=== PATIENT | male | born 1940 | race Caucasian/White ===

== ENCOUNTER → 2018-06-14 | Outpatient (CLI) | payer MEDICARE, BC | END | disposition home or self-care (01) | LOC: LABPAT 15:35 | PROVIDERS: ATTEND Surgery | DX: Z01.818 Encounter for other preprocedural examination (principal); K43.2 Incisional hernia without obstruction or gangrene | CPT/HCPCS: 36415; 86850; 86900; 86901; 93005 ==

== ENCOUNTER 2018-06-22 09:18 | Day surgery (SDC) | payer MEDICARE, BC ==
[2018-06-17 13:33] VITALS: BMI 34.0
[~2018-06-22 09:18] MED LIST: DEXAMETHASONE SOD PHOSPHATE 10 MG/ML 1 ML VIAL IV ONE; HEPARIN SODIUM,PORCINE 5,000 UNIT/ML 1 ML VIAL SQ ONE; HYDROmorphone 0.5 MG/0.5 ML SYRINGE IVP PRN; LACTATED RINGERS 1,000 ML IV SCH; LIDOCAINE 1% 20 ML VIAL (10MG/ML) FOR IV START INTRADERMA PRN; ONDANSETRON 4 MG/2 ML VIAL IVP ONE; ceFAZolin 3 GM in SODIUM CHLORIDE 0.9% 100 ML IVPB ONE
[2018-06-22] MEDS ORDERED: LACTATED RINGERS 1,000 ML IV ONE ×2 (10:30→12:20)
[2018-06-22] MEDS ORDERED: ONDANSETRON 4 MG/2 ML VIAL IVP ONE (10:35)
[2018-06-22] MEDS ORDERED: MIDAZOLAM (PF) 2 MG/2 ML VIAL IVP ONE (10:56)
--- NOTE | 2018-06-22 11:01 | P.GSHP ---
History of Present Illness H&P Date: 06/22/18 Chief Complaint: Ventral hernia This is a 77-year-old male who has developed a ventral hernia. Patient is a mass in the supraumbilical position. Past Medical History Past Medical History: Atrial Fibrillation, Heart Failure, GERD/Reflux, Renal Disease, Sleep Apnea/CPAP/BIPAP, Thyroid Disorder Additional Past Medical History / Comment(s): has cpap History of Any Multi-Drug Resistant Organisms: None Reported Past Surgical History: Hernia Repair, Pacemaker Additional Past Surgical History / Comment(s): aortic valve replacement 2011 Past Anesthesia/Blood Transfusion Reactions: No Reported Reaction Type of Cardiac Device: Permanent Pacemaker Device Placement Date:: 2013 Smoking Status: Never smoker - Past Family History Mother Family Medical History: Cancer Father Family Medical History: Cancer Brother(s) Family Medical History: Cancer Medications and Allergies Home Medications Medication Instructions Recorded Confirmed Type Bumetanide [BUMEX] 2 mg PO BID 06/17/18 06/22/18 History Cetirizine HCl [Zyrtec] 10 mg PO HS 06/17/18 06/22/18 History Cholecalciferol [Vitamin D3] 1,000 unit PO DAILY 06/17/18 06/22/18 History Cod Liver Oil 1 each PO DAILY 06/17/18 06/22/18 History Fluticasone Nasal [place] [Flonase 1 spray EA NOSTRIL DAILY PRN 06/17/18 06/22/18 History Nasal [place]] Levothyroxine Sodium [Synthroid] 50 mcg PO DAILY 06/17/18 06/22/18 History Metolazone [Zaroxolyn] 2.5 mg PO MOTH PRN 06/17/18 06/22/18 History Montelukast [Singulair] 10 mg PO DAILY 06/17/18 06/22/18 History Multivitamins, Thera [Multivitamin 1 tab PO DAILY 06/17/18 06/22/18 History (formulary)] Ocuvite Lutein 1 tab PO DAILY 06/17/18 06/22/18 History Omeprazole [PriLOSEC] 20 mg PO AC-BID 06/17/18 06/22/18 History Potassium Chloride 40 meq PO BID 06/17/18 06/22/18 History Prevagen 10 mg PO DAILY 06/17/18 06/22/18 History Sennosides [Ex-Lax Maximum 50 mg PO BID 06/17/18 06/22/18 History Strength] Sotalol HCl [Sotalol AF] 120 mg PO BID 06/17/18 06/22/18 History Stool Softner 1 tab PO BID 06/17/18 06/22/18 History Tamsulosin HCl [Flomax] 0.4 mg PO HS 06/17/18 06/22/18 History Warfarin [Coumadin] 7.5 mg PO DAILY 06/17/18 06/22/18 History buPROPion [Wellbutrin] 100 mg PO DAILY 06/17/18 06/22/18 History Allergies Allergy/AdvReac Type Severity Reaction Status Date / Time diphenhydramine Allergy Itching Verified 06/22/18 10:38 [From Xiomara] Surgical - Exam Vital Signs Temp Pulse Resp BP Pulse Ox 97.1 F L 80 16 104/58 97 06/22/18 10:25 06/22/18 10:25 06/22/18 10:25 06/22/18 10:25 06/22/18 10:25 - General well developed, well nourished, no distress - Eyes PERRL - ENT normal pinna - Neck no masses - Respiratory normal expansion - Cardiovascular Rhythm: regular - Abdomen 5 cm ventral hernia located in the supraumbilical position Abdomen: soft, non tender Assessment and Plan Assessment: Ventral hernia. We'll perform laparoscopic robotic-assisted repair.
[2018-06-22] MEDS ORDERED: BUPIVACAIN-EPI 0.5%-1:200,000 30 ML VIAL SQ ONE (11:16)
[2018-06-22] MEDS ORDERED: GLYCOPYRROLATE 0.2 MG/ML 2 ML VIAL ONE (11:21)
[2018-06-22] MEDS ORDERED: ROPIVACAINE 5 MG/ML 30 ML VIAL ONE (11:21)
[2018-06-22] MEDS ORDERED: SUCCINYLCHOLINE CHLORIDE 100 MG/5 ML SYR IV ONE (11:21)
[2018-06-22] MEDS ORDERED: LIDOCAINE 1% INJ 10MG/ML (20 ML MDV) ONE (11:21)
[2018-06-22] MEDS ORDERED: fentaNYL (PF) 50 MCG/ML 2 ML AMP ONE (11:21)
[2018-06-22] MEDS ORDERED: LIDOCAINE 2%-EPI 1:100,000 20 ML VIAL ONE (11:21)
[2018-06-22] MEDS ORDERED: PROPOFOL 10 MG/ML 20 ML VIAL IV ONE (11:21)
[2018-06-22] MEDS ORDERED: ROCURONIUM BROMIDE 10 MG/ML 10 ML VIAL IV ONE (11:21)
[2018-06-22] MEDS ORDERED: NEOSTIGMINE 1 MG/ML 10 ML VIAL ONE (11:21)
[2018-06-22 12:36] VITALS: TEMP 97
--- NOTE | 2018-06-22 12:41 | P.OP ---
Date of Procedure: 06/22/18 Preoperative Diagnosis: Umbilical hernia Postoperative Diagnosis: Laparoscopic repair of umbilical hernia infarcted omentum Procedure(s) Performed: Laparoscopic robotic system repair of umbilical hernia Excision of infarcted omentum Anesthesia: MARGARET Surgeon: Omari Franco Estimated Blood Loss (ml): 5 Pathology: other (Omentum) Condition: stable Disposition: PACU Description of Procedure: TThe patient was placed on the operating table in the supine position. He received general anesthesia. His abdomen was prepped and draped usual fashion. Using a 5 mm optical trocar under direct visualization the peritoneal cavity was entered in the left upper quadrant. The abdomen was then insufflated. The laparoscope was placed back into the perineal cavity. Next a 8 mm robotic trocar was placed in the left lower quadrant and a 12 mm robotic trocar was priyanka james in the left lateral position. The original 5 mm trocar was exchanged for a 8 mm robotic trocar. The patient's placed in the left side up position. And the patient was undocked the robot. There was a portion of the omentum which was infarcted and adhered to the abdominal wall. This was dissected using the cautery. The specimen was sent to pathology. The umbilical hernia was visualized. Using hook cautery the peritoneum over the umbilical hernia was excised. The fascial opening was repaired using 0V LOC suture. Next a piece of 11 cm round ventral light ST mesh was placed into the. Cavity and secured with 2 OV lock suture. The patient was undocked the robot. The needles were retrieved. The fascia of the 12 mm trocar site was closed with 0 Ethibond suture. Skin was closed in terrupted 3-0 Monocryl suture. Dermabond dressings was applied. Patient top procedure well and was sent to recovery room stable condition.
--- NOTE | 2018-06-22 13:38 | P.ONQ ---
Anesthesiology Proc Note - PNB - Peripheral Nerve Block Performed Bilateral Rectus Abdominis Single Time Out Performed: Yes Procedure Start Time: 10:57 Procedure Stop Time: 11:04 Indication: Acute Post-Operative Pain, Requested by physician Sedation Type: Sedate with meaningful contact maintained Preparation: Sterile Prep Position: Supine Needle Size: 50mm (2") Needle Gauge: 21 Technique: Ultrasound (ropi .5% 15cc plus xylo 2% with epi 10cc) Blood Aspirated: No Pain Paresthesia on Injection Noted: No Resistance on Injection: Normal Events: Uneventful and Well Tolerated
[2018-06-22] MEDS ORDERED: HYDROcodone/APAP 7.5-325MG 1 EACH TAB PO ONE (13:54)
[2018-06-22 13:55] VITALS: RESP 18
[2018-06-22 14:31] VITALS: BP 131/77; PULSE 81
== END 2018-06-22 16:25 | disposition home or self-care (01) ==
LOC: OR 09:18
PROVIDERS: ATTEND Surgery
DX: K42.0 Umbilical hernia with obstruction, without gangrene (principal); I48.91 Unspecified atrial fibrillation; I50.9 Heart failure, unspecified; N28.9 Disorder of kidney and ureter, unspecified; E07.9 Disorder of thyroid, unspecified; G47.33 Obstructive sleep apnea (adult) (pediatric); K21.9 Gastro-esophageal reflux disease without esophagitis; Z99.89 Dependence on other enabling machines and devices; Z95.0 Presence of cardiac pacemaker; Z95.2 Presence of prosthetic heart valve; Z79.01 Long term (current) use of anticoagulants; Z79.890 Hormone replacement therapy; Z79.899 Other long term (current) drug therapy; Z88.8 Allergy status to other drugs, medicaments and biological substances
CPT/HCPCS: 64488; 49653; C1781; J1644; J1100; J2710; J0690; J2405; J2001; J3010; J2795; J0330; J2704; J2250; 36415; 86850; 86900; 86901; 88305

== ENCOUNTER 2020-02-22 13:19 | Inpatient (IN) | payer MEDICARE, BC ==
[2020-02-22 14:48] LABS: Basophils # (A) 0.1 k/uL (0-0.2); Basophils % (A) 1 %; Eosinophils # (A) 0.1 k/uL (0-0.7); Eosinophils % (A) 1 %; HCT 36.2 % (39.0-53.0); HGB 11.9 gm/dL (13.0-17.5); Lymphocytes % (A) 16 %; MCH 30.7 pg (25.0-35.0); MCHC 32.8 g/dL (31.0-37.0); MCV 93.5 fL (80.0-100.0); Mean Platelet Volume 7.5; Monocytes % (A) 8 %; Neutrophils # (A) 9.2 k/uL (1.3-7.7); Neutrophils % (A) 72 %; Platelet Count 213 k/uL (150-450); RBC 3.87 m/uL (4.30-5.90); RDW 15.7 % (11.5-15.5); WBC 12.7 k/uL (3.8-10.6)
[2020-02-22 15:00] LABS: D-Dimer 0.55 mg/L FEU (<0.60); INR 1.3 (<1.2); Partial Thromboplastin Time 29.5 sec (22.0-30.0); Prothrombin Time 12.7 sec (9.0-12.0)
[2020-02-22 15:09] LABS: Albumin 3.8 g/dL (3.5-5.0); Calcium 9.6 mg/dL (8.4-10.2); Magnesium 2.1 mg/dL (1.6-2.3); Potassium 3.9 mmol/L (3.5-5.1); Total Bilirubin 0.8 mg/dL (0.2-1.3); Total Protein 7.1 g/dL (6.3-8.2)
[2020-02-22] MEDS ORDERED: FUROSEMIDE 10 MG/ML 4 ML VIAL IV STA (15:51)
--- NOTE | 2020-02-22 16:01 | ED ---
SOB HPI - General Chief Complaint: Weakness Stated Complaint: ABD pain,SOB Time Seen by Provider: 02/22/20 13:20 Source: patient Mode of arrival: ambulatory Limitations: no limitations - History of Present Illness Initial Comments: Patient is a 79-year-old male possible history of A. fib, heart failure who presents to the emergency department with reported exertional dyspnea. States the symptoms have been present since January 11 when he had an ablation at [facility] in [place]. States he followed up with his urologist who is insistent that it wasn't related to his heart and therefore referred him to his show card letterer. Patient states his symptoms are so severe that it led him to the emergency department [facility] yesterday. Chest x-ray was performed. Computed tomography scan of the abdomen and pelvis was performed as the patient was complaining of bilateral flank pain. Chest x-ray demonstrated vascular congestion. They were going to transfer the patient to [place] last night however because the patient had an appointment with Dr. Jones today, that he follow-up with him first. Patient was seen in Dr. Jones's office and he sent the patient immediately here for hospital admission. Patient denies any chest pain. No nausea or vomiting. NO other alleviating, centrifugal separator modifying factors - Related Data Home Medications Medication Instructions Recorded Confirmed Bumetanide [BUMEX] 2 mg PO BID 06/17/18 02/22/20 Cholecalciferol [Vitamin D3] 2,000 unit PO DAILY 06/17/18 02/22/20 Cod Liver Oil 1 cap PO DAILY 06/17/18 02/22/20 Fluticasone Nasal [place] [Flonase 1 spray EA NOSTRIL DAILY PRN 06/17/18 02/22/20 Nasal [place]] Montelukast [Singulair] 10 mg PO HS 06/17/18 02/22/20 Multivitamins, Thera [Multivitamin 1 tab PO AC-BRKFST 06/17/18 02/22/20 (formulary)] Omeprazole [PriLOSEC] 20 mg PO AC-BID 06/17/18 02/22/20 Potassium Chloride 40 meq PO BID 06/17/18 02/22/20 Tamsulosin HCl [Flomax] 0.4 mg PO HS 06/17/18 02/22/20 metOLazone [Zaroxolyn] 5 mg PO DAILY PRN 06/17/18 02/22/20 Acetaminophen Tab [Tylenol Tab] 500 mg PO Q4H PRN 02/22/20 02/22/20 Acetaminophen [Tylenol Arthritis] 1,300 mg PO Q8H PRN 02/22/20 02/22/20 Allopurinol [Zyloprim] 100 mg PO AC-BRKFST 02/22/20 02/22/20 Amiodarone [Cordarone] 200 mg PO AC-BRKFST 02/22/20 02/22/20 Apixaban [Eliquis] 5 mg PO BID 02/22/20 02/22/20 Docusate [Colace] 100 mg PO DAILY PRN 02/22/20 02/22/20 Levothyroxine Sodium [Synthroid] 75 mcg PO DAILY 02/22/20 02/22/20 Loratadine 10 mg PO AC-BRKFST 02/22/20 02/22/20 Magnesium Oxide [Baptiste] 500 mg PO AC-BRKFST 02/22/20 02/22/20 Spironolactone 12.5 mg PO DAILY 02/22/20 02/22/20 Vits A,C,E/Lutein/Minerals 1 tab PO DAILY 02/22/20 02/22/20 [Ocuvite with Lutein Tablet] buPROPion HCL [Wellbutrin SR] 100 mg PO BID 02/22/20 02/22/20 carvediloL [Coreg] 3.125 mg PO PC-BID 02/22/20 02/22/20 Allergies Allergy/AdvReac Type Severity Reaction Status Date / Time diphenhydramine Allergy Itching Verified 02/22/20 16:16 [From Benadryl] Review of Systems ROS Statement: Those systems with pertinent positive or pertinent negative responses have been documented in the HPI. ROS Other: All systems not noted in ROS Statement are negative. Past Medical History Past Medical History: Atrial Fibrillation, Heart Failure, GERD/Reflux, Renal Disease, Sleep Apnea/CPAP/BIPAP, Thyroid Disorder Additional Past Medical History / Comment(s): has cpap History of Any Multi-Drug Resistant Organisms: None Reported Past Surgical History: Hernia Repair, Pacemaker Additional Past Surgical History / Comment(s): aortic valve replacement 2011 Past Anesthesia/Blood Transfusion Reactions: No Reported Reaction Type of Cardiac Device: Permanent Pacemaker Device Placement Date:: 2013 Past Psychological History: No Psychological Hx Reported Smoking Status: Never smoker Past Alcohol Use History: Rare Past Drug Use History: None Reported - Past Family History Mother Family Medical History: Cancer Father Family Medical History: Cancer Brother(s) Family Medical History: Cancer General Exam Limitations: no limitations General appearance: alert, in no apparent distress Head exam: Present: atraumatic, normocephalic, normal inspection Eye exam: Present: normal appearance, PERRL, EOMI. Absent: scleral icterus, conjunctival injection, periorbital swelling ENT exam: Present: normal exam, mucous membranes moist Neck exam: Present: normal inspection. Absent: tenderness, meningismus, lymphadenopathy Respiratory exam: Present: normal lung sounds bilaterally, other (dyspneic when moving around in bed or attempting to ambulate). Absent: respiratory distress, wheezes, rales, rhonchi, stridor Cardiovascular Exam: Present: regular rate, normal rhythm, normal heart sounds. Absent: systolic murmur, diastolic murmur, rubs, gallop, clicks GI/Abdominal exam: Present: soft, normal bowel sounds. Absent: distended, tenderness, guarding, rebound, rigid Extremities exam: Present: normal inspection, full ROM, normal capillary refill. Absent: tenderness, pedal edema, joint swelling, calf tenderness Back exam: Present: normal inspection Neurological exam: Present: alert, oriented X3, CN II-XII intact Psychiatric exam: Present: normal affect, normal mood Skin exam: Present: warm, dry, intact, normal color. Absent: rash Course Vital Signs 02/22/20 02/22/20 02/22/20 13:22 13:54 13:56 Temperature 97.8 F Pulse Rate 98 Pulse Rate [ 98 Shelter Supervisor ] Respiratory 18 23 Rate Blood Pressure 103/50 Blood Pressure [Left Arm] O2 Sat by Pulse 100 Oximetry 02/22/20 02/22/20 02/22/20 15:41 16:12 16:32 Temperature 97.6 F Pulse Rate 70 78 Pulse Rate [ 86 Shelter Supervisor ] Respiratory 18 18 24 Rate Blood Pressure 123/62 112/63 Blood Pressure 124/67 [Left Arm] O2 Sat by Pulse 95 96 97 Oximetry 02/22/20 02/22/20 17:57 18:17 Temperature Pulse Rate 80 87 Pulse Rate [ Shelter Supervisor ] Respiratory 18 18 Rate Blood Pressure 113/52 129/56 Blood Pressure [Left Arm] O2 Sat by Pulse 96 97 Oximetry Medical Decision Making - Medical Decision Making Upon arrival patient was placed into room 2. A thorough history and physical exam was performed. Laboratories as were conducted. Did review the patient's history. Lab studies remarkable for a troponin of 0.025. BNP is 3500. Lactic acid 2.7. The patient was given a dose of Lasix area and recommended hospital admission for evaluation by cardiology and pulmonology. Discussed case with Dr. Gonzales who accepted admission. Patient currently awaiting a bed - Lab Data Result diagrams: 02/25/20 05:39 02/25/20 05:39 Lab Results 02/22/20 02/22/20 02/22/20 Range/Units 14:22 14:22 14:22 WBC 12.7 H (3.8-10.6) k/uL RBC 3.87 L (4.30-5.90) m/uL Hgb 11.9 L (13.0-17.5) gm/dL Hct 36.2 L (39.0-53.0) % MCV 93.5 (80.0-100.0) fL MCH 30.7 (25.0-35.0) pg MCHC 32.8 (31.0-37.0) g/dL RDW 15.7 H (11.5-15.5) % Plt Count 213 (150-450) k/uL MPV 7.5 Neutrophils % 72 % Lymphocytes % 16 % Monocytes % 8 % Eosinophils % 1 % Basophils % 1 % Neutrophils # 9.2 H (1.3-7.7) k/uL Lymphocytes # 2.0 (1.0-4.8) k/uL Monocytes # 1.0 (0-1.0) k/uL Eosinophils # 0.1 (0-0.7) k/uL Basophils # 0.1 (0-0.2) k/uL PT 12.7 H (9.0-12.0) sec INR 1.3 H (<1.2) APTT 29.5 (22.0-30.0) sec D-Dimer 0.55 (<0.60) mg/L FEU Sodium 137 (137-145) mmol/L Potassium 3.9 (3.5-5.1) mmol/L Chloride 97 L (98-107) mmol/L Carbon Dioxide 29 (22-30) mmol/L Anion Gap 11 mmol/L BUN 41 H (9-20) mg/dL Creatinine 2.11 H (0.66-1.25) mg/dL Est GFR (CKD-EPI)AfAm 33 (>60 ml/min/1.73 sqM) Est GFR (CKD-EPI)NonAf 29 (>60 ml/min/1.73 sqM) Glucose 107 H (74-99) mg/dL Lactic Ac Sepsis Rflx Plasma Lactic Acid Eugene (0.7-2.0) mmol/L Calcium 9.6 (8.4-10.2) mg/dL Magnesium 2.1 (1.6-2.3) mg/dL Total Bilirubin 0.8 (0.2-1.3) mg/dL AST 32 (17-59) U/L ALT 22 (4-49) U/L Alkaline Phosphatase 124 (38-126) U/L Troponin I (0.000-0.034) ng/mL NT-Pro-B Natriuret Pep pg/mL Total Protein 7.1 (6.3-8.2) g/dL Albumin 3.8 (3.5-5.0) g/dL Lipase 88 (23-300) U/L 02/22/20 02/22/20 02/22/20 Range/Units 14:22 14:22 14:22 WBC (3.8-10.6) k/uL RBC (4.30-5.90) m/uL Hgb (13.0-17.5) gm/dL Hct (39.0-53.0) % MCV (80.0-100.0) fL MCH (25.0-35.0) pg MCHC (31.0-37.0) g/dL RDW (11.5-15.5) % Plt Count (150-450) k/uL MPV Neutrophils % % Lymphocytes % % Monocytes % % Eosinophils % % Basophils % % Neutrophils # (1.3-7.7) k/uL Lymphocytes # (1.0-4.8) k/uL Monocytes # (0-1.0) k/uL Eosinophils # (0-0.7) k/uL Basophils # (0-0.2) k/uL PT (9.0-12.0) sec INR (<1.2) APTT (22.0-30.0) sec D-Dimer (<0.60) mg/L FEU Sodium (137-145) mmol/L Potassium (3.5-5.1) mmol/L Chloride (98-107) mmol/L Carbon Dioxide (22-30) mmol/L Anion Gap mmol/L BUN (9-20) mg/dL Creatinine (0.66-1.25) mg/dL Est GFR (CKD-EPI)AfAm (>60 ml/min/1.73 sqM) Est GFR (CKD-EPI)NonAf (>60 ml/min/1.73 sqM) Glucose (74-99) mg/dL Lactic Ac Sepsis Rflx Plasma Lactic Acid Eugene 2.7 H* (0.7-2.0) mmol/L Calcium (8.4-10.2) mg/dL Magnesium (1.6-2.3) mg/dL Total Bilirubin (0.2-1.3) mg/dL AST (17-59) U/L ALT (4-49) U/L Alkaline Phosphatase (38-126) U/L Troponin I 0.025 (0.000-0.034) ng/mL NT-Pro-B Natriuret Pep 3510 pg/mL Total Protein (6.3-8.2) g/dL Albumin (3.5-5.0) g/dL Lipase (23-300) U/L 02/22/20 Range/Units 15:19 WBC (3.8-10.6) k/uL RBC (4.30-5.90) m/uL Hgb (13.0-17.5) gm/dL Hct (39.0-53.0) % MCV (80.0-100.0) fL MCH (25.0-35.0) pg MCHC (31.0-37.0) g/dL RDW (11.5-15.5) % Plt Count (150-450) k/uL MPV Neutrophils % % Lymphocytes % % Monocytes % % Eosinophils % % Basophils % % Neutrophils # (1.3-7.7) k/uL Lymphocytes # (1.0-4.8) k/uL Monocytes # (0-1.0) k/uL Eosinophils # (0-0.7) k/uL Basophils # (0-0.2) k/uL PT (9.0-12.0) sec INR (<1.2) APTT (22.0-30.0) sec D-Dimer (<0.60) mg/L FEU Sodium (137-145) mmol/L Potassium (3.5-5.1) mmol/L Chloride (98-107) mmol/L Carbon Dioxide (22-30) mmol/L Anion Gap mmol/L BUN (9-20) mg/dL Creatinine (0.66-1.25) mg/dL Est GFR (CKD-EPI)AfAm (>60 ml/min/1.73 sqM) Est GFR (CKD-EPI)NonAf (>60 ml/min/1.73 sqM) Glucose (74-99) mg/dL Lactic Ac Sepsis Rflx Y Plasma Lactic Acid Eugene (0.7-2.0) mmol/L Calcium (8.4-10.2) mg/dL Magnesium (1.6-2.3) mg/dL Total Bilirubin (0.2-1.3) mg/dL AST (17-59) U/L ALT (4-49) U/L Alkaline Phosphatase (38-126) U/L Troponin I (0.000-0.034) ng/mL NT-Pro-B Natriuret Pep pg/mL Total Protein (6.3-8.2) g/dL Albumin (3.5-5.0) g/dL Lipase (23-300) U/L - EKG Data EKG Comments: EKG demonstrates a ventricularly paced rhythm. Rate is 79. QRS 158. QTC of 548. Pacemaker captures appropriately. Disposition Clinical Impression: Flank pain, Exertional dyspnea, CHF (congestive heart failure), ADELINE (acute kidney injury) Disposition: ADMITTED IP TO THIS [facility] Condition: Stable Is patient prescribed a controlled substance at d/c from ED?: No Decision to Admit Reason: Admit from EC Decision Date: 02/22/20 Decision Time: 16:02
[2020-02-22] MEDS ORDERED: NALOXONE 0.4 MG/ML 1 ML VIAL IV PRN (16:02)
[2020-02-22] MEDS ORDERED: MORPHINE SULFATE 2 MG/ML SYRINGE IVP PRN (16:16)
[2020-02-22] MEDS ORDERED: MORPHINE SULFATE 2 MG/ML SYRINGE IVP STA (16:17)
[2020-02-23] MEDS: APIXABAN 5 MG TAB PO SCH ×3 (00:36→19:30)
[2020-02-23] MEDS: buPROPion SR 100 MG TABLET.ER PO SCH ×3 (00:36→19:35)
[2020-02-23] MEDS: BUMETANIDE 1 MG TAB PO SCH ×3 (00:37→19:35)
[2020-02-23] MEDS: carvediloL 3.125 MG TAB PO SCH ×3 (00:37→17:23)
[2020-02-23] MEDS: POTASSIUM CHLORIDE ER 20 MEQ TAB.ER PO SCH ×3 (00:37→19:30)
[2020-02-23] MEDS: ACETAMINOPHEN TAB 500 MG TAB PO PRN ×3 (05:09→19:30)
[2020-02-23] MEDS: LEVOTHYROXINE 75 MCG TAB PO SCH (05:10)
[2020-02-23 07:34] LABS: Basophils # (A) 0.1 k/uL (0-0.2); Basophils % (A) 1 %; Eosinophils # (A) 0.1 k/uL (0-0.7); Eosinophils % (A) 1 %; HCT 32.6 % (39.0-53.0); HGB 10.7 gm/dL (13.0-17.5); Lymphocytes # (A) 1.4 k/uL (1.0-4.8); Lymphocytes % (A) 13 %; MCH 30.5 pg (25.0-35.0); MCHC 32.8 g/dL (31.0-37.0); MCV 93.2 fL (80.0-100.0); Mean Platelet Volume 7.3; Monocytes # (A) 0.8 k/uL (0-1.0); Monocytes % (A) 7 %; Neutrophils # (A) 8.4 k/uL (1.3-7.7); Neutrophils % (A) 77 %; Platelet Count 170 k/uL (150-450); RDW 15.8 % (11.5-15.5); WBC 10.9 k/uL (3.8-10.6)
[2020-02-23] MEDS: MAGNESIUM OXIDE 400 MG TAB PO SCH (08:55)
[2020-02-23] MEDS: SPIRONOLACTONE 25 MG TAB PO SCH (08:55)
[2020-02-23] MEDS: LORATADINE 10 MG TAB PO SCH (08:55)
[2020-02-23] MEDS: AMIODARONE 200 MG TAB PO SCH (08:55)
[2020-02-23] MEDS: allopurinoL 100 MG TAB PO SCH (08:56)
[2020-02-23] MEDS ORDERED: metOLazone 5 MG TAB PO PRN (09:00)
[2020-02-23 11:05] LABS: African American GFR (CKD) 35.7 (60.0-200.0); Anion Gap 6.7 mmol/L (4.00-12.00); Carbon Dioxide 32.3 mmol/L (21.6-31.8); Non-African American GFR(CKD) 30.8 (60.0-200.0); Potassium 3.5 mmol/L (3.5-5.5)
--- NOTE | 2020-02-23 13:21 | XR ---
EXAMINATION TYPE: XR chest 1V portable DATE OF EXAM: 02/23/2020 COMPARISON: 06/26/2013 INDICATION: Dyspnea TECHNIQUE: Single frontal view of the chest is obtained. FINDINGS: The heart size is a prominent. Pacemaker overlies left chest. Sternotomy wires are in the midline.. The pulmonary vasculature is normal. The lungs are clear. No pneumothorax is evident. IMPRESSION: 1. No suspicious acute pulmonary process.
[2020-02-23] MEDS ORDERED: bisacodyL 10 MG SUPP RECTAL PRN (14:21)
[2020-02-23] MEDS ORDERED: bisacodyL 10 MG SUPP RECTAL STA (14:21)
--- NOTE | 2020-02-23 14:50 | P.HPIM ---
History of Present Illness H&P Date: 02/23/20 Chief Complaint: dyspnea on exertion 79 year old man with history of HFrEF s/p BiV, CKD III, s/p TAVR, AFlutter s/p ablation, CHICA on CPAP, hypothyroidism, HTN/HLD presented with dyspnea on exertion. Patient was seen in the ER in [place] for CAMACHO, gradually progressing, and was sent home with pulmonology follow up. However, upon being seen by pulmonology in clinic, he was sent to the ER in [facility] for admission given poor exercise tolerance. Pt reports having history of aortic valve replacement and recent ablation for rhythm issue. He says that since his ablat ion on 01/11, his symptoms have progressed. In [place], patient had a workup done with CXR and CT A/P, which demonstrated vascular congestion. Unfortunately the report from the CT A/P is not available to me at this time. Patient denies fevers, chills, nausea, vomiting, chest pain, palpitations, syncope, abdominal pain, dysuria, dyschezia, numbness/weakness of extremities. CXR shows vascular congestion. EKG demonstrates atrial flutter with rate of 300, and ventricle-paced rhythm at 70. BNP was 3500 on admission. Cr was 2.0, unclear baseline. Review of Systems All Systems reviewed and pertinent positives and negatives noted in HPI, all other symptoms are negative Past Medical History Past Medical History: Atrial Fibrillation, Heart Failure, GERD/Reflux, Renal Disease, Sleep Apnea/CPAP/BIPAP, Thyroid Disorder Additional Past Medical History / Comment(s): has cpap History of Any Multi-Drug Resistant Organisms: None Reported Past Surgical History: Hernia Repair, Pacemaker Additional Past Surgical History / Comment(s): aortic valve replacement 2011 Past Anesthesia/Blood Transfusion Reactions: No Reported Reaction Type of Cardiac Device: Permanent Pacemaker Device Placement Date:: 2013 Past Psychological History: No Psychological Hx Reported Smoking Status: Never smoker Past Alcohol Use History: Rare Past Drug Use History: None Reported - Past Family History Mother Family Medical History: Cancer Father Family Medical History: Cancer Brother(s) Family Medical History: Cancer Medications and Allergies Home Medications Medication Instructions Recorded Confirmed Type Bumetanide [BUMEX] 2 mg PO BID 06/17/18 02/22/20 History Cholecalciferol [Vitamin D3] 2,000 unit PO DAILY 06/17/18 02/22/20 History Cod Liver Oil 1 cap PO DAILY 06/17/18 02/22/20 History Fluticasone Nasal Burton [Flonase 1 spray EA NOSTRIL DAILY PRN 06/17/18 02/22/20 History Nasal Burton] Montelukast [Singulair] 10 mg PO HS 06/17/18 02/22/20 History Multivitamins, Thera [Multivitamin 1 tab PO AC-BRKFST 06/17/18 02/22/20 History (formulary)] Omeprazole [PriLOSEC] 20 mg PO AC-BID 06/17/18 02/22/20 History Potassium Chloride 40 meq PO BID 06/17/18 02/22/20 History Tamsulosin HCl [Flomax] 0.4 mg PO HS 06/17/18 02/22/20 History metOLazone [Zaroxolyn] 5 mg PO DAILY PRN 06/17/18 02/22/20 History Acetaminophen Tab [Tylenol Tab] 500 mg PO Q4H PRN 02/22/20 02/22/20 History Acetaminophen [Tylenol Arthritis] 1,300 mg PO Q8H PRN 02/22/20 02/22/20 History Allopurinol [Zyloprim] 100 mg PO AC-BRKFST 02/22/20 02/22/20 History Amiodarone [Cordarone] 200 mg PO AC-BRKFST 02/22/20 02/22/20 History Apixaban [Eliquis] 5 mg PO BID 02/22/20 02/22/20 History Docusate [Colace] 100 mg PO DAILY PRN 02/22/20 02/22/20 History Levothyroxine Sodium [Synthroid] 75 mcg PO DAILY 02/22/20 02/22/20 History Loratadine 10 mg PO AC-BRKFST 02/22/20 02/22/20 History Magnesium Oxide [Baptiste] 500 mg PO AC-BRKFST 02/22/20 02/22/20 History Spironolactone 12.5 mg PO DAILY 02/22/20 02/22/20 History Vits A,C,E/Lutein/Minerals 1 tab PO DAILY 02/22/20 02/22/20 History [Ocuvite with Lutein Tablet] buPROPion HCL [Wellbutrin SR] 100 mg PO BID 02/22/20 02/22/20 History carvediloL [Coreg] 3.125 mg PO PC-BID 02/22/20 02/22/20 History Allergies Allergy/AdvReac Type Severity Reaction Status Date / Time diphenhydramine Allergy Itching Verified 02/22/20 16:16 [From Benadryl] Physical Exam Osteopathic Statement: *. No significant issues noted on an osteopathic structural exam other than those noted in the History and Physical/Consult. Vitals: Vital Signs Temp Pulse Pulse Resp BP BP Pulse Ox 02/23/20 14:00 97.4 F L 86 16 130/75 99 02/23/20 08:00 97.5 F L 90 22 115/64 96 02/23/20 02:00 97.5 F L 82 18 107/52 93 L 02/22/20 20:00 97.6 F 82 24 124/67 97 02/22/20 18:17 87 18 129/56 97 02/22/20 17:57 80 18 113/52 96 02/22/20 16:32 97.6 F 86 24 124/67 97 02/22/20 16:12 78 18 112/63 96 02/22/20 15:41 70 18 123/62 95 Intake and Output 02/22/20 02/23/20 02/23/20 22:59 06:59 14:59 Intake Total 354 Balance 354 Intake: Oral 354 Other: Voiding Method Toilet Toilet # Voids 1 1 1 Weight 117.48 kg Gen: awake, alert HEENT: normocephalic, atraumatic, good hearing acuity, moist mucous membranes Resp: good air exchange, breathing comfortably with no accessory muscle use CVS: good distal perfusion x 4, +JVD to jaw in upright position, bounding carotid pulses GI: soft, NTTP, ND : no SPT, no CVAT, villa catheter not present MSK: + doughy 3+ pitting edema, no clubbing Neuro: non-focal, moving all extremities Psych: cooperative, euthymic mood Results CBC & Chem 7: 02/23/20 06:48 02/23/20 06:48 Labs: Abnormal Lab Results - Last 24 Hours (Table) 02/22/20 02/22/20 02/22/20 Range/Units 14:22 14:22 14:22 WBC 12.7 H (3.8-10.6) k/uL RBC 3.87 L (4.30-5.90) m/uL Hgb 11.9 L (13.0-17.5) gm/dL Hct 36.2 L (39.0-53.0) % RDW 15.7 H (11.5-15.5) % Neutrophils # 9.2 H (1.3-7.7) k/uL PT 12.7 H (9.0-12.0) sec INR 1.3 H (<1.2) Chloride 97 L (98-107) mmol/L Carbon Dioxide (21.6-31.8) mmol/L BUN 41 H (9-20) mg/dL Creatinine 2.11 H (0.66-1.25) mg/dL Est GFR (CKD-EPI)AfAm (60.0-200.0) Est GFR (CKD-EPI)NonAf (60.0-200.0) BUN/Creatinine Ratio (12.00-20.00) Ratio Glucose 107 H (74-99) mg/dL Plasma Lactic Acid Eugene (0.7-2.0) mmol/L 02/22/20 02/23/20 02/23/20 Range/Units 14:22 06:48 06:48 WBC 10.9 H (3.8-10.6) k/uL RBC 3.50 L (4.30-5.90) m/uL Hgb 10.7 L (13.0-17.5) gm/dL Hct 32.6 L (39.0-53.0) % RDW 15.8 H (11.5-15.5) % Neutrophils # 8.4 H (1.3-7.7) k/uL PT (9.0-12.0) sec INR (<1.2) Chloride (98-107) mmol/L Carbon Dioxide 32.3 H (21.6-31.8) mmol/L BUN 42.0 H (9-20) mg/dL Creatinine 2.0 H (0.66-1.25) mg/dL Est GFR (CKD-EPI)AfAm 35.7 L (60.0-200.0) Est GFR (CKD-EPI)NonAf 30.8 L (60.0-200.0) BUN/Creatinine Ratio 21.00 H (12.00-20.00) Ratio Glucose 138 H (74-99) mg/dL Plasma Lactic Acid Eugene 2.7 H* (0.7-2.0) mmol/L Thrombosis Risk Factor Assmnt - Choose All That Apply Any of the Below Risk Factors Present?: No Other Risk Factors: No Other congenital or acquired thrombophilia - If yes, enter type in comment: No Thrombosis Risk Factor Assessment Level: Very Low Risk Assessment and Plan Assessment: 1. Acute on chronic congestive heart failure exacerbation, likely systolic 2. CK D stage III 3. Atrial flutter 4. Biventricular pacemaker, V paced 5. CHICA on CPAP 6. Aortic stenosis status post TAVR in 2011 7. Hypothyroidism 79-year-old man with medical history of heart failure with reduced ejection fraction status post biventricular pacemaker, aortic stenosis status post total aortic valve replacement, atrial flutter status post ablation, CHICA on CPAP, CK D stage III, hypothyroidism presented with increasing dyspnea on exertion since his ablation on 01/11 as well as bounding JVD on physical exam, congested chest x-ray, elevated BNP concerning for heart failure exacerbation. Plan: - admit to telemetry - I/Os, daily weights - rec'd lasix 40mg IV once in ER, continue bumex 2mg BID - repeat echocardiogram - pulmonary consulted by ER - cardiology consult placed - continue home amiodarone, apixaban, coreg - home CPAP at night - continue levothyroxine - bowel regimen: brigitte-colace BID + miralax daily + bisacodyl PRN Full Code
[2020-02-23] MEDS: polyethylene glycoL 3350 17 GM POWD.PACK PO SCH (16:57)
--- NOTE | 2020-02-23 16:57 | ECHOF ---
Referral Reason:congestive heart failure MEASUREMENTS -------- HEIGHT: 177.8 cm WEIGHT: 117.5 kg BP: 130/75 IVSd: 1.7 cm (0.6 - 1.1) LVIDd: 5.3 cm (3.9 - 5.3) LVPWd: 1.9 cm (0.6 - 1.1) IVSs: 2.0 cm LVIDs: 3.6 cm LVPWs: 2.5 cm LAESV Index (A-L): 80.17 ml/m Ao Diam: 3.5 cm (2.0 - 3.7) AV Cusp: 2.0 cm (1.5 - 2.6) AV maxP.21 mmHg AV meanP.04 mmHg AR PHT: 223 ms RAP: 5.00 mmHg RVSP: 43.80 mmHg FINDINGS -------- Sinus rhythm. This was a technically difficult study with suboptimal views. The left ventricular size is normal. There is moderate concentric left ventricular hypertrophy. O verall left ventricular systolic function is low-normal with, an EF between 50 - 55 %. Septal wall motion is delayed and consistent with prior cardiac surgery. The RV was not well visualized. LA is severely dilated >40 ml/m2 The right atrium was not well visualized. 5.0mg of Lumason was utilized for enhancement of images Interatrial and interventricular septum intact. There is a bioprosthetic aortic valve with moderate to severe aortic insuffiency. Somewhat limited v iews of the valve and may consider JC to further assess severity of aortic insuffiency if clinically indicated. Mild mitral annular calcification present. Pyljwddy-nq-zwvhks mitral regurgitation is present. Moderate to severe tricuspid regurgitation present. There is moderate pulmonary hypertension. The right ventricular systolic pressure, as measured by Doppler, is 43.80mmHg. There is no pulmonic regurgitation present. The aortic root size is normal. IVC Not well visulized. There is no pericardial effusion. CONCLUSIONS -------- 1. The left ventricular size is normal. 2. There is moderate concentric left ventricular hypertrophy. 3. Overall left ventricular systolic function is low-normal with, an EF between 50 - 55 %. 4. Septal wall motion is delayed and consistent with prior cardiac surgery. 5. LA is severely dilated >40 ml/m2 6. There is a bioprosthetic aortic valve with moderate to severe aortic insuffiency. Somewhat limite d views of the valve and may consider JC to further assess severity of aortic insuffiency if clinica lly indicated. 7. Mild mitral annular calcification present. 8. Ugkkifam-ci-lzbnzy mitral regurgitation is present. 9. Moderate to severe tricuspid regurgitation present. 10. There is moderate pulmonary hypertension. 11. The right ventricular systolic pressure, as measured by Doppler, is 43.80mmHg. SENIOR NETWORK ENGINEER: Vidhi Quiroz RDCS
--- NOTE | 2020-02-23 19:21 | P.CNPUL ---
History of Present Illness Consult date: 02/23/20 Requesting physician: Abril Hernández Reason for consult: dyspnea Chief complaint: Bilateral flank pain and discomfort History of present illness: This is a pleasant 79-year-old gentleman who has a history of mild intermittent chronic bronchial asthma, chronic sinusitis, seasonal ALLERGIES, hypothyroidism, atrial fibrillation anticoagulated with Eliquis, congestive heart failure. He had recently undergone ablation in the [facility] in [place]. Since that time he had been having issues with bilateral flank area pain and tingling especially once he gets up out of bed in the morning. 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 Prior to him seeing Dr. Ronald Gutierrez in the office yesterday he had been at [facility] where a chest x-ray and CAT scan were reviewed performed and reported as normal. He subsequently was to be transferred here to [place] however the patient left the hospital and went to Dr. Moreira's office who referred him here to the hospital. Chest x-ray reveals no acute pulmonary process. A cardiogram revealed preserved left ventricular systolic function with ejection fraction 50-55%. There is a noted bioprosthetic aortic valve with moderate to severe aortic insufficiency. He does have moderate to severe mitral regurgitation. Moderate pulmonary hypertension. He is seen today in consultation on the regular medical floor. He is currently sitting up in a chair at the bedside. He denies any shortness of breath, cough or congestion. Maintaining good O2 saturations in the 90s on room air. He has no complaints currently. He states when he gets up out of bed as when he has the bilateral flank area pain that hurts on his way to the restroom. White count 10.9. Hemoglobin 10.7. Sodium 137. Potassium 3.5. Creatinine 2.0. Troponins negative 2. Lactic acid 1.4. Review of Systems REVIEW OF SYSTEMS: CONSTITUTIONAL: Denies any recent significant weight loss or weight gain. EYES: Denies change in vision. EARS, NOSE, MOUTH, THROAT: Denies headaches, denies sore throat. CARDIOVASCULAR: Denies chest pain, palpitations or syncopal episodes. RESPIRATORY: Denies shortness of breath, cough, congestion or hemoptysis. GASTROINTESTINAL: Denies change in appetite, positive for bilateral abdominal pain when getting out of bed GENITOURINARY: Denies hematuria, denies infections. MUSKULOSKELETAL: Denies pain, denies swelling. INTEGUMENTARY: Denies rash, denies eczema. NEUROLOGICAL: Denies recent memory loss, no recent seizure activity. PSYCHIATRIC: Denies anxiety, denies depression. HEMATOLOGIC/LYMPHATIC: Denies anemia, denies enlarged lymph nodes. Past Medical History Past Medical History: Atrial Fibrillation, Heart Failure, GERD/Reflux, Renal Disease, Sleep Apnea/CPAP/BIPAP, Thyroid Disorder Additional Past Medical History / Comment(s): has cpap History of Any Multi-Drug Resistant Organisms: None Reported Past Surgical History: Hernia Repair, Pacemaker Additional Past Surgical History / Comment(s): aortic valve replacement 2011 Past Anesthesia/Blood Transfusion Reactions: No Reported Reaction Type of Cardiac Device: Permanent Pacemaker Device Placement Date:: 2013 Past Psychological History: No Psychological Hx Reported Smoking Status: Never smoker Past Alcohol Use History: Rare Past Drug Use History: None Reported - Past Family History Mother Family Medical History: Cancer Father Family Medical History: Cancer Brother(s) Family Medical History: Cancer Medications and Allergies Home Medications Medication Instructions Recorded Confirmed Type Bumetanide [BUMEX] 2 mg PO BID 06/17/18 02/22/20 History Cholecalciferol [Vitamin D3] 2,000 unit PO DAILY 06/17/18 02/22/20 History Cod Liver Oil 1 cap PO DAILY 06/17/18 02/22/20 History Fluticasone Nasal Walker [Flonase 1 spray EA NOSTRIL DAILY PRN 06/17/18 02/22/20 History Nasal Walker] Montelukast [Singulair] 10 mg PO HS 06/17/18 02/22/20 History Multivitamins, Thera [Multivitamin 1 tab PO AC-BRKFST 06/17/18 02/22/20 History (formulary)] Omeprazole [PriLOSEC] 20 mg PO AC-BID 06/17/18 02/22/20 History Potassium Chloride 40 meq PO BID 06/17/18 02/22/20 History Tamsulosin HCl [Flomax] 0.4 mg PO HS 06/17/18 02/22/20 History metOLazone [Zaroxolyn] 5 mg PO DAILY PRN 06/17/18 02/22/20 History Acetaminophen Tab [Tylenol Tab] 500 mg PO Q4H PRN 02/22/20 02/22/20 History Acetaminophen [Tylenol Arthritis] 1,300 mg PO Q8H PRN 02/22/20 02/22/20 History Allopurinol [Zyloprim] 100 mg PO AC-BRKFST 02/22/20 02/22/20 History Amiodarone [Cordarone] 200 mg PO AC-BRKFST 02/22/20 02/22/20 History Apixaban [Eliquis] 5 mg PO BID 02/22/20 02/22/20 History Docusate [Colace] 100 mg PO DAILY PRN 02/22/20 02/22/20 History Levothyroxine Sodium [Synthroid] 75 mcg PO DAILY 02/22/20 02/22/20 History Loratadine 10 mg PO AC-BRKFST 02/22/20 02/22/20 History Magnesium Oxide [Baptiste] 500 mg PO AC-BRKFST 02/22/20 02/22/20 History Spironolactone 12.5 mg PO DAILY 02/22/20 02/22/20 History Vits A,C,E/Lutein/Minerals 1 tab PO DAILY 02/22/20 02/22/20 History [Ocuvite with Lutein Tablet] buPROPion HCL [Wellbutrin SR] 100 mg PO BID 02/22/20 02/22/20 History carvediloL [Coreg] 3.125 mg PO PC-BID 02/22/20 02/22/20 History Allergies Allergy/AdvReac Type Severity Reaction Status Date / Time diphenhydramine Allergy Itching Verified 02/22/20 16:16 [From [facility]] Physical Exam Vitals: Vital Signs Temp Pulse Resp BP Pulse Ox 02/23/20 14:00 97.4 F L 86 16 130/75 99 02/23/20 08:00 97.5 F L 90 22 115/64 96 02/23/20 02:00 97.5 F L 82 18 107/52 93 L 02/22/20 20:00 97.6 F 82 24 124/67 97 Intake and Output 02/23/20 02/23/20 02/23/20 06:59 14:59 22:59 Intake Total 354 Output Total 0 Balance 354 0 Intake: Oral 354 Output: Stool 0 Other: Voiding Method Toilet # Voids 1 1 2 GENERAL EXAM: Pleasant 79-year-old gentleman, on room air. Alert, active, comfortable in no apparent distress. HEAD: Normocephalic. EYES: Normal reaction of pupils, equal size. NOSE: Clear with pink turbinates. THROAT: No erythema or exudates. NECK: No masses, no JVD. CHEST: No chest wall deformity. LUNGS: Equal air entry with no crackles, wheeze, rhonchi or dullness. CVS: S1 and S2 normal with no audible murmur, regular rhythm. ABDOMEN: No hepatosplenomegaly, normal bowel sounds, no guarding or rigidity. SPINE: No scoliosis or deformity SKIN: No rashes CENTRAL NERVOUS SYSTEM: No focal deficits, tone is normal in all 4 extremities. EXTREMITIES: There is no peripheral edema. No clubbing, no cyanosis. Peripheral pulses are intact. Results - Laboratory Findings CBC and BMP: 02/23/20 06:48 02/23/20 06:48 PT/INR, D-dimer PT 12.7 sec (9.0-12.0) H 02/22/20 14:22 INR 1.3 (<1.2) H 02/22/20 14:22 D-Dimer 0.55 mg/L FEU (<0.60) 02/22/20 14:22 Abnormal lab findings: Abnormal Labs 02/22/20 02/22/20 02/22/20 14:22 14:22 14:22 WBC 12.7 H RBC 3.87 L Hgb 11.9 L Hct 36.2 L RDW 15.7 H Neutrophils # 9.2 H PT 12.7 H INR 1.3 H Chloride 97 L Carbon Dioxide BUN 41 H Creatinine 2.11 H Est GFR (CKD-EPI)AfAm Est GFR (CKD-EPI)NonAf BUN/Creatinine Ratio Glucose 107 H Plasma Lactic Acid Eugene 02/22/20 02/23/20 02/23/20 14:22 06:48 06:48 WBC 10.9 H RBC 3.50 L Hgb 10.7 L Hct 32.6 L RDW 15.8 H Neutrophils # 8.4 H PT INR Chloride Carbon Dioxide 32.3 H BUN 42.0 H Creatinine 2.0 H Est GFR (CKD-EPI)AfAm 35.7 L Est GFR (CKD-EPI)NonAf 30.8 L BUN/Creatinine Ratio 21.00 H Glucose 138 H Plasma Lactic Acid Eugene 2.7 H* - Diagnostic Findings Chest x-ray: image reviewed (No acute pulmonary process) Assessment and Plan Assessment: 1 Bilateral flank area abdominal pain of unclear etiology, mainly when the patient gets up out of bed in the a.m. currently pain-free 2 Dyspnea of unclear etiology, chest x-ray normal, possible from valvular heart disease, on room air 3 Recent ablation at [facility] in [place] 4 History of atrial fibrillation, anticoagulated with Eliquis. 5 History of congestive heart failure 6 History of valvular heart disease with a bioprosthetic aortic valve 2011, with moderate to severe aortic sufficiency, moderate to severe mitral regurgitation, moderate pulmonary hypertension 7 History of obstructive sleep apnea 8 Hypothyroidism 9 History of permanent pacemaker implantation 10 Nonsmoker Plan: The patient was seen and evaluated by Dr. Haynes Chest x-ray and labs reviewed He is stable from the pulmonary standpoint, on room air We'll see as needed I, the cosigning physician, performed a history & physical examination of the patient. Lungs sounds are clear. Maintaining good O2 saturations in the 90s on room air. I discussed the assessment and plan of care with my nurse pra joanna, Enriqueta Chavez. I attest to the above note as dictated by her. Time with Patient: Greater than 30
[2020-02-23] MEDS: SENNOSIDES-DOCUSATE SODIUM 1 EACH TAB PO SCH (19:30)
[2020-02-23] MEDS: MONTELUKAST 10 MG TAB PO SCH (19:30)
[2020-02-24] MEDS: LEVOTHYROXINE 75 MCG TAB PO SCH (05:27)
[2020-02-24] MEDS: ACETAMINOPHEN TAB 500 MG TAB PO PRN ×3 (05:27→20:29)
[2020-02-24] MEDS: SENNOSIDES-DOCUSATE SODIUM 1 EACH TAB PO SCH ×2 (08:48→20:28)
[2020-02-24] MEDS: polyethylene glycoL 3350 17 GM POWD.PACK PO SCH (08:48)
[2020-02-24] MEDS: APIXABAN 5 MG TAB PO SCH ×2 (08:48→20:28)
[2020-02-24] MEDS: POTASSIUM CHLORIDE ER 20 MEQ TAB.ER PO SCH ×2 (08:48→20:28)
[2020-02-24] MEDS: MAGNESIUM OXIDE 400 MG TAB PO SCH (08:48)
[2020-02-24] MEDS: LORATADINE 10 MG TAB PO SCH (08:48)
[2020-02-24] MEDS: SPIRONOLACTONE 25 MG TAB PO SCH (08:48)
[2020-02-24] MEDS: BUMETANIDE 1 MG TAB PO SCH ×2 (08:49→20:29)
[2020-02-24] MEDS: AMIODARONE 200 MG TAB PO SCH (08:50)
[2020-02-24] MEDS: buPROPion SR 100 MG TABLET.ER PO SCH ×2 (08:50→20:28)
[2020-02-24] MEDS: carvediloL 3.125 MG TAB PO SCH ×2 (08:51→17:51)
[2020-02-24] MEDS: allopurinoL 100 MG TAB PO SCH (08:51)
[2020-02-24] MEDS ORDERED: NA PHOS,M-B/NA PHOS,DI-BA 133 ML ENEMA RECTAL ONE ×2 (12:35→21:00)
--- NOTE | 2020-02-24 12:45 | P.PN ---
Subjective Progress Note Date: 02/24/20 No new complaints. Pt still dyspneic on exertion. Echo showed mod-severe TR/MR, preserved ejection fraction. Patient is on room air at rest. Continues to report abdominal pain on standing. CT A/P report still unavailable. Images appear to show significant stool burden. Patient is not sure when the last time he pooped was and whether it was large or small. Objective - Vital Signs Vital signs: Vital Signs Temp 98 F 02/24/20 08:00 Pulse 80 02/24/20 08:00 Resp 20 02/24/20 08:00 BP 104/56 02/24/20 08:00 Pulse Ox 99 02/24/20 08:00 Intake & Output 02/23/20 02/24/20 02/24/20 18:59 06:59 18:59 Intake Total 354 Output Total 0 Balance 354 Intake: Oral 354 Output: Stool 0 Other: Voiding Method Toilet Toilet # Voids 2 4 - Exam Gen: awake, alert HEENT: normocephalic, atraumatic, good hearing acuity, moist mucous membranes Resp: good air exchange, breathing comfortably with no accessory muscle use CVS: good distal perfusion x 4, +JVD to jaw in upright position, bounding carotid pulses GI: soft, NTTP, ND : no SPT, no CVAT, villa catheter not present MSK: + doughy 3+ pitting edema, no clubbing Neuro: non-focal, moving all extremities Psych: cooperative, euthymic mood - Labs CBC & Chem 7: 02/23/20 06:48 02/23/20 06:48 Assessment and Plan Assessment: 1. Acute on chronic congestive heart failure exacerbation, likely systolic 2. CK D stage III 3. Atrial flutter 4. Biventricular pacemaker, V paced 5. CHICA on CPAP 6. Aortic stenosis status post TAVR in 2011 7. Hypothyroidism 79-year-old man with medical history of heart failure with reduced ejection fraction status post biventricular pacemaker, aortic stenosis status post total aortic valve replacement, atrial flutter status post ablation, CHICA on CPAP, CK D stage III, hypothyroidism presented with increasing dyspnea on exertion since his ablation on 01/11 as well as bounding JVD on physical exam, congested chest x-ray, elevated BNP concerning for heart failure exacerbation. Plan: - admit to telemetry - I/Os, daily weights - rec'd lasix 40mg IV once in ER, continue bumex 2mg BID - repeat echocardiogram - pulmonary consulted by ER - cardiology consult placed - continue home amiodarone, apixaban, coreg - home CPAP at night - continue levothyroxine - bowel regimen: brigitte-colace BID + miralax daily + bisacodyl PRN + enema PRN Full Code
[2020-02-24 13:29] LABS: Anisocytosis Slight; Basophils # (A) 0.1 k/uL (0-0.2); Basophils % (A) 1 %; Eosinophils # (A) 0.1 k/uL (0-0.7); Eosinophils % (A) 1 %; HCT 35.5 % (39.0-53.0); HGB 11.1 gm/dL (13.0-17.5); Hypochromasia Slight; Lymphocytes # (A) 2.1 k/uL (1.0-4.8); Lymphocytes % (A) 19 %; MCH 29.8 pg (25.0-35.0); MCHC 31.3 g/dL (31.0-37.0); MCV 95.2 fL (80.0-100.0); Mean Platelet Volume 7.5; Monocytes # (A) 0.8 k/uL (0-1.0); Monocytes % (A) 7 %; Neutrophils # (A) 7.5 k/uL (1.3-7.7); Neutrophils % (A) 69 %; Platelet Count 197 k/uL (150-450); RBC 3.72 m/uL (4.30-5.90); RDW 16.1 % (11.5-15.5); WBC 10.8 k/uL (3.8-10.6)
--- NOTE | 2020-02-24 18:11 | P.CRDCN ---
History of Present Illness History of present illness: HISTORY OF PRESENTING ILLNESS Patient is a pleasant 79-year-old male with a history of atrial fibrillation, atrial flutter, chronic diastolic heart failure, status post biventricular permanent pacemaker, recent atrial fibrillation ablation January 02, 2020, hypertension, hyperlipidemia, chronic kidney disease, sleep apnea, hypothyroidism, severe aortic stenosis status post aortic valve replacement in 2011 who presents for workup of his shortness breath and bilateral flank pain. Patient is somewhat of a poor historian and some of history was supplied by calling his who keeps more detailed records. Patient admits initially he had an aortic valve replacement in [address] Diaz at [facility] and then also had a pacemaker in 2013. The does not recall why he needed the pacemaker. During workup for his aortic valve replacement he did have a heart catheterization in 2011 which showed a chronically occluded circumflex however no bypass was performed. He initially did follow with Dr. Patel however in [address] Mills in [facility], [place]. Patient had been worked up for dyspnea and a JC was performed apparently in and October 2019 which the believes was fairly normal. He then was seen with recommendations for an ablation which she believes was a pulmonary vein ablation for his atrial fibrillation. He had this performed with Dr. Farley January 02, 2020 at [facility] in [place]. Unfortunately since that time patient has felt much worse with shortness of breath with minimal activity such as walking the bathroom. Patient followed up with cardiology and admits they were fairly frustrated as they were told that it was not his heart and to follow-up in 6 months. This was apparently with Dr Harman in [facility] [place]. The and also stated that he has been having flank pain which has mainly started since the ablation. Unfortunately it appears that the ablation was unsuccessful with patient currently been in atrial flutter. There is a possibility that the ablation was month to be an AV paris ablation however does not recall this. Patient does have chronic kidney disease. There is documentation from office records of a creatinine of 1.5 in 2011. Patient states he has chronic lower extremity edema which has been going on for months to years. Patient denies any chest pain or pressure. Patient's also admits that he has been having frequent pulsations in his neck. DIAGNOSTICS EKG reveals Atrial flutter, biventricularly paced rhythm. Chest xray "no suspicious pulmonary process" Laboratory reviewed, White blood blood cell count 10.9, hemoglobin 10.7, platelets 170, sodium 137, creatinine 2.0, glucose 138, troponin 0.024, 0.026, 0.025, proBNP 3510, lactic acid 2.7, improved to 1.4, lipase 88, AST 32, ALT 22, bilirubin 0.8. Current cardiac medications include Amiodarone 200 mg daily, Eliquis 5 mg twice a day, Bumex 2 mg twice a day, Coreg 3.125 mg twice a day, Zaroxolyn 5 mg daily, spironolactone 12.5 mg daily REVIEW OF SYSTEMS At the time of my exam: CONSTITUTIONAL: Denies fever or chills. CARDIOVASCULAR: Denies chest pain, +shortness of breath, +orthopnea, no PND or palpitations. RESPIRATORY: Denies cough. GASTROINTESTINAL: +abdominal pain, no diarrhea, constipation, nausea or vomiting. MUSCULOSKELETAL: Denies myalgias. NEUROLOGIC: Denies numbness, tingling or weakness. ENDOCRINE: + fatigue, no weight change, polydipsia or polyurina. GENITOURINARY: Denies burning, hematuria or urgency with micturation. HEMATOLOGIC: Denies history of anemia or bleeding. PHYSICAL EXAMINATION Blood pressure 120/73, pulse 76, respiratory rate 17, 100% on room air CONSTITUTIONAL: No apparent distress. Chronically ill appearing HEENT: Head is normocephalic. Pupils are equal, round. Sclerae anicteric. Mucous membranes of the mouth are moist. + extensive JVD while sitting upright. No carotid bruit. CHEST EXAMINATION: Lungs are clear to auscultation. Mild crackles at bases, No chest wall tenderness is noted on palpation or with deep breathing. + RV heave, + pulsations of the abdomen HEART EXAMINATION: Regular rate and rhythm. S1, S2 heard. +3/6 systolic murmur, 2/4 diastolic murmur, no gallops or rub. ABDOMEN: Soft, nontender. Positive bowel sounds. EXTREMITIES: 2+ peripheral pulses, 2+ lower extremity edema and no calf tenderness. NEUROLOGIC EXAMINATION: Patient is awake, alert and oriented x3. ASSESSMENT 1. Acute on chronic diastolic heart failure 2. History of severe aortic stenosis status post surgical aortic valve replacement 2011 3. History of coronary artery disease with [employer]IAN of circumflex treated medically 4. Typical atrial flutter 5. Paroxysmal atrial fibrillation, currently atrial flutter. Status post questionable atrial fibrillation ablation December 2019 6. Abdominal pain, flank pain 7. Jugular venous distention and pulsations. Questionable related to tricuspid regurgitation versus pacemaker syndrome 8. Moderate to severe aortic insufficiency 9. Moderate to severe mitral regurgitation 10. Moderate to severe tricuspid regurgitation 11. Pulmonary hypertension with RVSP of 43 12. Status post biventricular pacemaker 13. Fatigue PLAN Discussed patient's history extensively with patient and his over the phone. 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 Unfortunately patient has been feeling much worse or the past month and a half since his ablation including class IV heart failure symptoms as well as bilateral flank pain. Dyspnea may be related to pulmonary vein stenosis status post ablation however normally this would require CTA to evaluate and we will refrain given his chronic kidney disease. Additionally his RV lead appears to be nearly below the diaphragm and there could have been lead dislodgment with ablation and manipulation. This may also explain possible flank pain if he is having diaphragmatic pacing. Additionally patient has notable jugular vein pulsations while sitting upright. 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 Jugular vein pulsations may also be related to severe tricuspid regurgitation and V wave. We will check a PA and lateral x-ray to evaluate his RV lead placement as it appears to nearly be below the diaphragm. Additionally we'll interrogate the pacemaker and make sure there is no diaphragmatic pacing. Patient's echo does show poly-valvular disease with concern of possible severe aortic insufficiency as well as moderate to severe mitral regurgitation and moderate to severe tricuspid regurgitation. Apparently he had a JC in October and and we will attempt to obtain records. Discussed with that we may desire a repeat JC to evaluate valvular disease and this would likely also give a good view of the pulmonary veins to evaluate for pulmonic stenosis. Additionally if aggressive workup is unrevealing, may consider right heart catheterization to evaluate for pressures and cardiac output. We will continue with IV diuresis and monitor kidney function closely. Further recommendations to follow. JC and RHC may be considered on Wednesday pending further workup. Past Medical History Past Medical History: Atrial Fibrillation, Heart Failure, GERD/Reflux, Renal Disease, Sleep Apnea/CPAP/BIPAP, Thyroid Disorder Additional Past Medical History / Comment(s): has cpap History of Any Multi-Drug Resistant Organisms: None Reported Past Surgical History: Hernia Repair, Pacemaker Additional Past Surgical History / Comment(s): aortic valve replacement 2011 Past Anesthesia/Blood Transfusion Reactions: No Reported Reaction Type of Cardiac Device: Permanent Pacemaker Device Placement Date:: 2013 Past Psychological History: No Psychological Hx Reported Smoking Status: Never smoker Past Alcohol Use History: Rare Past Drug Use History: None Reported - Past Family History Mother Family Medical History: Cancer Father Family Medical History: Cancer Brother(s) Family Medical History: Cancer Medications and Allergies Home Medications Medication Instructions Recorded Confirmed Type Bumetanide [BUMEX] 2 mg PO BID 06/17/18 02/22/20 History Cholecalciferol [Vitamin D3] 2,000 unit PO DAILY 06/17/18 02/22/20 History Cod Liver Oil 1 cap PO DAILY 06/17/18 02/22/20 History Fluticasone Nasal Amasa [Flonase 1 spray EA NOSTRIL DAILY PRN 06/17/18 02/22/20 History Nasal Amasa] Montelukast [Singulair] 10 mg PO HS 06/17/18 02/22/20 History Multivitamins, Thera [Multivitamin 1 tab PO AC-BRKFST 06/17/18 02/22/20 History (formulary)] Omeprazole [PriLOSEC] 20 mg PO AC-BID 06/17/18 02/22/20 History Potassium Chloride 40 meq PO BID 06/17/18 02/22/20 History Tamsulosin HCl [Flomax] 0.4 mg PO HS 06/17/18 02/22/20 History metOLazone [Zaroxolyn] 5 mg PO DAILY PRN 06/17/18 02/22/20 History Acetaminophen Tab [Tylenol Tab] 500 mg PO Q4H PRN 02/22/20 02/22/20 History Acetaminophen [Tylenol Arthritis] 1,300 mg PO Q8H PRN 02/22/20 02/22/20 History Allopurinol [Zyloprim] 100 mg PO AC-BRKFST 02/22/20 02/22/20 History Amiodarone [Cordarone] 200 mg PO AC-BRKFST 02/22/20 02/22/20 History Apixaban [Eliquis] 5 mg PO BID 02/22/20 02/22/20 History Docusate [Colace] 100 mg PO DAILY PRN 02/22/20 02/22/20 History Levothyroxine Sodium [Synthroid] 75 mcg PO DAILY 02/22/20 02/22/20 History Loratadine 10 mg PO AC-BRKFST 02/22/20 02/22/20 History Magnesium Oxide [Baptiste] 500 mg PO AC-BRKFST 02/22/20 02/22/20 History Spironolactone 12.5 mg PO DAILY 02/22/20 02/22/20 History Vits A,C,E/Lutein/Minerals 1 tab PO DAILY 02/22/20 02/22/20 History [Ocuvite with Lutein Tablet] buPROPion HCL [Wellbutrin SR] 100 mg PO BID 02/22/20 02/22/20 History carvediloL [Coreg] 3.125 mg PO PC-BID 02/22/20 02/22/20 History Allergies Allergy/AdvReac Type Severity Reaction Status Date / Time diphenhydramine Allergy Itching Verified 02/22/20 16:16 [From Xiomara] Physical Exam Vitals: Vital Signs Temp Pulse Pulse Resp BP Pulse Ox 02/24/20 14:00 97.6 F 89 20 110/61 96 02/24/20 08:00 98 F 80 20 104/56 99 02/24/20 02:10 97.4 F L 80 20 111/62 94 L 02/23/20 19:45 96.5 F L 98 20 116/83 90 L Intake and Output 02/24/20 02/24/20 02/24/20 06:59 14:59 22:59 Other: # Voids 4 Results 02/24/20 13:00 02/24/20 13:00 CBC 02/24/20 Range/Units 13:00 WBC 10.8 H (3.8-10.6) k/uL RBC 3.72 L (4.30-5.90) m/uL Hgb 11.1 L (13.0-17.5) gm/dL Hct 35.5 L (39.0-53.0) % Plt Count 197 (150-450) k/uL Current Medications Generic Name Dose Route Start Last Admin Trade Name Freq PRN Reason Stop Dose Admin Acetaminophen 1,000 mg 02/22/20 22:45 02/24/20 11:59 Acetaminophen Tab 500 Mg Tab PO 1,000 mg Q8H PRN Administration Pain Allopurinol 100 mg 02/23/20 07:30 02/24/20 08:51 Allopurinol 100 Mg Tab PO 100 mg AC-BRKFST WILLARD Administration Amiodarone HCl 200 mg 02/23/20 07:30 02/24/20 08:50 Amiodarone 200 Mg Tab PO 200 mg -BRKFST WILLARD Administration Apixaban 5 mg 02/22/20 23:00 02/24/20 08:48 Apixaban 5 Mg Tab PO 5 mg BID WILLARD Administration Bisacodyl 10 mg 02/23/20 14:21 Bisacodyl 10 Mg Supp RECTAL DAILY PRN Constipation Bumetanide 2 mg 02/22/20 23:00 02/24/20 08:49 Bumetanide 1 Mg Tab PO 2 mg BID WILLARD Administration Bupropion HCl 100 mg 02/22/20 23:00 02/24/20 08:50 Bupropion Sr 100 Mg Tablet.Er PO 100 mg BID WILLARD Administration Carvedilol 3.125 mg 02/22/20 23:00 02/24/20 17:51 Carvedilol 3.125 Mg Tab PO 3.125 mg PC-BID WILLARD Administration Levothyroxine Sodium 75 mcg 02/23/20 06:30 02/24/20 05:27 Levothyroxine 75 Mcg Tab PO 75 mcg DAILY@0630 WILLARD Administration Loratadine 10 mg 02/23/20 07:30 02/24/20 08:48 Loratadine 10 Mg Tab PO 10 mg -BRKFST WILLARD Administration Magnesium Oxide 400 mg 02/23/20 07:30 02/24/20 08:48 Magnesium Oxide 400 Mg Tab PO 400 mg -BRKFST WILLARD Administration Metolazone 5 mg 02/23/20 09:00 Metolazone 5 Mg Tab PO DAILY PRN Edema Montelukast Sodium 10 mg 02/23/20 21:00 02/23/20 19:30 Montelukast 10 Mg Tab PO 10 mg HS WILLARD Administration Naloxone HCl 0.2 mg 02/22/20 16:02 Naloxone 0.4 Mg/Ml 1 Ml Vial IV Q2M PRN Opioid Reversal Polyethylene Glycol 17 gm 02/23/20 14:30 02/24/20 08:48 Polyethylene Glycol 3350 17 Gm Powd.Pack PO 17 gm DAILY WILLARD Administration Potassium Chloride 40 meq 02/22/20 23:00 02/24/20 08:48 Potassium Chloride Er 20 Meq Tab.Er PO 40 meq BID WILLARD Administration Senna/Docusate Sodium 1 each 02/23/20 21:00 02/24/20 08:48 Sennosides-Docusate Sodium 1 Each Tab PO 1 each BID WILLARD Administration Sodium Biphosphate/Sodium Phosphate 133 ml 02/24/20 21:00 Na Phos,M-B/Na Phos,Di-Ba 133 Ml Enema RECTAL 02/24/20 21:01 ONCE ONE Spironolactone 12.5 mg 02/23/20 09:00 02/24/20 08:48 Spironolactone 25 Mg Tab PO 12.5 mg DAILY WILLARD Administration Intake and Output 02/24/20 02/24/20 02/24/20 06:59 14:59 22:59 Other: # Voids 4 02/24/20 13:00 02/23/20 06:48
[2020-02-24 18:57] LABS: African American GFR (CKD) 30.2 (60.0-200.0); Anion Gap 12.6 mmol/L (4.00-12.00); BUN/Creat Ratio 21.3 Ratio (12.00-20.00); Calcium 9.3 mg/dL (8.7-10.3); Carbon Dioxide 26.4 mmol/L (21.6-31.8); Magnesium 2.2 mg/dL (1.5-2.4); Potassium 4.3 mmol/L (3.5-5.5)
[2020-02-24] MEDS: MONTELUKAST 10 MG TAB PO SCH (20:29)
[2020-02-24] MEDS: BUMETANIDE 0.25 MG/ML 10 ML VIAL IV SCH (21:57)
[2020-02-25] MEDS: LEVOTHYROXINE 75 MCG TAB PO SCH (05:24)
[2020-02-25] MEDS: ACETAMINOPHEN TAB 500 MG TAB PO PRN ×2 (05:24→19:52)
[2020-02-25 05:39] LABS: Appearance,Urine Clear (Clear); Bilirubin,Urine Negative (Negative); Blood,Urine Negative (Negative); Color,Urine Yellow; Glucose,Urine (UA) Negative (Negative); Ketones,Urine Negative (Negative); Leukocyte Esterase,Urine Negative (Negative); Nitrite,Urine Negative (Negative); PH, Urine 6.5 (5.0-8.0); Protein,Urine Negative (Negative); Urobilinogen,Urine <2.0 mg/dL (<2.0)
[2020-02-25 06:06] LABS: Anisocytosis Slight; Basophils # (A) 0.1 k/uL (0-0.2); Basophils % (A) 1 %; Eosinophils # (A) 0.2 k/uL (0-0.7); Eosinophils % (A) 1 %; HCT 36.7 % (39.0-53.0); HGB 11.2 gm/dL (13.0-17.5); Hypochromasia Slight; Lymphocytes # (A) 2.3 k/uL (1.0-4.8); Lymphocytes % (A) 19 %; MCHC 30.4 g/dL (31.0-37.0); MCV 95.4 fL (80.0-100.0); Mean Platelet Volume 7.7; Monocytes # (A) 0.9 k/uL (0-1.0); Monocytes % (A) 8 %; Neutrophils # (A) 8.4 k/uL (1.3-7.7); Neutrophils % (A) 69 %; Platelet Count 204 k/uL (150-450); RBC 3.85 m/uL (4.30-5.90); RDW 16.4 % (11.5-15.5); WBC 12.1 k/uL (3.8-10.6)
[2020-02-25] MEDS: POTASSIUM CHLORIDE ER 20 MEQ TAB.ER PO SCH ×2 (08:42→19:53)
[2020-02-25] MEDS: buPROPion SR 100 MG TABLET.ER PO SCH ×2 (08:42→19:55)
[2020-02-25] MEDS: LORATADINE 10 MG TAB PO SCH (08:42)
[2020-02-25] MEDS: APIXABAN 5 MG TAB PO SCH ×2 (08:42→19:53)
[2020-02-25] MEDS: allopurinoL 100 MG TAB PO SCH (08:42)
[2020-02-25] MEDS: polyethylene glycoL 3350 17 GM POWD.PACK PO SCH (08:42)
[2020-02-25] MEDS: SENNOSIDES-DOCUSATE SODIUM 1 EACH TAB PO SCH ×2 (08:42→19:54)
[2020-02-25] MEDS: carvediloL 3.125 MG TAB PO SCH ×2 (08:42→17:28)
[2020-02-25] MEDS: AMIODARONE 200 MG TAB PO SCH (08:42)
[2020-02-25] MEDS: MAGNESIUM OXIDE 400 MG TAB PO SCH (08:43)
[2020-02-25] MEDS: SPIRONOLACTONE 25 MG TAB PO SCH (08:43)
[2020-02-25] MEDS: BUMETANIDE 0.25 MG/ML 10 ML VIAL IV SCH ×2 (08:43→21:15)
[2020-02-25 09:55] LABS: African American GFR (CKD) 30.2 (60.0-200.0); Anion Gap 12.9 mmol/L (4.00-12.00); BUN/Creat Ratio 22.61 Ratio (12.00-20.00); Calcium 9.3 mg/dL (8.7-10.3); Carbon Dioxide 27.1 mmol/L (21.6-31.8); Magnesium 2.2 mg/dL (1.5-2.4)
--- NOTE | 2020-02-25 10:57 | XR ---
EXAMINATION TYPE: XR chest 2V DATE OF EXAM: 02/25/2020 COMPARISON: 02/23/2020 INDICATION: Pacemaker leads TECHNIQUE: Frontal and lateral views of the chest are obtained. FINDINGS: The heart size is mildly prominent. The pulmonary vasculature is normal. Bibasilar infiltrates. IMPRESSION: 1. Bibasilar infiltrates worsening from comparison. Findings can be compatible with atypical pneumoni a. Follow-up is recommended.
--- NOTE | 2020-02-25 14:43 | P.PN ---
Subjective Progress Note Date: 02/25/20 Pt seen by cardiology yesterday, appreciate recs. Polyvalvular disease and acute on chronic diastolic heart failure, treated with IV diuretics. Pt is still extremely dyspneic at rest and with minimal exertion, borderline oxygenation on room air. Objective - Vital Signs Vital signs: Vital Signs Temp 98.4 F 02/25/20 14:00 Pulse 80 02/25/20 14:00 Resp 20 02/25/20 14:00 BP 116/57 02/25/20 14:00 Pulse Ox 99 02/25/20 14:00 Intake & Output 02/24/20 02/25/20 02/25/20 18:59 06:59 18:59 Intake Total 300 Output Total 0 600 Balance 300 -600 Intake: Oral 300 Output: Urine 0 600 Other: Voiding Method Toilet # Bowel Movements 1 - Labs CBC & Chem 7: 02/25/20 05:39 02/25/20 05:39 Labs: Abnormal Lab Results - Last 24 Hours (Table) 02/24/20 02/25/20 02/25/20 Range/Units 13:00 05:39 05:39 WBC 12.1 H (3.8-10.6) k/uL RBC 3.85 L (4.30-5.90) m/uL Hgb 11.2 L (13.0-17.5) gm/dL Hct 36.7 L (39.0-53.0) % MCHC 30.4 L (31.0-37.0) g/dL RDW 16.4 H (11.5-15.5) % Neutrophils # 8.4 H (1.3-7.7) k/uL Anion Gap 12.60 H 12.90 H (4.00-12.00) mmol/L BUN 49.0 H 52.0 H (9.0-27.0) mg/dL Creatinine 2.3 H 2.3 H (0.6-1.5) mg/dL Est GFR (CKD-EPI)AfAm 30.2 L 30.2 L (60.0-200.0) Est GFR (CKD-EPI)NonAf 26.0 L 26.0 L (60.0-200.0) BUN/Creatinine Ratio 21.30 H 22.61 H (12.00-20.00) Ratio Glucose 117 H (70-110) mg/dL Assessment and Plan Assessment: 1. Acute on chronic diastolic congestive heart failure exacerbation 2. CK D stage III 3. Atrial flutter 4. Biventricular pacemaker, V paced 5. CHICA on CPAP 6. Aortic stenosis status post TAVR in 2011 7. Hypothyroidism 79-year-old man with medical history of heart failure with reduced ejection fraction status post biventricular pacemaker, aortic stenosis status post total aortic valve replacement, atrial flutter status post ablation, CHICA on CPAP, CK D stage III, hypothyroidism presented with increasing dyspnea on exertion since his ablation on 01/11 as well as bounding JVD on physical exam, congested chest x-ray, elevated BNP concerning for heart failure exacerbation. Plan: - admit to telemetry - I/Os, daily weights - rec'd lasix 40mg IV once in ER, continue bumex 2mg BID - repeat echocardiogram = polyvalvular disease, diastolic dysfunction - pulmonary consulted by ER - cardiology consult placed - continue home amiodarone, apixaban, coreg - home CPAP at night - continue levothyroxine - bowel regimen: brigitte-colace BID + miralax daily + bisacodyl PRN + enema PRN Full Code
--- NOTE | 2020-02-25 15:17 | P.PN ---
Subjective HISTORY OF PRESENTING ILLNESS Patient is a pleasant 79-year-old male with a history of atrial fibrillation, atrial flutter, chronic diastolic heart failure, status post biventricular permanent pacemaker, recent atrial fibrillation ablation January 02, 2020, hypertension, hyperlipidemia, chronic kidney disease, sleep apnea, hypothyroidism, severe aortic stenosis status post aortic valve replacement in 2011 who presents for workup of his shortness breath and bilateral flank pain. Patient is somewhat of a poor historian and some of history was supplied by calling his who keeps more detailed records. Patient admits initially he had an aortic valve replacement in [address] Diaz at [facility] and then also had a pacemaker in 2013. The does not recall why he needed the pacemaker. During workup for his aortic valve replacement he did have a heart catheterization in 2011 which showed a chronically occluded circu mflex however no bypass was performed. He initially did follow with Dr. Patel however in [address] Mills in [facility]. Patient had been worked up for dyspnea and a JC was performed apparently in and October 2019 which the believes was fairly normal. He then was seen with recommendations for an ablation which she believes was a pulmonary vein ablation for his atrial fibrillation. He had this performed with Dr. Farley January 02, 2020 at [facility] in [place]. Unfortunately since that time patient has felt much worse with shortness of breath with minimal activity such as walking the bathroom. Patient followed up with cardiology and admits they were fairly frustrated as they were told that it was not his heart and to follow-up in 6 months. This was apparently with Dr Harman in [facility]. The and also stated that he has been having flank pain which has mainly started since the ablation. Unfortunately it appears that the ablation was unsuccessful with patient currently been in atrial flutter. There is a possibility that the ablation was month to be an AV paris ablation however does not recall this. Patient does have chronic kidney disease. There is documentation from office records of a creatinine of 1.5 in 2011. Patient states he has chronic lower extremity edema which has been going on for months to years. Patient denies any chest pain or pressure. Patient's also admits that he has been having frequent pulsations in his neck. 02/25/2020 Patient seen and examined. Patient sleeping on his side with his bed propped up at approximately a 30 angle. Patient still with some tachypnea and shortness breath at rest however no significant hypoxia. Patient denies any chest pain or pressure. TE2 was contacted with only the ability to perform a remote interrogation however this revealed no significant arrhythmias and confirmed a biventricular pacemaker. Patient has received Bumex 2 mg IV twice a day as well as the Zaroxolyn however does not admit to a large amount of diuresis. Records were requested however hospital unable to fax over the weekend. REVIEW OF SYSTEMS At the time of my exam: CONSTITUTIONAL: Denies fever or chills. CARDIOVASCULAR: Denies chest pain, +shortness of breath, +orthopnea, no PND or palpitations. RESPIRATORY: Denies cough. GASTROINTESTINAL: +abdominal pain, no diarrhea, constipation, nausea or vomiting. MUSCULOSKELETAL: Denies myalgias. NEUROLOGIC: Denies numbness, tingling or weakness. ENDOCRINE: + fatigue, no weight change, polydipsia or polyurina. GENITOURINARY: Denies burning, hematuria or urgency with micturation. HEMATOLOGIC: Denies history of anemia or bleeding. PHYSICAL EXAMINATION Blood pressure 116/57, pulse 80, 99% on room air CONSTITUTIONAL: No apparent distress. Chronically ill appearing, tachypnic at 24 RR on exam HEENT: Head is normocephalic. Pupils are equal, round. Sclerae anicteric. Mucous membranes of the mouth are moist. + extensive JVD while sitting upright. No carotid bruit. CHEST EXAMINATION: Lungs are clear to auscultation. Mild crackles at bases, No chest wall tenderness is noted on palpation or with deep breathing. + RV heave, + pulsations of the abdomen HEART EXAMINATION: Regular rate and rhythm. S1, S2 heard. +3/6 systolic murmur, 2/4 diastolic murmur, no gallops or rub. ABDOMEN: Soft, nontender. Positive bowel sounds. EXTREMITIES: 2+ peripheral pulses, 2+ lower extremity edema and no calf tenderne ss. NEUROLOGIC EXAMINATION: Patient is awake, alert and oriented x3. ASSESSMENT 1. Acute on chronic diastolic heart failure 2. History of severe aortic stenosis status post surgical aortic valve r eplacement 2011 3. History of coronary artery disease with ECHO VASCULAR TECH of circumflex treated medically 4. Typical atrial flutter 5. Paroxysmal atrial fibrillation, currently atrial flutter. Status post qu estionable atrial fibrillation ablation December 2019 6. Abdominal pain, flank pain 7. Jugular venous distention and pulsations. Questionable related to tricuspid regurgitation versus pacemaker syndrome 8. Moderate to severe aortic insufficiency 9. Moderate to severe mitral regurgitation 10. Moderate to severe tricuspid regurgitation 11. Pulmonary hypertension with RVSP of 43 12. Status post biventricular pacemaker 13. Fatigue PLAN Discussed with again over the phone and patient. Awaiting medical records from [facility]. Continue with diuresis with Bumex 2 mg IV twice a day as well as Zaroxolyn. 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 Discussed both with and patient regarding further workup including possible right heart catheterization and JC tomorrow or Wednesday. Keep patient nothing by mouth after midnight tonight for possible JC or right heart catheterization tomorrow, pending medical records being faxed over and review. Patient remains class IV heart failure symptoms and continue with inpatient diuresis. Objective - Vital Signs Vital signs: Vital Signs Temp 98.4 F 02/25/20 14:00 Pulse 80 02/25/20 14:00 Resp 20 02/25/20 14:00 BP 116/57 02/25/20 14:00 Pulse Ox 99 02/25/20 14:00 Intake & Output 02/24/20 02/25/20 02/25/20 18:59 06:59 18:59 Intake Total 300 Output Total 0 600 Balance 300 -600 Intake: Oral 300 Output: Urine 0 600 Other: Voiding Method Toilet # Bowel Movements 1 - Labs CBC & Chem 7: 02/25/20 05:39 02/25/20 05:39 Labs: Abnormal Lab Results - Last 24 Hours (Table) 02/24/20 02/25/20 02/25/20 Range/Units 13:00 05:39 05:39 WBC 12.1 H (3.8-10.6) k/uL RBC 3.85 L (4.30-5.90) m/uL Hgb 11.2 L (13.0-17.5) gm/dL Hct 36.7 L (39.0-53.0) % MCHC 30.4 L (31.0-37.0) g/dL RDW 16.4 H (11.5-15.5) % Neutrophils # 8.4 H (1.3-7.7) k/uL Anion Gap 12.60 H 12.90 H (4.00-12.00) mmol/L BUN 49.0 H 52.0 H (9.0-27.0) mg/dL Creatinine 2.3 H 2.3 H (0.6-1.5) mg/dL Est GFR (CKD-EPI)AfAm 30.2 L 30.2 L (60.0-200.0) Est GFR (CKD-EPI)NonAf 26.0 L 26.0 L (60.0-200.0) BUN/Creatinine Ratio 21.30 H 22.61 H (12.00-20.00) Ratio Glucose 117 H (70-110) mg/dL
[2020-02-25] MEDS: metOLazone 5 MG TAB PO SCH (17:28)
[2020-02-25] MEDS: MONTELUKAST 10 MG TAB PO SCH (19:53)
[2020-02-26] MEDS: AMIODARONE 200 MG TAB PO SCH (07:06)
[2020-02-26] MEDS: LEVOTHYROXINE 75 MCG TAB PO SCH (07:06)
[2020-02-26] MEDS: MAGNESIUM OXIDE 400 MG TAB PO SCH (07:06)
[2020-02-26] MEDS: allopurinoL 100 MG TAB PO SCH (07:06)
[2020-02-26] MEDS: LORATADINE 10 MG TAB PO SCH (07:06)
[2020-02-26 07:58] LABS: Anisocytosis Slight; Basophils # (A) 0.1 k/uL (0-0.2); Basophils % (A) 0 %; Eosinophils # (A) 0.1 k/uL (0-0.7); Eosinophils % (A) 1 %; HCT 35.5 % (39.0-53.0); HGB 11.6 gm/dL (13.0-17.5); Hypochromasia Slight; Lymphocytes # (A) 2.2 k/uL (1.0-4.8); Lymphocytes % (A) 17 %; MCHC 32.7 g/dL (31.0-37.0); MCV 94.8 fL (80.0-100.0); Mean Platelet Volume 7.8; Monocytes # (A) 0.9 k/uL (0-1.0); Monocytes % (A) 7 %; Neutrophils # (A) 9.4 k/uL (1.3-7.7); Neutrophils % (A) 72 %; Platelet Count 187 k/uL (150-450); RBC 3.74 m/uL (4.30-5.90); RDW 16.2 % (11.5-15.5); WBC 13.1 k/uL (3.8-10.6)
[2020-02-26 08:12] LABS: Calcium 9.5 mg/dL (8.4-10.2); Magnesium 2.4 mg/dL (1.6-2.3); Potassium 4.8 mmol/L (3.5-5.1)
[2020-02-26] MEDS: carvediloL 3.125 MG TAB PO SCH ×2 (09:43→17:05)
[2020-02-26] MEDS: APIXABAN 5 MG TAB PO SCH ×2 (09:43→20:24)
[2020-02-26] MEDS: polyethylene glycoL 3350 17 GM POWD.PACK PO SCH (10:29)
[2020-02-26] MEDS: POTASSIUM CHLORIDE ER 20 MEQ TAB.ER PO SCH ×2 (10:29→20:24)
[2020-02-26] MEDS: SENNOSIDES-DOCUSATE SODIUM 1 EACH TAB PO SCH ×2 (10:29→20:24)
[2020-02-26] MEDS ORDERED: PROPOFOL 10 MG/ML 20 ML VIAL IV ONE (10:35)
[2020-02-26] MEDS ORDERED: LACTATED RINGERS 1,000 ML IV ONE ×2 (10:45)
--- NOTE | 2020-02-26 11:44 | P.TEE ---
Description of Procedure(s): Procedure performed: Transesophageal Echocardiogram with color flow doppler, pulsed wave doppler and continuous wave doppler, synchronized cardioversion Sedation: Sedation was given by anesthesia. See anesthesia note for full details. Complications: none Indications: Moderate to severe aortic insufficiency, moderate to severe mitral regurgitation, acute on chronic diastolic heart failure History: Patient is a pleasant 79-year-old male with history of atrial fibrillation, atrial flutter, chronic diastolic heart failure, status post biventricular permanent pacemaker, recent atrial fibrillation ablation 01/02/2020, hypertension, hyperlipidemia, chronic kidney disease, obstructive sleep apnea, history of severe aortic stenosis status post aortic valve replacement 2011, and coronary artery disease with a FUR REPAIR INSPECTOR of circumflex treated medically. He had previously been treated at [facility] and unfortunately has been having increased dyspnea with minimal activity and at rest for approximately the last 1 month. He had a surface echocardiogram performed which showed somewhat poorly visualized bioprosthetic aortic valve however moderate to severe aortic insufficiency, moderate to severe mitral regurgitation and moderate to severe tricuspid regurgitation. Patient was additionally found to be in atrial flutter/atrial tachycardia. Therefore recommendations were for a JC to further evaluate valves as well as cardioversion. PROCEDURE: After the risks, benefits and alternatives of the above mentioned procedure was explained in detail with the patient, informed consent was obtained. Patient was brought to the lab in a fasting state. Patient was given IV Versed and Fentanyl for sedation. The throat was sprayed with Hurricane to anesthetize the throat. A lubricated Omni probe was then introduced into the esophagus and stomach and multiple views were obtained. 2D echo with color flow doppler, pulsed wave doppler and continuous wave doppler was utilized. Agitated saline bubbles were injected to assess for any intra-atrial shunt. The probe was then removed. Patient tolerated the procedure well. Patient was transferred to the post procedure area in stable and satisfactory condition. FINDINGS: 1. There is a bioprosthetic aortic valve which appears to be somewhat small for patient's annulus. There is severe aortic insufficiency with descending aortic holo-diastolic flow reversal. 2. The mitral valve appears be normal with severe central mitral regurgitation. PISA estimated EROA 0.56cm2. 3 pulmonary veins were interrogated with PW showing holosystolic flow reversal consistent with severe mitral regurgitation. The pulmonary veins appear dilated. 3. Tricuspid valve appears structurally normal. There is severe tricuspid regurgitation. There is equalization of the systolic and diastolic color Doppler jet consistent with severe tricuspid regurgitation. There is a RV pacemaker lead through the tricuspid valve. 4. There is a small intra-atrial shunt by bubble study only without significant flow noted by color Doppler. Likely remnant of prior pulmonary vein ablation. 5. Left atrial appendage is free of clot. 6. Left ventricular size and function appear to be low normal with ejection fraction 50-55%.
--- NOTE | 2020-02-26 12:18 | P.PN ---
Subjective Progress Note Date: 02/26/20 HISTORY OF PRESENT ILLNESS: Patient examined this morning at the bedside. Patient denies chest pain or pressure. He reports shortness of breath. He remains on IV Bumex and Zaroxolyn. Creatinine 2.83. PHYSICAL EXAM: VITAL SIGNS: Reviewed. GENERAL: Well-developed in no acute distress. NECK: Supple. + JVD. No thyromegaly LUNGS: Respirations even but mildly labored. Lungs diminished. HEART: Irregular rate and rhythm. S1 and S2 heard. EXTREMITIES: Normal range of motion. No clubbing or cyanosis. Peripheral pulses intact. 2+ bilateral lower extremity edema ASSESSMENT: 1. Acute on chronic diastolic heart failure 2. History of severe aortic stenosis status post surgical aortic valve replacement 2011 3. 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 Typical atrial flutter 5. Paroxysmal atrial fibrillation, currently atrial flutter. Status post questionable atrial fibrillation ablation December 2019 6. Abdominal pain, flank pain 7. Jugular venous distention and pulsations. Questionable related to tricuspid regurgitation versus pacemaker syndrome 8. Moderate to severe aortic insufficiency 9. Moderate to severe mitral regurgitation 10. Moderate to severe tricuspid regurgitation 11. Pulmonary hypertension with RVSP of 43 12. Status post biventricular pacemaker 13. Fatigue PLAN: Continue current cardiac medications Patient to undergo JC with cardioversion today with Dr. Reynolds Possible right heart cath tomorrow Further recommendations pending patient course Nurse practitioner note has been reviewed by physician. Signing provider agrees with the documented findings, assessment, and plan of care. Objective - Vital Signs Vital signs: Vital Signs Temp 98 F 02/26/20 11:12 Pulse 85 02/26/20 11:55 Resp 18 02/26/20 11:55 BP 123/62 02/26/20 11:55 Pulse Ox 97 02/26/20 11:55 Intake & Output 02/25/20 02/26/20 02/26/20 18:59 06:59 18:59 Intake Total 540 200 Output Total 600 0 0 Balance -60 0 200 Weight 117.8 kg Intake: IV 200 Oral 540 0 Output: Urine 600 Stool 0 0 Other: Voiding Method Toilet Toilet # Voids 2 2 # Bowel Movements 1 - Labs CBC & Chem 7: 02/26/20 07:04 02/26/20 07:04 Labs: Abnormal Lab Results - Last 24 Hours (Table) 02/26/20 02/26/20 Range/Units 07:04 07:04 WBC 13.1 H (3.8-10.6) k/uL RBC 3.74 L (4.30-5.90) m/uL Hgb 11.6 L (13.0-17.5) gm/dL Hct 35.5 L (39.0-53.0) % RDW 16.2 H (11.5-15.5) % Neutrophils # 9.4 H (1.3-7.7) k/uL Sodium 135 L (137-145) mmol/L BUN 59 H (9-20) mg/dL Creatinine 2.83 H (0.66-1.25) mg/dL Magnesium 2.4 H (1.6-2.3) mg/dL
[2020-02-26 12:40] LABS: T4, Free (Free Thyroxine) 1.97 ng/dL (0.78-2.19)
[2020-02-26] MEDS: buPROPion SR 100 MG TABLET.ER PO SCH ×2 (12:53→20:24)
[2020-02-26] MEDS: SPIRONOLACTONE 25 MG TAB PO SCH (12:55)
[2020-02-26] MEDS: metOLazone 5 MG TAB PO SCH (12:55)
[2020-02-26] MEDS: BUMETANIDE 0.25 MG/ML 10 ML VIAL IV SCH ×2 (12:55→20:54)
[2020-02-26] MEDS ORDERED: ALPRAZolam 0.25 MG TAB PO PRN (13:07)
[2020-02-26] MEDS ORDERED: NITROGLYCERIN SL TABS 0.4 MG TAB SUBLINGUAL PRN (13:07)
--- NOTE | 2020-02-26 16:49 | P.PN ---
Subjective Progress Note Date: 02/26/20 Patient is feeling well today. No acute events overnight reported by nursing staff. Objective - Vital Signs Vital signs: Vital Signs Temp 97.4 F L 02/26/20 15:40 Pulse 85 02/26/20 15:40 Resp 18 02/26/20 15:40 BP 121/59 02/26/20 15:40 Pulse Ox 94 L 02/26/20 15:40 Intake & Output 02/25/20 02/26/20 02/26/20 18:59 06:59 18:59 Intake Total 540 450 Output Total 600 0 475 Balance -60 0 -25 Weight 117.8 kg Intake: IV 200 Oral 540 250 Output: Urine 600 475 Stool 0 0 Other: Voiding Method Toilet Toilet # Voids 2 2 1 # Bowel Movements 1 - Exam General: The patient is awake and alert, in no distress Eye: there is normal conjunctiva bilaterally. Neck: The neck is supple, there is + JVD. Cardiovascular: Normal S1-S2, no S3-S4, no murmurs. Respiratory: Lungs clear to auscultation bilaterally Gastrointestinal: Abdomen is soft, nontender Musculoskeletal: There is +1-2 pedal edema. Neurological:. Speech is normal. Skin: Skin is warm and dry - Labs CBC & Chem 7: 02/26/20 07:04 02/26/20 07:04 Labs: Abnormal Lab Results - Last 24 Hours (Table) 02/26/20 02/26/20 02/26/20 Range/Units 07:04 07:04 07:04 WBC 13.1 H (3.8-10.6) k/uL RBC 3.74 L (4.30-5.90) m/uL Hgb 11.6 L (13.0-17.5) gm/dL Hct 35.5 L (39.0-53.0) % RDW 16.2 H (11.5-15.5) % Neutrophils # 9.4 H (1.3-7.7) k/uL Sodium 135 L (137-145) mmol/L BUN 59 H (9-20) mg/dL Creatinine 2.83 H (0.66-1.25) mg/dL Magnesium 2.4 H (1.6-2.3) mg/dL TSH 16.800 H (0.465-4.680) mIU/L Assessment and Plan Assessment: 79-year-old man with medical history noted below who presented with increasing dyspnea on exertion since his ablation on 01/11 as well as bounding JVD on physical exam, congested chest x-ray, elevated BNP concerning for heart failure exacerbation. Patient was evaluated in the ER and admitted to the hospital for further management of his medical problems noted below. 1. Acute on chronic diastolic congestive heart failure exacerbation: On diuresis with IV bumetanide as ordered by cardiology. Continue daily weights. Strict I's and O's. 2. CKD stage III: We will continue to monitor creatinine closely 3. Atrial flutter: Status post JC guided cardioversion on 02/25. Anticoagulation with Eliquis 4. Biventricular pacemaker, V paced 5. CHICA on CPAP 6. Aortic stenosis status post TAVR in 2011 7. Hypothyroidism 8. Moderate to severe aortic insufficiency and mitral regurgitation. Altered to severe tricuspid regurgitation Plan: - admit to telemetry - I/Os, daily weights - repeat echocardiogram = polyvalvular disease, diastolic dysfunction - home CPAP at night - continue levothyroxine - bowel regimen: brigitte-colace BID + miralax daily + bisacodyl PRN + enema PRN
[2020-02-26] MEDS ORDERED: SODIUM CHLORIDE 0.9% 1,000 ML in EMPTY BAG 1 BAG IV ONE (20:00)
[2020-02-26] MEDS: ALPRAZolam 0.5 MG TAB PO PRN (20:24)
[2020-02-26] MEDS: MONTELUKAST 10 MG TAB PO SCH (20:24)
[2020-02-27] MEDS: allopurinoL 100 MG TAB PO SCH (06:44)
[2020-02-27] MEDS: LEVOTHYROXINE 75 MCG TAB PO SCH (06:44)
[2020-02-27] MEDS: AMIODARONE 200 MG TAB PO SCH (06:44)
[2020-02-27] MEDS: POTASSIUM CHLORIDE ER 20 MEQ TAB.ER PO SCH ×2 (06:45→20:51)
[2020-02-27] MEDS: carvediloL 3.125 MG TAB PO SCH ×2 (06:45→17:06)
[2020-02-27] MEDS: APIXABAN 5 MG TAB PO SCH ×2 (06:45→20:51)
[2020-02-27] MEDS: MAGNESIUM OXIDE 400 MG TAB PO SCH (06:45)
[2020-02-27] MEDS: LORATADINE 10 MG TAB PO SCH (06:52)
[2020-02-27] MEDS: buPROPion SR 100 MG TABLET.ER PO SCH ×2 (06:52→20:51)
[2020-02-27] MEDS ORDERED: ATORVASTATIN 80 MG TAB PO ONE (07:00)
[2020-02-27] MEDS ORDERED: ASPIRIN 325 MG TAB PO ONE (07:00)
[2020-02-27 09:34] LABS: Anisocytosis Slight; Basophils # (A) 0.1 k/uL (0-0.2); Basophils % (A) 1 %; Eosinophils # (A) 0.1 k/uL (0-0.7); Eosinophils % (A) 1 %; HCT 32.5 % (39.0-53.0); HGB 10.8 gm/dL (13.0-17.5); Hypochromasia Slight; Lymphocytes # (A) 1.8 k/uL (1.0-4.8); Lymphocytes % (A) 15 %; MCH 31.1 pg (25.0-35.0); MCHC 33.2 g/dL (31.0-37.0); MCV 93.7 fL (80.0-100.0); Mean Platelet Volume 7.8; Monocytes # (A) 0.8 k/uL (0-1.0); Monocytes % (A) 7 %; Neutrophils % (A) 74 %; Platelet Count 175 k/uL (150-450); RBC 3.47 m/uL (4.30-5.90); RDW 16.3 % (11.5-15.5); WBC 12.1 k/uL (3.8-10.6)
[2020-02-27 09:44] LABS: Magnesium 2.2 mg/dL (1.6-2.3); Potassium 3.5 mmol/L (3.5-5.1)
[2020-02-27] MEDS ORDERED: LIDOCAINE 1% INJ 10MG/ML (20 ML MDV) ONE (09:57)
[2020-02-27] MEDS ORDERED: SODIUM CHLORIDE 0.9% 500 ML 500 ML IV ONE (10:17)
[2020-02-27] MEDS ORDERED: LIDOCAINE 1% INJ 10MG/ML (20 ML MDV) SQ ONE (10:44)
[2020-02-27] MEDS ORDERED: MIDAZOLAM 2 MG/2 ML VIAL IV ONE (10:44)
[2020-02-27] MEDS ORDERED: fentaNYL (PF) 50 MCG/ML 2 ML AMP ONE (10:47)
[2020-02-27 11:18] LABS: O2 Sat Blood Gas 45.5 %
[2020-02-27 11:20] LABS: O2 Sat Blood Gas 44.3 %
[2020-02-27] MEDS: SENNOSIDES-DOCUSATE SODIUM 1 EACH TAB PO SCH ×2 (12:38→20:51)
[2020-02-27] MEDS: SPIRONOLACTONE 25 MG TAB PO SCH (12:38)
[2020-02-27] MEDS: BUMETANIDE 0.25 MG/ML 10 ML VIAL IV SCH ×2 (12:38→20:51)
[2020-02-27] MEDS: metOLazone 5 MG TAB PO SCH (12:38)
[2020-02-27] MEDS: polyethylene glycoL 3350 17 GM POWD.PACK PO SCH (12:39)
[2020-02-27] MEDS ORDERED: RX INFO: IV CONTRAST WAS GIVEN 1 EACH MISC MISCELLANE PRN (13:13)
--- NOTE | 2020-02-27 13:13 | P.CARDCATH ---
Description of Procedure: PROCEDURES PERFORMED: Right heart catheterization, intracardiac echocardiography, ultrasound-guided venous access INDICATION: Acute on chronic diastolic heart failure, severe aortic insufficiency, severe mitral regurgitation, severe tricuspid regurgitation HISTORY: Patient is a pleasant 79-year-old male with history of atrial fibri llation, atrial flutter, chronic diastolic heart failure, status post biventricular permanent pacemaker, recent atrial fibrillation ablation 01/02/2020, hypertension, hyperlipidemia, chronic kidney disease, obstructive sleep apnea, history of severe aortic stenosis status post aortic valve replacement 2011, and coronary artery disease with a DENTAL SECRETARY of circumflex treated medically. He had previously been treated at [facility] and unfortunately has been having increased dyspnea with minimal activity and at rest for approximately the last 1 month. He had a JC performed yesterday which showed severe aortic insufficiency, severe mitral regurgitation and severe tricuspid regurgitation, however the aortic insufficiency jet was not fully identified and there was possibility of paravalvular leak. CONSENT:I have discussed the risks, benefits and alternative therapies for the above-mentioned procedure and for both sedation/analgesia as well as necessary blood product administration, if indicated, as they pertain to this patient. The patient has indicated understanding and acceptance of the risks and procedures discussed. PROCEDURE: After the risks, benefits and alternatives of the above mentioned procedure explained in detail with the patient, informed consent was obtained. Patient was taken to the catheterization lab and prepped and draped in usual fashion. 1% lidocaine was used to anesthetize the right femoral area. Using modified Seldinger technique and micropuncture technique with ultrasound guidance, an 8-Greek sheath was placed in the right femoral vein. A 7-Greek [place] catheter was advanced into the right atrium, right ventricle, pulmonary artery and pulmonary Wedge position and right heart catheterization was performed with pressure measurements obtained as well as oxygen saturations from the pulmonary artery and right atrium. Patient's pulse ox was used for arterial oxygen saturation. Next an 8Fr ICE catheter was advanced through the sheath into the right atrium and itracardiac echocardiography was performed with color doppler. Conscious Sedation: Patient was monitored under the direct supervision of vision of myself for conscious sedation using Versed and fentanyl for a total duration of 42 minutes RIGHT HEART CATHERTIZATION: RA: 9mm Hg with a V wave of 16 mmHg RV: 46/2, RVEDP 11 mmHg PA: 56/17 (30) mmHg PCWP: 23 mmHg with a V wave of 36mmHg PA O2 saturation: 46% RA O2 saturation: 44% Arterial oxygen saturation (by pulse ox off and supplemental oxygen): 91% Cardiac output: 4.37 L/min Cardiac index: 1.8 L/min/m2 Intracardiac Echo findings: Images were somewhat limited secondary to patient becoming restless. LV function 50% Severe TR Severe aortic insufficiency with poor visualization of source of AI jet. Cannot exclude paravalular leak. FINAL IMPRESSION: 1. Mildly elevated left and right sided pressures 2. Decreased cardiac output, cardiac index consistent with cardiogenic shock 3. Severe aortic insufficiency, severe mitral regurgitaion, severe tricuspid regurgitation PLAN: 1. Evaluation for repair/ replacement for polyvalvular disease. 2. May consider repeat JC to exclude aortic paravalvular leak as regurgitant jet not well visualized on prior JC or ICE.
--- NOTE | 2020-02-27 14:23 | P.PN ---
Subjective Progress Note Date: 02/27/20 Patient is doing well today. He denies any shortness of breath. No acute events overnight reported by nursing staff. Objective - Vital Signs Vital signs: Vital Signs Temp 97.4 F L 02/27/20 12:24 Pulse 81 02/27/20 13:39 Resp 22 02/27/20 13:39 BP 135/57 02/27/20 13:39 Pulse Ox 96 02/27/20 13:39 Intake & Output 02/26/20 02/27/20 02/27/20 18:59 06:59 18:59 Intake Total 450 125 Output Total 475 280 500 Balance -25 -280 -375 Weight 117.3 kg Intake: IV 200 125 Oral 250 Output: Urine 475 280 500 Stool 0 0 Other: Voiding Method Toilet Toilet # Voids 1 1 1 - Exam General: The patient is awake and alert, in no distress Eye: there is normal conjunctiva bilaterally. Neck: The neck is supple, there is + JVD. Cardiovascular: Normal S1-S2, no S3-S4, no murmurs. Respiratory: Lungs clear to auscultation bilaterally Gastrointestinal: Abdomen is soft, nontender Musculoskeletal: There is +1-2 pedal edema. Neurological:. Speech is normal. Skin: Skin is warm and dry - Labs CBC & Chem 7: 02/27/20 09:02 02/27/20 09:02 Labs: Abnormal Lab Results - Last 24 Hours (Table) 02/27/20 02/27/20 Range/Units 09:02 09:02 WBC 12.1 H (3.8-10.6) k/uL RBC 3.47 L (4.30-5.90) m/uL Hgb 10.8 L (13.0-17.5) gm/dL Hct 32.5 L (39.0-53.0) % RDW 16.3 H (11.5-15.5) % Neutrophils # 9.0 H (1.3-7.7) k/uL Sodium 135 L (137-145) mmol/L BUN 65 H (9-20) mg/dL Creatinine 2.74 H (0.66-1.25) mg/dL Assessment and Plan Assessment: 79-year-old man with medical history noted below who presented with increasing dyspnea on exertion since his ablation on 01/11 as well as bounding JVD on physical exam, congested chest x-ray, elevated BNP concerning for heart failure exacerbation. Patient was evaluated in the ER and admitted to the hospital for further management of his medical problems noted below. 1. Acute on chronic diastolic congestive heart failure exacerbation: On diuresis with IV bumetanide as ordered by cardiology. Continue daily weights. Strict I's and O's. 2. CKD stage III: We will continue to monitor creatinine closely 3. Atrial flutter: Status post JC guided cardioversion on 02/25. Anticoagulation with Eliquis 4. Biventricular pacemaker, V paced 5. CHICA on CPAP 6. Aortic stenosis status post TAVR in 2011 7. Hypothyroidism 8. Moderate to severe aortic insufficiency and mitral regurgitation. Altered to severe tricuspid regurgitation Plan: - Scheduled for heart catheterization today - I/Os, daily weights - repeat echocardiogram = polyvalvular disease, diastolic dysfunction - home CPAP at night - continue levothyroxine - bowel regimen
[2020-02-27] MEDS: MONTELUKAST 10 MG TAB PO SCH (20:51)
[2020-02-28] MEDS: allopurinoL 100 MG TAB PO SCH (06:32)
[2020-02-28] MEDS: LEVOTHYROXINE 75 MCG TAB PO SCH (06:32)
[2020-02-28] MEDS: MAGNESIUM OXIDE 400 MG TAB PO SCH (06:33)
[2020-02-28] MEDS: AMIODARONE 200 MG TAB PO SCH (06:33)
[2020-02-28] MEDS: LORATADINE 10 MG TAB PO SCH (06:33)
[2020-02-28] MEDS: BUMETANIDE 0.25 MG/ML 10 ML VIAL IV SCH ×2 (08:03→20:10)
[2020-02-28] MEDS: POTASSIUM CHLORIDE ER 20 MEQ TAB.ER PO SCH ×2 (08:03→20:08)
[2020-02-28] MEDS: metOLazone 5 MG TAB PO SCH (08:04)
[2020-02-28] MEDS: APIXABAN 5 MG TAB PO SCH ×2 (08:04→20:08)
[2020-02-28] MEDS: SENNOSIDES-DOCUSATE SODIUM 1 EACH TAB PO SCH ×2 (08:04→20:08)
[2020-02-28] MEDS: SPIRONOLACTONE 25 MG TAB PO SCH (08:04)
[2020-02-28] MEDS: carvediloL 3.125 MG TAB PO SCH ×2 (08:04→18:17)
[2020-02-28] MEDS: buPROPion SR 100 MG TABLET.ER PO SCH ×2 (08:04→20:11)
[2020-02-28] MEDS: polyethylene glycoL 3350 17 GM POWD.PACK PO SCH (08:04)
[2020-02-28] MEDS: ACETAMINOPHEN TAB 500 MG TAB PO PRN ×2 (08:07→20:08)
[2020-02-28 08:33] LABS: Calcium 8.8 mg/dL (8.4-10.2); Magnesium 2.4 mg/dL (1.6-2.3); Potassium 3.5 mmol/L (3.5-5.1)
--- NOTE | 2020-02-28 10:37 | P.PN ---
Subjective Progress Note Date: 02/28/20 Principal diagnosis: Shortness of breath secondary to heart failure Patient seen and examined at bedside. Patient states that his breathing has improved from yesterday. However, patient states that he does get exertional dyspnea. Patient denies chest pain. Patient further denies nausea, vomiting, fever, or chills. CODE STATUS was discussed with patient. Patient wants to be a DNR. Objective - Vital Signs Vital signs: Vital Signs Temp 98.1 F 02/28/20 08:00 Pulse 74 02/28/20 08:00 Resp 18 02/28/20 08:00 BP 100/61 02/28/20 08:00 Pulse Ox 98 02/28/20 08:00 Intake & Output 02/27/20 02/28/20 02/28/20 18:59 06:59 18:59 Intake Total 250 10 10 Output Total 500 210 0 Balance -250 -200 10 Weight 117.5 kg Intake: IV 125 10 10 Invasive Line 2 10 10 Oral 125 Output: Urine 500 210 Stool 0 0 0 Other: Voiding Method Toilet # Voids 1 1 - Exam General: [non toxic], [no distress], [appears at stated age] Derm: [warm], [dry] Head: [atraumatic], [normocephalic], [symmetric] Eyes: [EOMI], [no lid lag], [anicteric sclera] Mouth: [no lip lesion], [mucus membranes moist] Cardiovascular: [S1S2 reg], [no murmur], [positive posterior tibial pulse bilateral], Lungs: Diminished breath sounds bilaterally, [no rhonchi, no rales] , [no accessory muscle use] Abdominal: [soft], [ nontender to palpation], [no guarding], [no appreciable organomegaly] Ext: [no gross muscle atrophy], [+2 edema], [no contractures] Neuro: [ CN II-XI grossly intact], [no focal neuro deficits] Psych: [Alert], [oriented], [appropriate affect] - Constitutional Constitutional Comment(s): A 12 point review of systems was assessed patient was only positive for those pertinent in HPI. - Labs CBC & Chem 7: 02/27/20 09:02 02/28/20 07:24 Labs: Abnormal Lab Results - Last 24 Hours (Table) 02/28/20 Range/Units 07:24 Sodium 135 L (137-145) mmol/L Chloride 97 L (98-107) mmol/L BUN 69 H (9-20) mg/dL Creatinine 2.82 H (0.66-1.25) mg/dL Magnesium 2.4 H (1.6-2.3) mg/dL Assessment and Plan Assessment: 79-year-old man with medical history noted below who presented with increasing dyspnea on exertion since his ablation on 01/11 as well as bounding JVD on physical exam, congested chest x-ray, elevated BNP concerning for heart failure exacerbation. Patient was evaluated in the ER and admitted to the hospital for further management of his medical problems noted below. 1. Acute on chronic diastolic congestive heart failure exacerbation: - On diuresis with IV bumetanide as ordered by cardiology. Continue daily weights. Strict I's and O's. - Cardiac cath 02/27/20 showed Mildly elevated left and right sided pressures, decreased cardiac output, cardiac index consistent with cardiogenic shock, severe aortic insufficiency, severe mitral regurgitaion, severe tricuspid regurgitation -CODE STATUS was discussed the patient. Patient wants to be a DO NOT RESUSCITATE 2. Severe aortic insufficiency, severe mitral regurgitaion, severe tricuspid regurgitation -CTS consulted for further assessment 3. Aortic stenosis status post TAVR in 2011 4. Atrial flutter: Status post JC guided cardioversion on 02/25. -Anticoagulation with Eliquis 5. Biventricular pacemaker, V paced 6. Acute on CKD stage III: -We will continue to monitor creatinine closely 7. CHICA on CPAP - Continue home CPAP 8. Hypothyroidism controlled -Increase levothyroxine to 100 mcg per day 9. GI/DVT prophylaxis 10. AM labs Time with Patient: Greater than 30
[2020-02-28 13:12] VITALS: BMI 33.3
--- NOTE | 2020-02-28 15:47 | US ---
EXAMINATION TYPE: US carotid duplex BILAT DATE OF EXAM: 02/28/2020 COMPARISON: NONE CLINICAL HISTORY: Preoperative cardiac surgery. Preoperative [facility] surgery EXAM MEASUREMENTS: RIGHT: Peak Systolic Velocity (PSV) cm/sec ----- Right CCA: 74.2 ----- Right ICA: 67.7 ----- Right ECA: 84.6 ICA/CCA ratio: 0.9 RIGHT: End Diastole cm/sec ----- Right CCA: 11.9 ----- Right ICA: 0 ----- Right ECA: 10.6 LEFT: Peak Systolic Velocity (PSV) cm/sec ----- Left CCA: 82.0 ----- Left ICA: 89.9 ----- Left ECA: 65.1 ICA/CCA ratio: 1.1 LEFT: End Diastole cm/sec ----- Left CCA: 0 ----- Left ICA: 0 ----- Left ECA: 0 VERTEBRALS (direction of flow): Right Vertebral: Antegrade Left Vertebral: Antegrade Rhythm: Normal No significant stenosis seen IMPRESSION: No evidence for hemodynamically significant stenosis. Criteria for Assigning % of Stenosis / Diameter reduction (Estimation based on the indirect measurements of the internal carotid artery velocities (ICA PSV). 1. Normal (no stenosis)=ICA PSV < 125 cm/s: ratio < 2.0: ICA EDV<40 cm/s. 2. Less than 50% stenosis=ICA PSV < 125 cm/s: ratio < 2.0: ICA EDV<40 cm/s. 3. 50 to 69% stenosis=ICA PSV of 125 to 230 cm/s: ration 2.0 ? 4.0: ICA EDV 40-100 cm/s. 4. Greater than 70% stenosis to near occlusion= ICA PSV > 230 cm/s: ratio > 4.0: ICA EDV > 100 cm/s. 5. Near occlusion= ICA PSV velocities may be low or undetectable: variable ratio and ICA EDV. 6. Total occlusion=unable to detect flow.
--- NOTE | 2020-02-28 16:06 | P.PN ---
Subjective Progress Note Date: 02/28/20 HISTORY OF PRESENT ILLNESS: Patient examined this morning at the bedside. Patient is status post JC with cardioversion. He is also status post right heart cath yesterday with Dr. Reynolds revealing mildly elevated left and right sided pressures, decreased cardiac output, cardiac index consistent with cardiogenic shock, severe aortic insufficiency, severe mitral regurgitation, and severe tricuspid regurgitation. PHYSICAL EXAM: VITAL SIGNS: Reviewed. GENERAL: Well-developed in no acute distress. NECK: Supple. + JVD. No thyromegaly LUNGS: Respirations even and unlabored. Lungs diminished. HEART: Regular rate and rhythm. S1 and S2 heard. EXTREMITIES: Normal range of motion. No clubbing or cyanosis. Peripheral pulses intact. 2+ bilateral lower extremity edema ASSESSMENT: Acute on chronic diastolic heart failure History of severe aortic stenosis status post surgical aortic valve replacement 2011 History of coronary artery disease with SOIL CHECKER of circumflex treated medically Typical atrial flutter Paroxysmal atrial fibrillation, status post JC with cardioversion Status post atrial fibrillation ablation December 2019 Severe aortic insufficiency Severe mitral regurgitation Severe tricuspid regurgitation Pulmonary hypertension with RVSP of 43 Status post biventricular pacemaker Fatigue PLAN: Continue current cardiac medications Cardiothoracic surgery has been consulted for further evaluation of severe valvular disease. Await recommendations Nurse practitioner note has been reviewed by physician. Signing provider agrees with the documented findings, assessment, and plan of care. Objective - Vital Signs Vital signs: Vital Signs Temp 98 F 02/28/20 11:22 Pulse 77 02/28/20 11:22 Resp 18 02/28/20 11:22 BP 121/62 02/28/20 11:22 Pulse Ox 99 02/28/20 11:22 Intake & Output 02/27/20 02/28/20 02/28/20 18:59 06:59 18:59 Intake Total 250 10 250 Output Total 500 210 0 Balance -250 -200 250 Weight 117.5 kg 117.5 kg Intake: IV 125 10 10 Invasive Line 2 10 10 Oral 125 240 Output: Urine 500 210 Stool 0 0 0 Other: Voiding Method Toilet # Voids 1 1 - Labs CBC & Chem 7: 02/27/20 09:02 02/28/20 07:24 Labs: Abnormal Lab Results - Last 24 Hours (Table) 02/28/20 Range/Units 07:24 Sodium 135 L (137-145) mmol/L Chloride 97 L (98-107) mmol/L BUN 69 H (9-20) mg/dL Creatinine 2.82 H (0.66-1.25) mg/dL Magnesium 2.4 H (1.6-2.3) mg/dL
--- NOTE | 2020-02-28 16:28 | P.GSCN ---
History of Present Illness Consult date: 02/28/20 Reason for Consult: Moderate to severe aortic valve insufficiency, moderate to severe mitral valve regurgitation, moderate to severe tricuspid valve regurgitation. History of aortic valve replacement using a #27 trifecta bioprosthetic valve in December 2011. Requesting physician: Joey Falcon History of present illness: This is a 79-year-old gentleman who follows with Dr. Michael Rodriguez on an outpatient basis. 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 On 02/22/2020 the patient was transferred from [facility] to [facility] as the patient presented to the emergency department with complaints of exertional shortness of breath and pain to his bilateral flank feeling like needles were sticking him in his side when he was standing up. The patient denies any complaints of fever, chills, nausea, vomiting, diarrhea, presyncope, or syncope. He does report that he does have some edema to his bilateral lower extremity which is present on a daily basis. The patient also reports that he did have a fall from his truck around a month ago and landed on his back and did hit his head. He denies losing consciousness at that time and was able to get up on his own accord. The patient did not seek medical attention after his fall. Initial laboratory results showed a WBC count 12.7, hemoglobin 11.9, hematocrit 36.2, platelets 213, INR 1.3, PT 12.7, BUN 41, creatinine 2.11, lactic acid 2.7, and a Coronavirus test was completed which sh owed the virus to be not detected. A chest x-ray was completed which showed no acute pulmonary process. A computed tomography scan of his abdomen and pelvis were completed at an outside facility which the report is unavailable at this time. For further evaluation a 2-D echocardiogram was completed which showed him to have an overall left ventricular systolic function to be low normal with an ejection fraction between 50 and 55%, severely dilated left atrium rate are then 40 mm/m, bioprosthetic aortic valve with moderate to severe aortic insufficiency, moderate to severe mitral valve regurgitation, moderate to severe tricuspid valve regurgitation, and moderate pulmonary hypertension. Due to the patient's presenting symptoms and findings on the 2-D echocardiogram he was seen by cardiology and underwent a right heart catheterization, and intracardiac echocardiography which demonstrated mildly elevated left and right sided pressures, a cardiac output of 4.37 L/m and a cardiac index of 1.8 L/m/m. It also demonstrated severe aortic valve insufficiency, severe mitral valve regurgitation and severe tricuspid valve regurgitation. The patient also underwent a transesophageal echocardiogram which demonstrated a bioprosthetic aortic valve with severe aortic valve insufficiency, severe central mitral valve regurgitation with an estimated PISA 0.56 cm, severe tricuspid valve regurgi tation and a left ventricular size and function appears to be low normal with an ejection fraction between 50 and 55%. Post transesophageal echocardiogram the patient underwent a synchronized cardioversion for his atrial fibrillation and was converted excessively to normal sinus rhythm. Subsequently, due to the patient's presenting symptoms and findings on his above-mentioned studies a consult was placed to Dr. Volodymyr Sorto from cardiothoracic surgery for further evaluation and treatment recommendations. Review of Systems A 14 point review of systems was completed and was negative except as mentioned in the HPI. Past Medical History Past Medical History: Atrial Fibrillation, Coronary Artery Disease (CAD) (History of chronically occluded circumflex coronary artery), Heart Failure, Diabetes Mellitus, GERD/Reflux, Hyperlipidemia, Hypertension, Myocardial Infarction ([place]), Renal Disease, Sleep Apnea/CPAP/BIPAP, Thyroid Disorder Additional Past Medical History / Comment(s): has cpap History of Any Multi-Drug Resistant Organisms: None Reported Past Surgical History: Ablation, Cardiac Valve Replacement, Heart Catheterization, Hernia Repair, Pacemaker Additional Past Surgical History / Comment(s): aortic valve replacement 2011 using a #27 trifecta bovine tissue valve. Past Anesthesia/Blood Transfusion Reactions: No Reported Reaction Type of Cardiac Device: Permanent Pacemaker Device Placement Date:: 2013 Past Psychological History: No Psychological Hx Reported Smoking Status: Never smoker Past Alcohol Use History: Rare Past Drug Use History: None Reported - Past Family History Mother Family Medical History: Cancer Father Family Medical History: Cancer Brother(s) Family Medical History: Cancer Medications and Allergies Home Medications Medication Instructions Recorded Confirmed Type Bumetanide [BUMEX] 2 mg PO BID 06/17/18 02/22/20 History Cholecalciferol [Vitamin D3] 2,000 unit PO DAILY 06/17/18 02/22/20 History Cod Liver Oil 1 cap PO DAILY 06/17/18 02/22/20 History Fluticasone Nasal [place] [Flonase 1 spray EA NOSTRIL DAILY PRN 06/17/18 02/22/20 History Nasal [place]] Montelukast [Singulair] 10 mg PO HS 06/17/18 02/22/20 History Multivitamins, Thera [Multivitamin 1 tab PO AC-BRKFST 06/17/18 02/22/20 History (formulary)] Omeprazole [PriLOSEC] 20 mg PO AC-BID 06/17/18 02/22/20 History Potassium Chloride 40 meq PO BID 06/17/18 02/22/20 History Tamsulosin HCl [Flomax] 0.4 mg PO HS 06/17/18 02/22/20 History metOLazone [Zaroxolyn] 5 mg PO DAILY PRN 06/17/18 02/22/20 History Acetaminophen Tab [Tylenol Tab] 500 mg PO Q4H PRN 02/22/20 02/22/20 History Acetaminophen [Tylenol Arthritis] 1,300 mg PO Q8H PRN 02/22/20 02/22/20 History Allopurinol [Zyloprim] 100 mg PO AC-BRKFST 02/22/20 02/22/20 History Amiodarone [Cordarone] 200 mg PO AC-BRKFST 02/22/20 02/22/20 History Apixaban [Eliquis] 5 mg PO BID 02/22/20 02/22/20 History Docusate [Colace] 100 mg PO DAILY PRN 02/22/20 02/22/20 History Levothyroxine Sodium [Synthroid] 75 mcg PO DAILY 02/22/20 02/22/20 History Loratadine 10 mg PO AC-BRKFST 02/22/20 02/22/20 History Magnesium Oxide [Baptiste] 500 mg PO AC-BRKFST 02/22/20 02/22/20 History Spironolactone 12.5 mg PO DAILY 02/22/20 02/22/20 History Vits A,C,E/Lutein/Minerals 1 tab PO DAILY 02/22/20 02/22/20 History [Ocuvite with Lutein Tablet] buPROPion HCL [Wellbutrin SR] 100 mg PO BID 02/22/20 02/22/20 History carvediloL [Coreg] 3.125 mg PO PC-BID 02/22/20 02/22/20 History Allergies Allergy/AdvReac Type Severity Reaction Status Date / Time diphenhydramine Allergy Itching Verified 02/22/20 16:16 [From Benadryl] Surgical - Exam Vital Signs Temp Pulse Resp BP Pulse Ox 97.8 F 98 18 103/50 100 02/22/20 13:22 02/22/20 13:22 02/22/20 13:22 02/22/20 13:22 02/22/20 13:22 - General well developed, well nourished, no distress, no pain, chronically ill, obese - Eyes PERRL, normal ocular movement, no icteric - ENT normal pinna, normal nares, normal mucosa, no hearing loss, no congestion, poor [facility]itent[facility] - Neck No lymphadenopathy. Neck is supple. no masses, no bruits, trachea midline, no venous distension - Respiratory Lung sounds are essentially clear throughout. No wheezes, rhonchi or crackles. Respirations are symmetrical and nonlabored. - Cardiovascular Regular rhythm and rate. S1 and S2 present, negative for S3 or gallop. Rahman systolic murmur present. +2 edema to his bilateral lower extremities. - Abdomen Abdomen is soft, nontender and nondistended. No guarding or rigidity. Obese. No organomegaly appreciated. - Genitourinary Deferred - Rectum Deferred - Integumentary Ecchymotic areas to his left flank area. no rash, no growths, no abnormal pigmentation - Neurologic Cranial nerves II through XII intact. No focal neurological deficit. - Musculoskeletal normal gait, normal posture - Psychiatric oriented to time, oriented to person, oriented to place, speech is normal, memory intact Results - Labs 02/27/20 09:02 02/28/20 07:24 Abnormal Lab Results - Last 24 Hours (Table) 02/28/20 Range/Units 07:24 Sodium 135 L (137-145) mmol/L Chloride 97 L (98-107) mmol/L BUN 69 H (9-20) mg/dL Creatinine 2.82 H (0.66-1.25) mg/dL Magnesium 2.4 H (1.6-2.3) mg/dL Diabetes panel 02/28/20 Range/Units 07:24 Sodium 135 L (137-145) mmol/L Potassium 3.5 (3.5-5.1) mmol/L Chloride 97 L (98-107) mmol/L Carbon Dioxide 29 (22-30) mmol/L BUN 69 H (9-20) mg/dL Creatinine 2.82 H (0.66-1.25) mg/dL Glucose 98 (74-99) mg/dL Calcium 8.8 (8.4-10.2) mg/dL Calcium panel 02/28/20 Range/Units 07:24 Calcium 8.8 (8.4-10.2) mg/dL Pituitary panel 02/28/20 Range/Units 07:24 Sodium 135 L (137-145) mmol/L Potassium 3.5 (3.5-5.1) mmol/L Chloride 97 L (98-107) mmol/L Carbon Dioxide 29 (22-30) mmol/L BUN 69 H (9-20) mg/dL Creatinine 2.82 H (0.66-1.25) mg/dL Glucose 98 (74-99) mg/dL Calcium 8.8 (8.4-10.2) mg/dL Adrenal panel 02/28/20 Range/Units 07:24 Sodium 135 L (137-145) mmol/L Potassium 3.5 (3.5-5.1) mmol/L Chloride 97 L (98-107) mmol/L Carbon Dioxide 29 (22-30) mmol/L BUN 69 H (9-20) mg/dL Creatinine 2.82 H (0.66-1.25) mg/dL Glucose 98 (74-99) mg/dL Calcium 8.8 (8.4-10.2) mg/dL - Imaging Chest x-ray: report reviewed, image reviewed Assessment and Plan Assessment: 1. 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 Moderate to severe mitral valve regurgitation 3. Moderate to severe tricuspid valve regurgitation 4. Acute on chronic diastolic heart failure 5. History of severe aortic stenosis status post surgical aortic valve replacement 2011, using a #27 trifecta bioprosthetic valve 6. History of coronary artery disease with chronic total occlusion of circumflex 7. Hypothyroid 8. Paroxysmal atrial fibrillation on Eliquis for anticoagulation, currently atrial flutter, status post questionable atrial fibrillation ablation December 2019, status post cardioversion on 02/26/2020 9. Abdominal pain, flank pain 10. Jugular venous distention and pulsations 11. Pulmonary hypertension with RVSP of 43 12. Status post biventricular pacemaker 13. Shortness of breath 14. History of hypertension 15. History of hyperlipidemia 16. Obesity 17. Gastroesophageal reflux disease 18. Chronic kidney disease stage III 19. Obstructive sleep apnea with home CPAP use 20. Status post fall from standing 1 month ago Plan: The patient was seen and examined at his bedside on the cardiac stepdown unit. His chart diagnostics were reviewed. His case was discussed in detail with Dr. Volodymyr Sorto from cardiothoracic surgery. A 5 m walk test was completed with the patient, time 1: 6.83 seconds, time 2: 5.70 seconds, time 3: 6.20 seconds. Preoperative testing has been initiated. Continue to optimize medical oneyda gement with beta [place], aspirin, and statin. Medical management other comorbidities per primary care service recommendations. More recommendations to follow based on patient's clinical course and as his preoperative testing has resulted. Thank you for this consult and we look forward to working with you in the care of this patient. Time with Patient: Greater than 30
[2020-02-28] MEDS: MONTELUKAST 10 MG TAB PO SCH (20:08)
[2020-02-28] MEDS: ALPRAZolam 0.5 MG TAB PO PRN (20:08)
[2020-02-29 06:02] LABS: INR 1.6 (<1.2); Partial Thromboplastin Time 29.2 sec (22.0-30.0)
[2020-02-29 06:05] LABS: Anisocytosis Slight; HGB 10.9 gm/dL (13.0-17.5); Hypochromasia Slight; MCH 29.9 pg (25.0-35.0); MCV 93.4 fL (80.0-100.0); Mean Platelet Volume 8.3; Platelet Count 162 k/uL (150-450); Poikilocytosis Slight; RBC 3.63 m/uL (4.30-5.90); RDW 16.5 % (11.5-15.5)
[2020-02-29] MEDS: AMIODARONE 200 MG TAB PO SCH (06:29)
[2020-02-29] MEDS: MAGNESIUM OXIDE 400 MG TAB PO SCH (06:29)
[2020-02-29] MEDS: LORATADINE 10 MG TAB PO SCH (06:29)
[2020-02-29] MEDS: LEVOTHYROXINE 100 MCG TAB PO SCH (06:29)
[2020-02-29] MEDS: allopurinoL 100 MG TAB PO SCH (06:29)
[2020-02-29 06:33] LABS: Basophils # (M) 0.11 k/uL (0-0.2); Eosinophils # (M) 0.23 k/uL (0-0.7); Lymphocytes # (M) 2.15 k/uL (1.0-4.8); Monocytes # (M) 1.58 k/uL (0-1.0); Neutrophils # (M) 7.46 k/uL (1.3-7.7); Neutrophils % (M) 66 %; Nucleated Red Blood Cells 1 /100 WBC (0-0); Polychromasia Present; Total Cells Counted 200; WBC 11.3 k/uL (3.8-10.6)
[2020-02-29 06:34] LABS: Ovalocytes Present
[2020-02-29] MEDS: metOLazone 5 MG TAB PO SCH (09:32)
[2020-02-29] MEDS: carvediloL 3.125 MG TAB PO SCH ×2 (09:32→20:39)
[2020-02-29] MEDS: polyethylene glycoL 3350 17 GM POWD.PACK PO SCH (09:32)
[2020-02-29] MEDS: buPROPion SR 100 MG TABLET.ER PO SCH ×2 (09:32→20:38)
[2020-02-29] MEDS: APIXABAN 5 MG TAB PO SCH ×2 (09:32→20:38)
[2020-02-29] MEDS: SPIRONOLACTONE 25 MG TAB PO SCH (09:33)
[2020-02-29] MEDS: POTASSIUM CHLORIDE ER 20 MEQ TAB.ER PO SCH ×2 (09:33→20:38)
[2020-02-29] MEDS: SENNOSIDES-DOCUSATE SODIUM 1 EACH TAB PO SCH ×2 (09:33→20:38)
--- NOTE | 2020-02-29 10:20 | P.PN ---
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 Previous medical history of severe aortic stenosis status post surgical aortic valve replacement 2011, using a #27 trifecta bioprosthetic valve, coronary artery disease with chronic total occlusion of circumflex, hypothyroid, paroxysmal atrial fibrillation on Eliquis for anticoagulation, currently atrial flutter, status post questionable atrial fibrillation ablation December 2019, status post cardioversion on 02/26/2020, status post biventricular pacemaker, hypertension, hyperlipidemia, obesity, gastroesophageal reflux disease, chronic kidney disease stage III, obstructive sleep apnea with home CPAP use, status post fall from s tanding 1 month ago The patient is currently laying in bed in no acute distress, states he just wa nts to be left alone. CODE STATUS was addressed yesterday with primary care and patient wishes to BE a DO NOT RESUSCITATE. No new concerns. Objective - Vital Signs Vital signs: Vital Signs Temp 97.4 F L 02/29/20 08:00 Pulse 80 02/29/20 08:00 Resp 18 02/29/20 08:00 BP 101/49 02/29/20 08:00 Pulse Ox 100 02/29/20 08:00 Intake & Output 02/28/20 02/29/20 02/29/20 18:59 06:59 18:59 Intake Total 260 260 222 Output Total 0 0 Balance 260 260 222 Weight 117.5 kg 117 kg Intake: IV 20 20 Invasive Line 2 20 20 Oral 240 240 222 Output: Stool 0 0 Other: Voiding Method Toilet # Voids 4 - Constitutional General appearance: Present: morbidly obese, no acute distress - Respiratory Details: Lungs sounds diminished bilaterally. Respirations even, nonlabored. Currently on room air with oxygen saturation 94%. - Cardiovascular Details: S1, S2 present, systolic murmur present, AV paced on telemetry. Palpable peripheral pulses bilaterally. Bilateral lower extremity edema present. - Gastrointestinal Gastrointestinal Comment(s): Abdomen soft, nontender, nondistended, round/obese. Active bowel sounds present 4 quadrants. Tolerating diet. - Genitourinary Genitourinary Comment(s): Continues to void - Integumentary Integumentary Comment(s): Skin is warm and dry - Neurologic Neurologic: Present: CNII-XII intact - Musculoskeletal Musculoskeletal: Present: strength equal bilaterally - Psychiatric Psychiatric: Present: A&O x's 3 - Allied health notes Allied health notes reviewed: nursing - Labs CBC & Chem 7: 02/29/20 05:36 02/29/20 05:36 Labs: Abnormal Lab Results - Last 24 Hours (Table) 02/29/20 02/29/20 02/29/20 Range/Units 05:36 05:36 05:36 WBC 11.3 H (3.8-10.6) k/uL RBC 3.63 L (4.30-5.90) m/uL Hgb 10.9 L (13.0-17.5) gm/dL Hct 34.0 L (39.0-53.0) % RDW 16.5 H (11.5-15.5) % Monocytes # (Manual) 1.58 H (0-1.0) k/uL Nucleated RBCs 1 H (0-0) /100 WBC PT 16.0 H (9.0-12.0) sec INR 1.6 H (<1.2) Sodium 135 L (137-145) mmol/L BUN 75 H (9-20) mg/dL Creatinine 2.76 H (0.66-1.25) mg/dL Glucose 105 H (74-99) mg/dL HDL Cholesterol 16 L (40-60) mg/dL Assessment and Plan Assessment: 1. 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 Moderate to severe mitral valve regurgitation 3. Moderate to severe tricuspid valve regurgitation, [place] hypertension 4. Acute on chronic diastolic heart failure 5. History of severe aortic stenosis status post surgical aortic valve replacement 2011, using a #27 trifecta bioprosthetic valve 6. History of coronary artery disease with chronic total occlusion of ci rcumflex 7. Hypothyroid 8. Paroxysmal atrial fibrillation on Eliquis for anticoagulation, currently atrial flutter, status post questionable atrial fibrillation ablation December 2019, status post cardioversion on 02/26/2020 9. Status post biventricular pacemaker 10. History of hypertension 11. History of hyperlipidemia 12. Obesity 13. Gastroesophageal reflux disease 14. Chronic kidney disease stage III 15. Obstructive sleep apnea with home CPAP use 16. Status post fall from standing 1 month ago Plan: 1. Continue to optimize medical management with beta [place], aspirin, statin 2. Will review preoperative testing and cath films today with Dr. Lew. If patient truly wants to be a DO NOT RESUSCITATE as has been indicated surgery is not an option and would recommend medical management 3. Increase activity as tolerated. 4. Medical management of the comorbidities per primary care service, cardiology 5. More recommendations to follow Time with Patient: Greater than 30
[2020-02-29] MEDS: BUMETANIDE 0.25 MG/ML 10 ML VIAL IV SCH (11:11)
[2020-02-29 11:33] LABS: Hepatitis A Antibody IgM Non-Reactive (Non-Reactive); Hepatitis B Core IgM Non-Reactive (Non-Reactive); Hepatitis B Surface Antigen Non-Reactive (Non-Reactive); Hepatitis C IgG Antibody Non-Reactive (Non-Reactive)
--- NOTE | 2020-02-29 12:35 | P.PN ---
Subjective Progress Note Date: 02/29/20 Principal diagnosis: heart failure Patient states that his sob has been ongoing over the past several years. It has worsened lately for him. He has a cough, denied any pain. No fevers. No overnight events. Objective - Vital Signs Vital signs: Vital Signs Temp 97.4 F L 02/29/20 08:00 Pulse 80 02/29/20 08:00 Resp 18 02/29/20 08:00 BP 101/49 02/29/20 08:00 Pulse Ox 100 02/29/20 08:00 Intake & Output 02/28/20 02/29/20 02/29/20 18:59 06:59 18:59 Intake Total 260 260 222 Output Total 0 0 Balance 260 260 222 Weight 117.5 kg 117 kg Intake: IV 20 20 Invasive Line 2 20 20 Oral 240 240 222 Output: Stool 0 0 Other: Voiding Method Toilet # Voids 4 - Exam General: [non toxic], [no distress], [appears at stated age] Derm: [warm], [dry] Head: [atraumatic], [normocephalic], [symmetric] Eyes: [EOMI], [no lid lag], [anicteric sclera] Mouth: [no lip lesion], [mucus membranes moist] Cardiovascular: [S1S2 reg], [no murmur], [positive posterior tibial pulse bilateral], Bilateral lower extremity edema present. Lungs: Diminished breath sounds bilaterally, [no rhonchi, no rales] , [no accessory muscle use] Abdominal: [soft], [ nontender to palpation], [no guarding], [no appreciable organomegaly] Ext: [no gross muscle atrophy], [+2 edema], [no contractures] Neuro: [ CN II-XI grossly intact], [no focal neuro deficits] Psych: [Alert], [oriented], [appropriate affect] - Labs CBC & Chem 7: 02/29/20 05:36 02/29/20 05:36 Labs: Abnormal Lab Results - Last 24 Hours (Table) 02/29/20 02/29/20 02/29/20 Range/Units 05:36 05:36 05:36 WBC 11.3 H (3.8-10.6) k/uL RBC 3.63 L (4.30-5.90) m/uL Hgb 10.9 L (13.0-17.5) gm/dL Hct 34.0 L (39.0-53.0) % RDW 16.5 H (11.5-15.5) % Monocytes # (Manual) 1.58 H (0-1.0) k/uL Nucleated RBCs 1 H (0-0) /100 WBC PT 16.0 H (9.0-12.0) sec INR 1.6 H (<1.2) Sodium 135 L (137-145) mmol/L BUN 75 H (9-20) mg/dL Creatinine 2.76 H (0.66-1.25) mg/dL Glucose 105 H (74-99) mg/dL HDL Cholesterol 16 L (40-60) mg/dL Assessment and Plan Plan: 79-year-old man with medical history noted below who presented with increasing dyspnea on exertion since his ablation on 01/11 as well as bounding JVD on physical exam, congested chest x-ray, elevated BNP concerning for heart failure exacerbation. Patient was evaluated in the ER and admitted to the hospital for further management of his medical problems noted below. 1. Acute on chronic diastolic congestive heart failure exacerbation: - On diuresis, was on IV bumetanide, now switched to oral per cardiology. Continue daily weights. Strict I's and O's. - Cardiac cath 02/27/20 showed Mildly elevated left and right sided pressure s, decreased cardiac output, cardiac index consistent with cardiogenic shock, severe aortic insufficiency, severe mitral regurgitaion, severe tricuspid regurgitation 2. Severe aortic insufficiency, severe mitral regurgitaion, severe tricuspid regurgitation -CTS consulted for further assessment, awaiting surgical recommendations 3. Aortic stenosis status post TAVR in 2011 4. Atrial flutter: Status post JC guided cardioversion on 02/25. -Anticoagulation with Eliquis 5. Biventricular pacemaker, V paced 6. Acute on CKD stage III: -Cr improving -We will continue to monitor creatinine closely 7. CHICA on CPAP - Continue home CPAP 8. Hypothyroidism controlled -Increase levothyroxine to 100 mcg per day 9. GI/DVT prophylaxis 10. AM labs -CODE STATUS was discussed the patient. Patient wants to be a DO NOT RESUSCITATE
--- NOTE | 2020-02-29 14:48 | P.PN ---
Subjective Progress Note Date: 02/29/20 HISTORY OF PRESENT ILLNESS: Patient is status post JC with cardioversion. He is also status post right heart cath with Dr. Reynolds revealing mildly elevated left and right sided pressures, decreased cardiac output, cardiac index consistent with cardiogenic shock, severe aortic insufficiency, severe mitral regurgitation, and severe tricuspid regurgitation. Patient examined this morning at the bedside. Upon entering patients room, he is resting comfortably. He is laying flat in bed and appears to be in no acute distress. He denies chest pain or pressure. Vital signs are stable. PHYSICAL EXAM: VITAL SIGNS: Reviewed. GENERAL: Well-developed in no acute distress. NECK: Supple. + JVD. No thyromegaly LUNGS: Respirations even and unlabored. Lungs diminished. HEART: Regular rate and rhythm. S1 and S2 heard. Systolic murmur noted. EXTREMITIES: Normal range of motion. No clubbing or cyanosis. Peripheral pulses intact. 1+ bilateral lower extremity edema ASSESSMENT: Acute on chronic diastolic heart failure History of severe aortic stenosis status post surgical aortic valve replacement 2011 History of coronary artery disease with ROOF TILER of circumflex treated medically Typical atrial flutter Paroxysmal atrial fibrillation, status post JC with cardioversion Status post atrial fibrillation ablation December 2019 Severe aortic insufficiency Severe mitral regurgitation Severe tricuspid regurgitation Pulmonary hypertension with RVSP of 43 Status post biventricular pacemaker Fatigue PLAN: Continue current cardiac medications Cardiothoracic surgery evaluated patient. Patient high risk for surgical in tervention but could be considered for TAVR per CTS documentation. Patient currently refusing intervention and requesting to be a DNR. Discontinue IV Bumex Begin oral Bumex. Increase dose to 3mg BID Further recommendations pending patient course Nurse practitioner note has been reviewed by physician. Signing provider agrees with the documented findings, assessment, and plan of care. Objective - Vital Signs Vital signs: Vital Signs Temp 98.4 F 02/29/20 12:00 Pulse 75 02/29/20 12:00 Resp 16 02/29/20 12:00 BP 104/56 02/29/20 12:00 Pulse Ox 98 02/29/20 12:00 Intake & Output 02/28/20 02/29/20 02/29/20 18:59 06:59 18:59 Intake Total 260 260 222 Output Total 0 0 Balance 260 260 222 Weight 117.5 kg 117 kg Intake: IV 20 20 Invasive Line 2 20 20 Oral 240 240 222 Output: Stool 0 0 Other: Voiding Method Toilet # Voids 4 - Labs CBC & Chem 7: 02/29/20 05:36 02/29/20 05:36 Labs: Abnormal Lab Results - Last 24 Hours (Table) 02/29/20 02/29/20 02/29/20 Range/Units 05:36 05:36 05:36 WBC 11.3 H (3.8-10.6) k/uL RBC 3.63 L (4.30-5.90) m/uL Hgb 10.9 L (13.0-17.5) gm/dL Hct 34.0 L (39.0-53.0) % RDW 16.5 H (11.5-15.5) % Monocytes # (Manual) 1.58 H (0-1.0) k/uL Nucleated RBCs 1 H (0-0) /100 WBC PT 16.0 H (9.0-12.0) sec INR 1.6 H (<1.2) Sodium 135 L (137-145) mmol/L BUN 75 H (9-20) mg/dL Creatinine 2.76 H (0.66-1.25) mg/dL Glucose 105 H (74-99) mg/dL HDL Cholesterol 16 L (40-60) mg/dL
[2020-02-29 17:32] LABS: Hemoglobin A1C 6.3 % (4.0-6.0)
[2020-02-29] MEDS: BUMETANIDE 1 MG TAB PO SCH (17:42)
[2020-02-29] MEDS: MONTELUKAST 10 MG TAB PO SCH (20:38)
[2020-03-01] MEDS: LEVOTHYROXINE 100 MCG TAB PO SCH (06:33)
[2020-03-01] MEDS: LORATADINE 10 MG TAB PO SCH (06:33)
[2020-03-01] MEDS: AMIODARONE 200 MG TAB PO SCH (06:33)
[2020-03-01] MEDS: MAGNESIUM OXIDE 400 MG TAB PO SCH (06:33)
[2020-03-01] MEDS: allopurinoL 100 MG TAB PO SCH (06:33)
[2020-03-01 08:18] LABS: Potassium 3.5 mmol/L (3.5-5.1)
[2020-03-01] MEDS: APIXABAN 5 MG TAB PO SCH ×2 (09:49→21:32)
[2020-03-01] MEDS: POTASSIUM CHLORIDE ER 20 MEQ TAB.ER PO SCH ×2 (09:49→21:32)
[2020-03-01] MEDS: BUMETANIDE 1 MG TAB PO SCH ×2 (09:50→17:24)
[2020-03-01] MEDS: SPIRONOLACTONE 25 MG TAB PO SCH (09:50)
[2020-03-01] MEDS: SENNOSIDES-DOCUSATE SODIUM 1 EACH TAB PO SCH ×2 (09:50→21:32)
[2020-03-01] MEDS: polyethylene glycoL 3350 17 GM POWD.PACK PO SCH (09:50)
[2020-03-01] MEDS: carvediloL 3.125 MG TAB PO SCH ×2 (09:50→17:25)
[2020-03-01] MEDS: metOLazone 5 MG TAB PO SCH (09:55)
[2020-03-01] MEDS: buPROPion SR 100 MG TABLET.ER PO SCH ×2 (09:55→21:32)
[2020-03-01] MEDS ORDERED: BUMETANIDE 1 MG TAB PO ONE (11:30)
--- NOTE | 2020-03-01 14:21 | P.PN ---
Subjective Progress Note Date: 03/01/20 Principal diagnosis: heart failure Patient had a rough night last night, did not sleep well. Was sleeping this am. No complaints. No fevers or pain. Breathing is at baseline. Objective - Vital Signs Vital signs: Vital Signs Temp 98.2 F 03/01/20 04:00 Pulse 89 03/01/20 12:00 Resp 18 03/01/20 12:00 BP 99/59 03/01/20 12:00 Pulse Ox 99 03/01/20 12:00 Intake & Output 02/29/20 03/01/20 03/01/20 18:59 06:59 18:59 Intake Total 694 240 Output Total 100 400 Balance 694 -100 -160 Weight 115.7 kg Intake: Oral 694 240 Output: Urine 100 400 Other: Voiding Method Toilet # Voids 1 2 2 - Exam General: [non toxic], [no distress], [appears at stated age] Derm: [warm], [dry] Head: [atraumatic], [normocephalic], [symmetric] Eyes: [EOMI], [no lid lag], [anicteric sclera] Mouth: [no lip lesion], [mucus membranes moist] Cardiovascular: [S1S2 reg], [no murmur], [positive posterior tibial pulse bilateral], Bilateral lower extremity edema present. Lungs: Diminished breath sounds bilaterally, [no rhonchi, no rales] , [no accessory muscle use] Abdominal: [soft], [ nontender to palpation], [no guarding], [no appreciable organomegaly] Ext: [no gross muscle atrophy], [+2 edema], [no contractures] Neuro: [ CN II-XI grossly intact], [no focal neuro deficits] Psych: [Alert], [oriented], [appropriate affect] - Labs CBC & Chem 7: 02/29/20 05:36 03/01/20 07:28 Labs: Abnormal Lab Results - Last 24 Hours (Table) 02/29/20 03/01/20 Range/Units 05:36 07:28 Sodium 135 L (137-145) mmol/L BUN 72 H (9-20) mg/dL Creatinine 2.32 H (0.66-1.25) mg/dL Hemoglobin A1c 6.3 H (4.0-6.0) % Assessment and Plan Plan: 1. Acute on chronic diastolic congestive heart failure exacerbation: - On diuresis, was on IV bumetanide, now switched to oral per cardiology. Continue daily weights. Strict I's and O's. - Cardiac cath 02/27/20 showed Mildly elevated left and right sided pressures, decreased cardiac output, cardiac index consistent with cardiogenic shock, severe aortic insufficiency, severe mitral regurgitaion, severe tricuspid regurgitation 2. Severe aortic insufficiency, severe mitral regurgitaion, severe tricuspid regurgitation -CTS consulted for further assessment -D/W CT surgery, patient would like to have the potential TAVR at [facility]. This is an outpatient process, the coordinator will call patient upon discharge to set up the needed appointments. 3. Aortic stenosis status post TAVR in 2011 4. Atrial flutter: Status post JC guided cardioversion on 02/25. -Anticoagulation with Eliquis 5. Biventricular pacemaker, V paced 6. Acute on CKD stage III: -Cr improving -We will continue to monitor creatinine closely 7. CHICA on CPAP - Continue home CPAP 8. Hypothyroidism controlled -TSH was low and levothyroxine was increased to 100mcg daily. -Continue levothyroxine 100 mcg per day 9. GI/DVT prophylaxis 10. AM labs -CODE STATUS was discussed the patient. Patient wants to be a DO NOT RESUSCITATE
--- NOTE | 2020-03-01 14:35 | P.PN ---
Subjective Progress Note Date: 03/01/20 HISTORY OF PRESENT ILLNESS: Patient is status post JC with cardioversion. He is also status post right heart cath with Dr. Reynolds revealing mildly elevated left and right sided pressures, decreased cardiac output, cardiac index consistent with cardiogenic shock, severe aortic insufficiency, severe mitral regurgitation, and severe tricuspid regurgitation. Patient examined this morning at the bedside. He appears to be in no acute distress. He denies chest pain or pressure. Shortness of breath remains stable. Vital signs are stable. He has been transitioned to oral bumex. Creatinine 2.32. PHYSICAL EXAM: VITAL SIGNS: Reviewed. GENERAL: Well-developed in no acute distress. NECK: Supple. Minimal JVD. No thyromegaly LUNGS: Respirations even and unlabored. Lungs diminished. HEART: Regular rate and rhythm. S1 and S2 heard. Systolic murmur noted. EXTREMITIES: Normal range of motion. No clubbing or cyanosis. Peripheral pulses intact. 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 Spoke with [facility] CENTRAL OFFICE OPERATOR SUPERVISOR, Jasmina, who states she will begin process of sending information to [facility] for their cardiothoracic surgeons to review. Patient is stable from a cardiac perspective. Nurse practitioner note has been reviewed by physician. Signing provider agrees with the documented findings, assessment, and plan of care. Objective - Vital Signs Vital signs: Vital Signs Temp 98.2 F 03/01/20 04:00 Pulse 89 03/01/20 12:00 Resp 18 03/01/20 12:00 BP 99/59 03/01/20 12:00 Pulse Ox 99 03/01/20 12:00 Intake & Output 02/29/20 03/01/20 03/01/20 18:59 06:59 18:59 Intake Total 694 240 Output Total 100 400 Balance 694 -100 -160 Weight 115.7 kg Intake: Oral 694 240 Output: Urine 100 400 Other: Voiding Method Toilet # Voids 1 2 2 - Labs CBC & Chem 7: 02/29/20 05:36 03/01/20 07:28 Labs: Abnormal Lab Results - Last 24 Hours (Table) 02/29/20 03/01/20 Range/Units 05:36 07:28 Sodium 135 L (137-145) mmol/L BUN 72 H (9-20) mg/dL Creatinine 2.32 H (0.66-1.25) mg/dL Hemoglobin A1c 6.3 H (4.0-6.0) %
--- NOTE | 2020-03-01 14:48 | P.PN ---
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 Previous medical history of severe aortic stenosis status post surgical aortic valve replacement 2011, using a #27 trifecta bioprosthetic valve, coronary artery disease with chronic total occlusion of circumflex, hypothyroid, paroxysmal atrial fibrillation on Eliquis for anticoagulation, currently atrial flutter, status post questionable atrial fibrillation ablation December 2019, status post cardioversion on 02/26/2020, status post biventricular pacemaker, hypertension, hyperlipidemia, obesity, gastroesophageal reflux disease, chronic kidney disease stage III, obstructive sleep apnea with home CPAP use, status post fall from s tanding 1 month ago The patient is currently sitting up in bed in no acute distress. He was seen and examined with Dr. Santacruz who reviewed his echocardiogram films. We did discuss the possibility of TAVR with the patient in the patient is considering consenting for this procedure. We also discussed the need to rescind his DO NOT RESUSCITATE if he is going to be considered for TAVR and he is agreeable at this time. He states he just wants to feel better. Objective - Vital Signs Vital signs: Vital Signs Temp 98.2 F 03/01/20 04:00 Pulse 89 03/01/20 14:00 Resp 18 03/01/20 14:00 BP 99/59 03/01/20 12:00 Pulse Ox 99 03/01/20 12:00 Intake & Output 02/29/20 03/01/20 03/01/20 18:59 06:59 18:59 Intake Total 694 240 Output Total 100 400 Balance 694 -100 -160 Weight 115.7 kg Intake: Oral 694 240 Output: Urine 100 400 Other: Voiding Method Toilet # Voids 1 2 2 - Constitutional General appearance: Present: cooperative, no acute distress, obese - Respiratory Details: Lungs sounds diminished bilaterally. Respirations even, nonlabored. Currently on room air with oxygen saturation 99%. - Cardiovascular Details: S1, S2 present, systolic murmur present, AV paced on telemetry. Palpable peripheral pulses bilaterally. Bilateral lower extremity edema present. - Gastrointestinal Gastrointestinal Comment(s): Abdomen soft, nontender, nondistended, round/obese. Active bowel sounds present 4 quadrants. Tolerating diet. - Genitourinary Genitourinary Comment(s): Continues to void - Integumentary Integumentary Comment(s): Skin is warm and dry - Neurologic Neurologic: Present: CNII-XII intact - Musculoskeletal Musculoskeletal: Present: strength equal bilaterally - Psychiatric Psychiatric: Present: A&O x's 3 - Allied health notes Allied health notes reviewed: nursing - Labs CBC & Chem 7: 02/29/20 05:36 03/01/20 07:28 Labs: Abnormal Lab Results - Last 24 Hours (Table) 02/29/20 03/01/20 Range/Units 05:36 07:28 Sodium 135 L (137-145) mmol/L BUN 72 H (9-20) mg/dL Creatinine 2.32 H (0.66-1.25) mg/dL Hemoglobin A1c 6.3 H (4.0-6.0) % - Imaging and Cardiology Heart catheterization and transesophageal echocardiogram films reviewed with Dr. Santacruz Assessment and Plan Assessment: 1. 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 Moderate to severe mitral valve regurgitation 3. Moderate to severe tricuspid valve regurgitation, [place] hypertension 4. Acute on chronic diastolic heart failure 5. History of severe aortic stenosis status post surgical aortic valve replacement 2011, using a #27 trifecta bioprosthetic valve 6. History of coronary artery disease with chronic total occlusion of circumflex 7. Hypothyroid 8. Paroxysmal atrial fibrillation on Eliquis for anticoagulation, currently atrial flutter, status post questionable atrial fibrillation ablation December 2019, status post cardioversion on 02/26/2020 9. Status post biventricular pacemaker 10. History of hypertension 11. History of hyperlipidemia 12. Obesity 13. Gastroesophageal reflux disease 14. Chronic kidney disease stage III 15. Obstructive sleep apnea with home CPAP use 16. Status post fall from standing 1 month ago Plan: 1. Continue to optimize medical management with beta [place], aspirin, statin. Optimal heart failure management 2. We did discuss TAVR with the patient and he is agreeable to consideration for outpatient procedure. The patient's was also called and updated. The patient would prefer to go to [facility] for TAVR, all the patient's information will be sent to the TAVR coordinator at [facility]. TAVR coordinator from [place] will contact the patient and his once all information has been obtained for TAVR clinic with gated CT. Patient will need dental clearance prior to procedure and this was discussed with the patient's . 3. Increase activity as tolerated. 4. Medical management of the comorbidities per primary care service, cardiology 5. Our recommendations were discussed with primary care, cardiology, as well as the patient and his . Please call us with any further questions Time with Patient: Greater than 30
[2020-03-01] MEDS: MONTELUKAST 10 MG TAB PO SCH (21:32)
[2020-03-02] MEDS: LORATADINE 10 MG TAB PO SCH (06:58)
[2020-03-02] MEDS: MAGNESIUM OXIDE 400 MG TAB PO SCH (06:58)
[2020-03-02] MEDS: AMIODARONE 200 MG TAB PO SCH (06:58)
[2020-03-02] MEDS: allopurinoL 100 MG TAB PO SCH (06:58)
[2020-03-02] MEDS: LEVOTHYROXINE 100 MCG TAB PO SCH (06:58)
[2020-03-02 08:36] LABS: Calcium 9.2 mg/dL (8.4-10.2); Magnesium 2.1 mg/dL (1.6-2.3); Potassium 3.5 mmol/L (3.5-5.1)
[2020-03-02] MEDS: SENNOSIDES-DOCUSATE SODIUM 1 EACH TAB PO SCH (09:24)
[2020-03-02] MEDS: BUMETANIDE 1 MG TAB PO SCH (09:24)
[2020-03-02] MEDS: APIXABAN 5 MG TAB PO SCH (09:25)
[2020-03-02] MEDS: carvediloL 3.125 MG TAB PO SCH (09:25)
[2020-03-02] MEDS: SPIRONOLACTONE 25 MG TAB PO SCH (09:25)
[2020-03-02] MEDS: POTASSIUM CHLORIDE ER 20 MEQ TAB.ER PO SCH (09:25)
[2020-03-02] MEDS: polyethylene glycoL 3350 17 GM POWD.PACK PO SCH (09:25)
[2020-03-02] MEDS: metOLazone 5 MG TAB PO SCH (09:30)
[2020-03-02] MEDS: buPROPion SR 100 MG TABLET.ER PO SCH (09:30)
[2020-03-02 09:35] VITALS: TEMP 97.5
[2020-03-02] MEDS: ACETAMINOPHEN TAB 500 MG TAB PO PRN (11:33)
[2020-03-02 12:03] VITALS: BP 93/50; PULSE 85; RESP 16
--- NOTE | 2020-03-02 12:05 | P.PN ---
Subjective Progress Note Date: 03/02/20 HISTORY OF PRESENT ILLNESS: Patient is status post JC with cardioversion. He is also status post right heart cath with Dr. Reynolds revealing mildly elevated left and right sided pressures, decreased cardiac output, cardiac index consistent with cardiogenic shock, severe aortic insufficiency, severe mitral regurgitation, and severe tricuspid regurgitation. Patient examined this morning at the bedside. He appears to be in no acute distress. He denies chest pain or pressure. He denies shortness of breath.. Vital signs are stable. He remains on oral Bumex. Creatinine 2.17 today. PHYSICAL EXAM: VITAL SIGNS: Reviewed. GENERAL: Well-developed in no acute distress. NECK: Supple. Minimal JVD. No thyromegaly LUNGS: Respirations even and unlabored. Lungs diminished. HEART: Regular rate and rhythm. S1 and S2 heard. Systolic murmur noted. EXTREMITIES: Normal range of motion. No clubbing or cyanosis. Peripheral pulses intact. 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 Signing provider agrees with the documented findings, assessment, and plan of care. Objective - Vital Signs Vital signs: Vital Signs Temp 97.5 F L 03/02/20 08:00 Pulse 85 03/02/20 12:00 Resp 16 03/02/20 12:00 BP 93/50 03/02/20 12:00 Pulse Ox 93 L 03/02/20 12:00 Intake & Output 03/01/20 03/02/20 03/02/20 18:59 06:59 18:59 Intake Total 360 120 Output Total 400 0 Balance -40 120 Weight 115.2 kg Intake: Oral 360 120 Output: Urine 400 Stool 0 Other: Voiding Method Toilet Toilet # Voids 2 2 - Labs CBC & Chem 7: 02/29/20 05:36 03/02/20 07:42 Labs: Abnormal Lab Results - Last 24 Hours (Table) 03/02/20 Range/Units 07:42 Chloride 96 L (98-107) mmol/L Carbon Dioxide 34 H (22-30) mmol/L BUN 60 H (9-20) mg/dL Creatinine 2.17 H (0.66-1.25) mg/dL Glucose 122 H (74-99) mg/dL
--- NOTE | 2020-03-02 14:56 | P.DS ---
Providers Date of admission: 02/22/20 16:02 Expected date of discharge: 03/02/20 Attending physician: Torsten Hernández MD Consults: 02/22/20 16:03 Consult Physician Urgent Consulting Provider: Rolo Moreira Consult Reason/Comments: extertional dyspnea, aechf Do you want consulting provider notified?: Yes 02/23/20 14:48 Consult Physician Routine Consulting Provider: Coty Minor Consult Reason/Comments: heart failure exacerbation Do you want consulting provider notified?: Yes 02/28/20 10:27 Consult Physician Routine Consulting Provider: Marquise Lew Consult Reason/Comments: evaluation for repair/replacement for polyvalvular disease Do you want consulting provider notified?: Yes Primary care physician: Torsten Hernández MD Hospital Course: 79-year-old male with a history of atrial fibrillation, atrial flutter, on AC with eliquis, chronic diastolic heart failure, status post biventricular permanent pacemaker, recent atrial fibrillation ablation January 02, 2020, hypertension, hyperlipidemia, chronic kidney disease 3, sleep apnea, hypothyroidism, severe aortic stenosis status post aortic valve replacement in 2011 who presents for workup of his shortness breath and bilateral flank pain. Patient had an aortic valve replacement in [address] Diaz at [facility] and then also had a pacemaker in 2013. According to his ankush pepe had a pulmonary vein ablation for his atrial fibrillation January 02, 2020 at [facility] in [place]. Unfortunately since that time patient has felt much worse with shortness of breath with minimal activity such as walking the bathroom. The and also stated that he has been having flank pain which has mainly started since the ablation. Patient states he has chronic lower extremity edema which has been going on for months to years. Patient denied any chest pain or pressure. Patient's also admitted that he has been having frequent pulsations in his neck. Workup in the emergency department atrial flutter, biventricularly paced rhythm on his EKG. Chest xray "no suspicious pulmonary process" Laboratory reviewed, White blood blood cell count 10.9, hemoglobin 10.7, platelets 170, sodium 137, creatinine 2.0, glucose 138, troponin 0.024, 0.026, 0.025, proBNP 3510, lactic acid 2.7, improved to 1.4, lipase 88, AST 32, ALT 22, bilirubin 0.8. Patient was admitted for acute congestive heart failure exacerbation, was started on IV diuresis with Bumex. 2-D echocardiogram showed him to have an overall left ventricular systolic function to be low normal with an ejection fraction between 50 and 55%, severely dilated left atrium rate are then 40 mm/m, bioprosthetic aortic valve with moderate to severe aortic insufficiency, moderate to severe mitral valve regurgitation, moderate to severe tricuspid valve regurgitation, and moderate pulmonary hypertension. Subsequently patient underwent JC with cardioversion back to normal sinus rhythm. The JC was reported as follows: 1. There is a bioprosthetic aortic valve which appears to be somewhat small for patient's annulus. There is severe aortic insufficiency with descending aortic holo-diastolic flow reversal. 2. The mitral valve appears be normal with severe central mitral regurgitation. PISA estimated EROA 0.56cm2. 3 pulmonary veins were interrogated with PW showing holosystolic flow reversal consistent with severe mitral regurgitation. The pulmonary veins appear dilated. 3. Tricuspid valve appears structurally normal. There is severe tricuspid regurgitation. There is equalization of the systolic and diastolic color Doppler jet consistent with severe tricuspid regurgitation. There is a RV pacemaker lead through the tricuspid valve. 4. There is a small intra-atrial shunt by bubble study only without significant flow noted by color Doppler. Likely remnant of prior pulmonary vein ablation. 5. Left atrial appendage is free of clot. 6. Left ventricular size and function appear to be low normal with ejection fraction 50-55%. Subsequently patient had a heart catheterization which showed: 1. Mildly elevated left and right sided pressures 2. Decreased cardiac output, cardiac index consistent with cardiogenic shock 3. Severe aortic insufficiency, severe mitral regurgitaion, severe tricuspid regurgitation PLAN: 1. Evaluation for repair/ replacement for polyvalvular disease. 2. May consider repeat JC to exclude aortic paravalvular leak as regurgitant jet not well visualized on prior JC or ICE. Due to the above findings patient was seen by cardiothoracic surgery, and after talking to patient, he told the surgeon that he would like to have any heart surgery in [facility]. Due to that cardiac surgery service who advised TAVR arranged for the outpatient coordinator to call the patient upon discharge to complete the needed follow-up appointments to prepare for the surgery. Towards the end of the hospitalization patient was switched from IV to by mouth Bumex, he tolerated that well. Currently is feeling well. His oral Bumex was titrated up from 2 mg twice daily to 3 mg twice daily upon discharge. He will be discharged home in a stable condition. Time for discharge 35 minutes. Patient Condition at Discharge: Stable Plan - Discharge Summary Discharge Rx Participant: No New Discharge Prescriptions: New Bumetanide [BUMEX] 3 mg PO BID@0900,1600 30 Days #60 tab Continue Tamsulosin HCl [Flomax] 0.4 mg PO HS Cholecalciferol [Vitamin D3 (25 Mcg = 1000 Iu)] 2,000 unit PO DAILY Montelukast [Singulair] 10 mg PO HS Potassium Chloride 40 meq PO BID Omeprazole [PriLOSEC] 20 mg PO AC-BID Multivitamins, Thera [Multivitamin (formulary)] 1 tab PO AC-BRKFST metOLazone [Zaroxolyn] 5 mg PO DAILY PRN PRN Reason: Edema Fluticasone Nasal [place] [Flonase Nasal [place]] 1 spray EA NOSTRIL DAILY PRN PRN Reason: Allergy Symptoms Cod Liver Oil 1 cap PO DAILY Vits A,C,E/Lutein/Minerals [Ocuvite with Lutein Tablet] 1 tab PO DAILY Magnesium Oxide [Baptiste] 500 mg PO AC-BRKFST Loratadine 10 mg PO AC-BRKFST Levothyroxine Sodium [Synthroid] 75 mcg PO DAILY carvediloL [Coreg] 3.125 mg PO PC-BID buPROPion HCL [Wellbutrin SR] 100 mg PO BID Docusate [Colace] 100 mg PO DAILY PRN PRN Reason: Constipation Apixaban [Eliquis] 5 mg PO BID Amiodarone [Cordarone] 200 mg PO AC-BRKFST Allopurinol [Zyloprim] 100 mg PO AC-BRKFST Acetaminophen [Tylenol Arthritis] 1,300 mg PO Q8H PRN PRN Reason: Pain Acetaminophen Tab [Tylenol] 500 mg PO Q4H PRN PRN Reason: Pain Spironolactone 12.5 mg PO DAILY Discontinued Bumetanide [BUMEX] 2 mg PO BID Discharge Medication List Cholecalciferol [Vitamin D3 (25 Mcg = 1000 Iu)] 2,000 unit PO DAILY 06/17/18 [History] Cod Liver Oil 1 cap PO DAILY 06/17/18 [History] Fluticasone Nasal [place] [Flonase Nasal [place]] 1 spray EA NOSTRIL DAILY PRN 06/17/18 [History] Montelukast [Singulair] 10 mg PO HS 06/17/18 [History] Multivitamins, Thera [Multivitamin (formulary)] 1 tab PO AC-BRKFST 06/17/18 [History] Omeprazole [PriLOSEC] 20 mg PO AC-BID 06/17/18 [History] Potassium Chloride 40 meq PO BID 06/17/18 [History] Tamsulosin HCl [Flomax] 0.4 mg PO HS 06/17/18 [History] metOLazone [Zaroxolyn] 5 mg PO DAILY PRN 06/17/18 [History] Acetaminophen Tab [Tylenol] 500 mg PO Q4H PRN 02/22/20 [History] Acetaminophen [Tylenol Arthritis] 1,300 mg PO Q8H PRN 02/22/20 [History] Allopurinol [Zyloprim] 100 mg PO AC-BRKFST 02/22/20 [History] Amiodarone [Cordarone] 200 mg PO AC-BRKFST 02/22/20 [History] Apixaban [Eliquis] 5 mg PO BID 02/22/20 [History] Docusate [Colace] 100 mg PO DAILY PRN 02/22/20 [History] Levothyroxine Sodium [Synthroid] 75 mcg PO DAILY 02/22/20 [History] Loratadine 10 mg PO AC-BRKFST 02/22/20 [History] Magnesium Oxide [Baptiste] 500 mg PO AC-BRKFST 02/22/20 [History] Spironolactone 12.5 mg PO DAILY 02/22/20 [History] Vits A,C,E/Lutein/Minerals [Ocuvite with Lutein Tablet] 1 tab PO DAILY 02/22/20 [History] buPROPion HCL [Wellbutrin SR] 100 mg PO BID 02/22/20 [History] carvediloL [Coreg] 3.125 mg PO PC-BID 02/22/20 [History] Bumetanide [BUMEX] 3 mg PO BID@0900,1600 30 Days #60 tab 03/02/20 [Rx] Follow up Appointment(s)/Referral(s): Bird Palmer MD [STAFF PHYSICIAN] - 1 Week Michael Rodriguez MD [REFERRING] - 1-2 days
== END 2020-03-02 16:15 | disposition home or self-care (01) | DRG 286 ==
LOC: EC 13:19 → 5NMEDONC 16:02 → 3SCARD 02-25 20:50
PROVIDERS: ADMIT Internal Medicine; ATTEND Internal Medicine
DX: I13.0 Hypertensive heart and chronic kidney disease with heart failure and stage 1 through stage 4 chronic kidney disease, or unspecified chronic kidney disease (principal); I50.33 Acute on chronic diastolic (congestive) heart failure; R57.0 Cardiogenic shock; N17.9 Acute kidney failure, unspecified; I48.3 Typical atrial flutter; T82.897A Other specified complication of cardiac prosthetic devices, implants and grafts, initial encounter; I27.20 Pulmonary hypertension, unspecified; E11.22 Type 2 diabetes mellitus with diabetic chronic kidney disease; E66.01 Morbid (severe) obesity due to excess calories; I48.0 Paroxysmal atrial fibrillation; I25.82 Chronic total occlusion of coronary artery; N18.30 Chronic kidney disease, stage 3 unspecified; Z66 Do not resuscitate; Z20.828 Contact with and (suspected) exposure to other viral communicable diseases; I08.3 Combined rheumatic disorders of mitral, aortic and tricuspid valves; I25.10 Atherosclerotic heart disease of native coronary artery without angina pectoris; E78.5 Hyperlipidemia, unspecified; F32.9 Major depressive disorder, single episode, unspecified; E03.9 Hypothyroidism, unspecified; G47.33 Obstructive sleep apnea (adult) (pediatric); Z68.33 Body mass index [BMI] 33.0-33.9, adult; R10.9 Unspecified abdominal pain; J45.20 Mild intermittent asthma, uncomplicated; J32.9 Chronic sinusitis, unspecified; K21.9 Gastro-esophageal reflux disease without esophagitis; I25.2 Old myocardial infarction; J30.2 Other seasonal allergic rhinitis; Z79.01 Long term (current) use of anticoagulants; Z79.890 Hormone replacement therapy; Z79.899 Other long term (current) drug therapy; Z95.3 Presence of xenogenic heart valve; Z87.19 Personal history of other diseases of the digestive system; Z95.0 Presence of cardiac pacemaker; Z91.81 History of falling; Z71.3 Dietary counseling and surveillance; Z88.8 Allergy status to other drugs, medicaments and biological substances; Y83.1 Surgical operation with implant of artificial internal device as the cause of abnormal reaction of the patient, or of later complication, without mention of misadventure at the time of the procedure; Z80.9 Family history of malignant neoplasm, unspecified
CPT/HCPCS: 36415; 71045; 71046; 76937; 80048; 80053; 80061; 80074; 81003; 82810; 83036; 83605; 83690; 83735; 83880; 84439; 84443; 84484; 85018; 85025; 85379; 85610; 85730; 87635; 92960; 93005; 93306; 93312; 93320; 93325; 93451; 93662; 93880; 94150; 96374; 96375; 99285

== ENCOUNTER → 2021-08-13 | Outpatient (CLI) | payer MEDICARE, BC ==
--- NOTE | 2021-08-13 11:18 | CA ---
Transthoracic Echo Report Name: Christiano Logan Age: 81 Gender: M : 1940 Exam Date: 08/13/2021 08:41 Exam Location: [facility] Echo Ht (in): 72 Wt (lb): 265 Ordering Physician: aLuri Reynolds DO ([email or web address]) Attending/Referring Phys: Reconciliation Specialist Erika Khan RDCS Procedure CPT: Indications: chf Cardiac Hx: Morbid Obesity, TAVR, CABG, Technical Quality: Very technically difficult study Contrast 1: Lumason Total Dose (mL): 2 Contrast 2: Total Dose (mL): MEASUREMENTS (Male / Female) Normal Values 2D ECHO LV Diastolic Diameter PLAX 5.1 cm 4.2 - 5.9 / 3.9 - 5.3 cm LV Systolic Diameter PLAX 4.0 cm IVS Diastolic Thickness 1.3 cm 0.6 - 1.0 / 0.6 - 0.9 cm LVPW Diastolic Thickness 1.7 cm 0.6 - 1.0 / 0.6 - 0.9 cm LV Relative Wall Thickness 0.6 RV Internal Dim ED PLAX 4.1 cm LA Systolic Diameter LX 5.3 cm 3.0 - 4.0 / 2.7 - 3.8 cm DOPPLER AV Peak Velocity 212.2 cm/s AV Peak Gradient 18.0 mmHg AV Mean Velocity 129.7 cm/s AV Mean Gradient 8.0 mmHg AV Velocity Time Integral 33.1 cm LVOT Peak Velocity 54.2 cm/s LVOT Peak Gradient 1.2 mmHg MV Peak Velocity 119.6 cm/s MV Peak Gradient 5.7 mmHg MV Mean Velocity 48.6 cm/s MV Mean Gradient 1.2 mmHg MV Velocity Time Integral 23.3 cm MV Area PHT 4.2 cm??? Mitral E Point Velocity 94.7 cm/s Mitral A Point Velocity 32.6 cm/s Mitral E to A Ratio 2.9 MV Deceleration Time 180.7 ms TR Peak Velocity 233.5 cm/s TR Peak Gradient 21.8 mmHg Right Ventricular Systolic Press 26.8 mmHg FINDINGS Left Ventricle Left ventricular ejection fraction is estimated at 40-45 %. Left ventricular cavity size normal. Mildly increased left ventricular wall thickness. Right Ventricle Normal right ventricular size and function. Right ventricular systolic pressure within normal limits. Right Atrium Normal right atrial size. Left Atrium Severely increased left atrial diameter. Mildly increased left atrial area. Mitral Valve Mitral valve not well visualized. Mitral valve thickened. Aortic Valve Aortic valve not well visualized. Normally bioprosthetic aortic valve with a peak velocity of m/s, peak gradient 18 mmHg, mean gradient mild aortic regurgitation. 8 mmHg. Tricuspid Valve Tricuspid valve not well visualized. Pulmonic Valve Pulmonic valve not well visualized. Pericardium Normal pericardium. Aorta Aortic root and proximal ascending aorta not well visualized. CONCLUSIONS Somewhat technically difficult study Mild LVH Left ventricular ejection fraction 40-45% with global hypokinesis Normal RVSP Moderately dilated left atrium Normal bioprosthetic aortic valve with mean gradient 8 mmHg Thickening of the mitral leaflet cusps with what appears to be a mitral clip. No significant mitral stenosis. Mild mitral regurgitation. Previewed by: Dr. Lauri Reynolds DO (Electronically Signed) Final Date: 13 August 2021 11:17
== END | disposition home or self-care (01) ==
LOC: RADECHMAIN 08:09
PROVIDERS: ATTEND Internal Medicine
DX: I08.0 Rheumatic disorders of both mitral and aortic valves (principal)
CPT/HCPCS: C8929; Q9950; 93306

== ENCOUNTER 2023-10-01 20:35 | Inpatient (IN) | payer MEDICARE, BC ==
--- NOTE | 2023-10-01 21:12 | ED ---
General Adult HPI - General Chief complaint: Fever Stated complaint: ENCEPHALOPY,SEPSIS Time Seen by Provider: 10/01/23 20:55 Source: EMS Mode of arrival: EMS Limitations: altered mental status - History of Present Illness Initial comments: This patient is an 83-year-old man who arrives here as a transfer from [facility]. The patient reportedly sent here for suspected sepsis and encephalopathy. When I interviewed the patient he is without complaints. He denies pain, dyspnea, cough, vomiting or diarrhea. Review of the transfer paperwork reveals that the patient had chest x-ray that was interpreted as not showing acute infiltrate, congestive heart failure or effusion. They do report presence of previous sternotomy and also a pacemaker and TAVR. The patient had CT scan of the brain and cervical spine that they interpreted as being negative for acute fracture, skull fracture, or intracranial hemorrhage. Question possible normal pressure hydrocephalus. Included lactic acid 2.2. Normal troponin. Normal PT and PTT. Ammonia 37, normal. Chemistries unremarkable except for creatinine of 2.1 and blood glucose 196. Urinalysis was unremarkable. BNP was normal. The CBC showed a white count of 19.8 thousand, normal hemoglobin, normal platelets. The facility, the patient received dose of cefepime and vancomycin and was transferred here. The transfer records show that the patient is to be DNR with no resuscitation. - Related Data Home Medications Medication Instructions Recorded Confirmed Fluticasone Nasal [place] [Flonase 1 spray EA NOSTRIL DAILY PRN 06/17/18 10/02/23 Nasal [place]] Montelukast [Singulair] 10 mg PO HS 06/17/18 10/02/23 Omeprazole [PriLOSEC] 20 mg PO BID 06/17/18 10/02/23 Tamsulosin HCl [Flomax] 0.4 mg PO HS 06/17/18 10/02/23 metOLazone [Zaroxolyn] 5 mg PO TUTH 06/17/18 10/02/23 Acetaminophen Tab [Tylenol] 500 mg PO Q4H PRN 02/22/20 10/02/23 Apixaban [Eliquis] 5 mg PO BID 02/22/20 10/02/23 Spironolactone 25 mg PO DAILY 02/22/20 10/02/23 allopurinoL [Zyloprim] 100 mg PO BID 02/22/20 10/02/23 buPROPion HCL [Wellbutrin SR] 100 mg PO BID 02/22/20 10/02/23 Ascorbic Acid [Vitamin C] 1,000 mg PO DAILY 04/21/22 10/02/23 Folic Acid 0.4 mg PO DAILY 04/21/22 10/02/23 Levothyroxine Sodium 100 mcg PO DAILY 04/21/22 10/02/23 Vitamin B Complex [B-Complex] 1 tab PO DAILY 04/21/22 10/02/23 polyethylene glycoL 3350 [Miralax] 17 gm PO DAILY PRN 04/21/22 10/02/23 Bumetanide [BUMEX] 2 mg PO DAILY 10/02/23 10/02/23 Cholecalciferol (Vitamin D3) 50 mcg PO DAILY 10/02/23 10/02/23 [Vitamin D3 (50 Mcg = 2000 Iu)] Ferrous Sulfate [Iron (65 MG 325 mg PO DAILY 10/02/23 10/02/23 Elemental)] Ketoconazole 2% Cream [Nizoral 2%] 1 applic TOPICAL DAILY 10/02/23 10/02/23 Previous Rx's Medication Instructions Recorded Famotidine [Pepcid] 20 mg PO DAILY #30 tab 10/04/23 Allergies Allergy/AdvReac Type Severity Reaction Status Date / Time diphenhydramine Allergy Itching Verified 10/01/23 21:00 [From Xiomara] Review of Systems ROS Statement: Those systems with pertinent positive or pertinent negative responses have been documented in the HPI. ROS Other: All systems not noted in ROS Statement are negative. Limitations: ROS unobtainable due to patients medical condition Constitutional: Reports: fever, weakness Respiratory: Denies: cough, dyspnea Cardiovascular: Denies: chest pain, palpitations Gastrointestinal: Denies: abdominal pain, vomiting Genitourinary: Denies: dysuria Musculoskeletal: Denies: back pain Neurological: Denies: headache Past Medical History Past Medical History: Atrial Fibrillation, Coronary Artery Disease (CAD), Heart Failure, GERD/Reflux, Hyperlipidemia, Hypertension, Myocardial Infarction (KS), Prostate Disorder, Renal Disease, Sleep Apnea/CPAP/BIPAP, Thyroid Disorder Additional Past Medical History / Comment(s): SEE CARDIAC HISTORY/DR. SHELBY. RECENT BOUT OF BRONCHITIS, TAKING PREDNISONE. USES CPAP. Last Myocardial Infarction Date:: UNKNOWN DATE History of Any Multi-Drug Resistant Organisms: None Reported Past Surgical History: Ablation, Cardiac Valve Replacement, Heart Catheterization, Hernia Repair, Pacemaker Additional Past Surgical History / Comment(s): BIVENTRICULAR PACER (BIOTRONIC, EVIA-HF-T, SSS) 01/25/14. Aortic valve replacement 2011 using a #27 trifecta bovine tissue valve. Past Anesthesia/Blood Transfusion Reactions: No Reported Reaction Type of Cardiac Device: Biventricular Pacemaker Device Placement Date:: 01/25/2014 Past Psychological History: No Psychological Hx Reported Smoking Status: Never smoker Past Alcohol Use History: Rare Past Drug Use History: None Reported - Past Family History Mother Family Medical History: Cancer Father Family Medical History: Cancer Brother(s) Family Medical History: Cancer General Exam Limitations: altered mental status General appearance: alert, in no apparent distress Head exam: Present: atraumatic, normocephalic Eye exam: Present: normal appearance, PERRL, EOMI. Absent: scleral icterus, conjunctival injection ENT exam: Present: mucous membranes dry Neck exam: Present: normal inspection Respiratory exam: Present: normal lung sounds bilaterally, rales (Bases). Absent: respiratory distress, wheezes, rhonchi, stridor, accessory muscle use Cardiovascular Exam: Present: regular rate, normal rhythm, normal heart sounds. Absent: systolic murmur, diastolic murmur, rubs, gallop GI/Abdominal exam: Present: soft. Absent: distended, tenderness, guarding, rebound, rigid, mass Extremities exam: Present: normal inspection, normal capillary refill. Absent: pedal edema, calf tenderness Back exam: Present: normal inspection. Absent: CVA tenderness (R), CVA tenderness (L) Neurological exam: Present: alert, CN II-XII intact. Absent: oriented X3, motor sensory deficit Skin exam: Present: warm, dry, intact, normal color. Absent: rash Course Vital Signs 10/01/23 10/01/23 10/01/23 20:47 21:38 22:30 Temperature 100.3 F H Pulse Rate 80 79 93 Respiratory 24 Rate Blood Pressure 114/99 95/72 107/70 O2 Sat by Pulse 95 94 L 95 Oximetry 10/01/23 10/01/23 10/02/23 22:52 23:30 00:30 Temperature 99.1 F Pulse Rate 96 80 80 Respiratory 24 23 24 Rate Blood Pressure 114/84 111/71 123/67 O2 Sat by Pulse 95 95 95 Oximetry 10/02/23 10/02/23 01:30 01:57 Temperature 99.0 F Pulse Rate 80 Respiratory 23 Rate Blood Pressure 99/61 O2 Sat by Pulse 97 Oximetry EKG Findings - EKG Comments: EKG Findings:: Rhythm is paced. Is 87 bpm - EKG Results: EKG: interpreted by MANJUD Medical Decision Making - Medical Decision Making Was pt. sent in by a medical professional or institution (, PA, LIVING SUPERVISOR, urgent care, hospital, or residential...) When possible be specific @ -Patient is transferred here from the outside hospital to have admission for further evaluation and treatment. Did you speak to anyone other than the patient for history (EMS, parent, family, police, friend...)? What history was obtained from this source @ -[No] Did you review nursing and triage notes (agree or disagree)? Why? @ -[I reviewed and agree with nursing and triage notes] Were old charts reviewed (outside hosp., previous admission, EMS record, old EKG, old radiological studies, urgent care reports/EKG's, residential records)? Report findings @ -[No old charts were reviewed] Differential Diagnosis (chest pain, altered mental status, abdominal pain women, abdominal pain men, vaginal bleeding, weakness, fever, dyspnea, syncope, headache, dizziness, GI bleed, back pain, seizure, CVA, palpatations, mental health, musculoskeletal)? @ -Differential Weakness: Hypoglycemia, shock, sepsis, hyponatremia, anemia, infection, KS, ETOH, adverse medicine reaction, overdose, stroke, this is not meant to be an all-inclusive list. EKG interpreted by me (3pts min.). @ -[I interpreted as above] X-rays interpreted by me (1pt min.). @ -[None done] CT interpreted by me (1pt min.). @ -[None done] U/S interpreted by me (1pt. min.). @ -[None done] What testing was considered but not performed or refused? (CT, X-rays, U/S, labs)? Why? @ -[None] What meds were considered but not given or refused? Why? @ -[None] Did you discuss the management of the patient with other professionals (professionals i.e. , PA, LIVING SUPERVISOR, lab, RT, psych nurse, manager social services, harvesting supervisor, teacher, air defence officer, field case manager)? Give summary @ -Case discussed with admitting physician Was smoking cessation discussed for >3mins.? @ -[No] Was critical care preformed (if so, how long)? @ -[No] Were there social determinants of health that impacted care today? How? (Homelessness, low income, unemployed, alcoholism, drug addiction, transportation, low edu. Level, literacy, decrease access to med. care, assisted, rehab)? @ -[No] Was there de-escalation of care discussed even if they declined (Discuss DNR or withdrawal of care, Hospice)? DNR status @ -[No] What co-morbidities impacted this encounter? (DM, HTN, Smoking, COPD, CAD, Cancer, CVA, ARF, Chemo, Hep., AIDS, mental health diagnosis, sleep apnea, morbid obesity)? @ -[None] Was patient admitted / discharged? Hospital course, mention meds given and route, prescriptions, significant lab abnormalities, going to OR and other pertinent info. @ -[Patient is transferred here from the outside hospital. The patient had fever and leukocytosis but they did not find source of infection. Patient is admitted pending results of cultures Undiagnosed new problem with uncertain prognosis? @ -[No] Drug Therapy requiring intensive monitoring for toxicity (Heparin, Nitro, Insulin, Cardizem)? @ -[No] Were any procedures done? @ -[No] Diagnosis/symptom? @ -[Generalized weakness Leukocytosis Possible sepsis Acute, or Chronic, or Acute on Chronic? @ -[Acute Uncomplicated (without systemic symptoms) or Complicated (systemic symptoms)? @ -[Uncomplicated Side effects of treatment? @ -[No] Exacerbation, Progression, or Severe Exacerbation? @ -[No] Poses a threat to life or bodily function? How? (Chest pain, [place], KS, pneumonia, PE, COPD, DKA, ARF, appy, cholecystitis, CVA, Diverticulitis, Homicidal, Suicidal, threat to staff... and all critical care pts) @ -[No] - Lab Data Result diagrams: 10/04/23 02:10 10/04/23 02:10 Lab Results 10/01/23 10/01/23 10/01/23 Range/Units 21:27 21:27 21:27 WBC 19.7 H (3.8-10.6) k/uL RBC 4.29 L (4.30-5.90) m/uL Hgb 13.6 (13.0-17.5) gm/dL Hct 40.5 (39.0-53.0) % MCV 94.5 (80.0-100.0) fL MCH 31.7 (25.0-35.0) pg MCHC 33.5 (31.0-37.0) g/dL RDW 15.0 (11.5-15.5) % Plt Count 270 (150-450) k/uL MPV 7.4 Neutrophils % 88 % Lymphocytes % 5 % Monocytes % 5 % Eosinophils % 1 % Basophils % 0 % Neutrophils # 17.2 H (1.3-7.7) k/uL Lymphocytes # 1.0 (1.0-4.8) k/uL Monocytes # 1.0 (0-1.0) k/uL Eosinophils # 0.1 (0-0.7) k/uL Basophils # 0.0 (0-0.2) k/uL PT 12.0 (10.0-12.5) sec INR 1.1 (<1.2) APTT 25.8 (22.0-30.0) sec Sodium 131 L (137-145) mmol/L Potassium 3.8 (3.5-5.1) mmol/L Chloride 97 L (98-107) mmol/L Carbon Dioxide 28 (22-30) mmol/L Anion Gap 6 mmol/L BUN 37 H (9-20) mg/dL Creatinine 1.72 H (0.66-1.25) mg/dL Est GFR (CKD-EPI)AfAm 42 (>60 ml/min/1.73 sqM) Est GFR (CKD-EPI)NonAf 36 (>60 ml/min/1.73 sqM) Glucose 177 H (74-99) mg/dL POC Glucose (mg/dL) (70-110) mg/dL POC Glu Government Clerk ID Estimated Ave Glu mg/dL mg/dL Hemoglobin A1c (<=6.0) % Plasma Lactic Acid [place] (0.7-2.0) mmol/L Calcium 8.9 (8.4-10.2) mg/dL Total Bilirubin 1.1 (0.2-1.3) mg/dL AST 40 (17-59) U/L ALT 30 (4-49) U/L Alkaline Phosphatase 75 (38-126) U/L Troponin I (0.000-0.034) ng/mL Total Protein 6.5 (6.3-8.2) g/dL Albumin 3.7 (3.5-5.0) g/dL 10/01/23 10/01/23 10/01/23 Range/Units 21:27 21:27 21:27 WBC (3.8-10.6) k/uL RBC (4.30-5.90) m/uL Hgb (13.0-17.5) gm/dL Hct (39.0-53.0) % MCV (80.0-100.0) fL MCH (25.0-35.0) pg MCHC (31.0-37.0) g/dL RDW (11.5-15.5) % Plt Count (150-450) k/uL MPV Neutrophils % % Lymphocytes % % Monocytes % % Eosinophils % % Basophils % % Neutrophils # (1.3-7.7) k/uL Lymphocytes # (1.0-4.8) k/uL Monocytes # (0-1.0) k/uL Eosinophils # (0-0.7) k/uL Basophils # (0-0.2) k/uL PT (10.0-12.5) sec INR (<1.2) APTT (22.0-30.0) sec Sodium (137-145) mmol/L Potassium (3.5-5.1) mmol/L Chloride (98-107) mmol/L Carbon Dioxide (22-30) mmol/L Anion Gap mmol/L BUN (9-20) mg/dL Creatinine (0.66-1.25) mg/dL Est GFR (CKD-EPI)AfAm (>60 ml/min/1.73 sqM) Est GFR (CKD-EPI)NonAf (>60 ml/min/1.73 sqM) Glucose (74-99) mg/dL POC Glucose (mg/dL) (70-110) mg/dL POC Glu Government Clerk ID Estimated Ave Glu mg/dL 209 mg/dL Hemoglobin A1c 8.9 H (<=6.0) % Plasma Lactic Acid [place] 1.5 (0.7-2.0) mmol/L Calcium (8.4-10.2) mg/dL Total Bilirubin (0.2-1.3) mg/dL AST (17-59) U/L ALT (4-49) U/L Alkaline Phosphatase (38-126) U/L Troponin I 0.028 (0.000-0.034) ng/mL Total Protein (6.3-8.2) g/dL Albumin (3.5-5.0) g/dL 10/01/23 Range/Units 21:37 WBC (3.8-10.6) k/uL RBC (4.30-5.90) m/uL Hgb (13.0-17.5) gm/dL Hct (39.0-53.0) % MCV (80.0-100.0) fL MCH (25.0-35.0) pg MCHC (31.0-37.0) g/dL RDW (11.5-15.5) % Plt Count (150-450) k/uL MPV Neutrophils % % Lymphocytes % % Monocytes % % Eosinophils % % Basophils % % Neutrophils # (1.3-7.7) k/uL Lymphocytes # (1.0-4.8) k/uL Monocytes # (0-1.0) k/uL Eosinophils # (0-0.7) k/uL Basophils # (0-0.2) k/uL PT (10.0-12.5) sec INR (<1.2) APTT (22.0-30.0) sec Sodium (137-145) mmol/L Potassium (3.5-5.1) mmol/L Chloride (98-107) mmol/L Carbon Dioxide (22-30) mmol/L Anion Gap mmol/L BUN (9-20) mg/dL Creatinine (0.66-1.25) mg/dL Est GFR (CKD-EPI)AfAm (>60 ml/min/1.73 sqM) Est GFR (CKD-EPI)NonAf (>60 ml/min/1.73 sqM) Glucose (74-99) mg/dL POC Glucose (mg/dL) 184 H (70-110) mg/dL POC Glu Government Clerk ID Joseph Bryson Est[address] Glu mg/dL mg/dL Hemoglobin A1c (<=6.0) % Plasma Lactic Acid [place] (0.7-2.0) mmol/L Calcium (8.4-10.2) mg/dL Total Bilirubin (0.2-1.3) mg/dL AST (17-59) U/L ALT (4-49) U/L Alkaline Phosphatase (38-126) U/L Troponin I (0.000-0.034) ng/mL Total Protein (6.3-8.2) g/dL Albumin (3.5-5.0) g/dL Disposition Clinical Impression: Fever, Sepsis, Delirium Disposition: ADMITTED IP TO THIS HOSP Condition: Fair Is patient prescribed a controlled substance at d/c from ED?: No
[2023-10-01 21:35] LABS: Basophils % (A) 0 %; Eosinophils # (A) 0.1 k/uL (0-0.7); Eosinophils % (A) 1 %; HCT 40.5 % (39.0-53.0); HGB 13.6 gm/dL (13.0-17.5); Lymphocytes % (A) 5 %; MCH 31.7 pg (25.0-35.0); MCHC 33.5 g/dL (31.0-37.0); MCV 94.5 fL (80.0-100.0); Mean Platelet Volume 7.4; Monocytes % (A) 5 %; Neutrophils # (A) 17.2 k/uL (1.3-7.7); Neutrophils % (A) 88 %; Platelet Count 270 k/uL (150-450); RBC 4.29 m/uL (4.30-5.90); WBC 19.7 k/uL (3.8-10.6)
[2023-10-01 21:38] LABS: Glucose,Whole Blood 184 mg/dL (70-110)
[2023-10-01 21:47] LABS: INR 1.1 (<1.2); Partial Thromboplastin Time 25.8 sec (22.0-30.0)
[2023-10-01 21:52] LABS: ALT 30 U/L (4-49); AST 40 U/L (17-59); African American GFR (CKD) 42 (>60 ml/min/1.73 sqM); Albumin 3.7 g/dL (3.5-5.0); Alkaline Phosphatase 75 U/L (38-126); Anion Gap 6 mmol/L; Blood Urea Nitrogen 37 mg/dL (9-20); Calcium 8.9 mg/dL (8.4-10.2); Carbon Dioxide 28 mmol/L (22-30); Chloride 97 mmol/L (98-107); Glucose 177 mg/dL (74-99); Non-African American GFR(CKD) 36 (>60 ml/min/1.73 sqM); Potassium 3.8 mmol/L (3.5-5.1); Sodium 131 mmol/L (137-145); Total Bilirubin 1.1 mg/dL (0.2-1.3); Total Protein 6.5 g/dL (6.3-8.2)
[2023-10-01] MEDS ORDERED: ONDANSETRON 4 MG/2 ML VIAL IVP PRN (21:56)
[2023-10-01] MEDS ORDERED: MELATONIN 3 MG TABLET PO PRN (21:56)
[2023-10-01] MEDS ORDERED: DOCUSATE 100 MG CAP PO PRN (21:56)
[2023-10-01] MEDS ORDERED: NALOXONE 0.4 MG/ML 1 ML VIAL IV PRN (21:56)
[2023-10-01] MEDS: SODIUM CHLORIDE 0.9% 1,000 ML IV SCH (22:35)
[2023-10-01] MEDS: ACETAMINOPHEN TAB 325 MG TAB PO PRN (22:44)
[2023-10-01] MEDS: QUEtiapine 50 MG TAB PO STA (22:45)
[2023-10-01] MEDS: LORazepam 2 MG/ML INJ IV STA (23:32)
[2023-10-02] MEDS: LEVOTHYROXINE 100 MCG TAB PO SCH (06:32)
[2023-10-02 06:41] LABS: Appearance,Urine Clear (Clear); Bacteria,Urine Rare /hpf; Bilirubin,Urine Negative (Negative); Blood,Urine Small (Negative); Color,Urine Yellow; Glucose,Urine (UA) Negative (Negative); Hyaline Casts,Urine 7 /lpf (0-2); Ketones,Urine Negative (Negative); Leukocyte Esterase,Urine Large (Negative); Mucus,Urine Rare /hpf; Nitrite,Urine Negative (Negative); Protein,Urine Trace (Negative); RBC,Urine 8 /hpf (0-5); Specific Gravity,Urine 1.018 (1.001-1.035); Squamous Epithelial Cell,Urine <1 /hpf (0-4); Urobilinogen,Urine <2.0 mg/dL (<2.0); WBC,Urine 81 /hpf (0-5)
[2023-10-02] MEDS: MULTIVITAMINS, THERA 1 EACH TAB PO SCH (08:19)
[2023-10-02] MEDS: polyethylene glycoL 3350 17 GM POWD.PACK PO SCH (08:19)
[2023-10-02] MEDS: CHOLECALCIFEROL 25 MCG (1000 IU) TABLET PO SCH (08:19)
[2023-10-02] MEDS: FOLIC ACID 1 MG TAB PO SCH (08:19)
[2023-10-02] MEDS: FAMOTIDINE 20 MG TAB PO SCH (08:19)
[2023-10-02] MEDS: PANTOPRAZOLE 40 MG TABLET PO SCH (08:20)
[2023-10-02] MEDS: SPIRONOLACTONE 25 MG TAB PO SCH (08:20)
[2023-10-02] MEDS: APIXABAN 2.5 MG TABLET PO SCH (08:20)
[2023-10-02] MEDS: buPROPion SR 100 MG TABLET.ER PO SCH (08:27)
[2023-10-02] MEDS ORDERED: FLUTICASONE NASAL 50MCG/SPRAY 16GM BTL EA NOSTRIL PRN (09:00)
[2023-10-02] MEDS: BUMETANIDE 1 MG TAB PO SCH (09:06)
[2023-10-02] MEDS ORDERED: QUEtiapine 25 MG TAB PO PRN (12:03)
[2023-10-02 12:06] VITALS: BMI 25.0
[2023-10-02] MEDS ORDERED: DEXTROSE 50% SYRINGE 50 ML IVP PRN ×2 (12:07)
--- NOTE | 2023-10-02 12:11 | P.HPIM ---
History of Present Illness H&P Date: 10/02/23 This is a pleasant 83-year-old male with medical history significant for atrial fibrillation anticoagulated with Eliquis, heart failure, hypertension, permanent pacemaker, post TAVR procedure. Appears to have an EF of 45% at baseline. Patient comes down from [facility] with concern for altered mentation and fever. Patient appears to be septic and is currently alert x 1-2 at this time. He is difficult to gather a medical history from this patient. At [facility] had a lactic acid of 2.2, creatinine level of 2.1. Patient was given cefepime and vancomycin and transferred down to [facility] for further evaluation. Blood work reveals a white blood cell count of 19.7, sodium level of 131, BUN of 37, creatinine of 1.72, glucose level of 177. His urinalysis is abnormal with trace protein, small blood, large leukocyte esterase, we will empirically treat for a urinary tract infection and complete a septic workup. Patient will need to be seen by physical therapy and Occupational Therapy as per nursing he was requiring 2-3 people to get him from the bed to the chair. REVIEW OF SYSTEMS: CONSTITUTIONAL: No fever, no malaise, no fatigue. HEENT: No recent visual problems or hearing problems. Denied any sore throat. CARDIOVASCULAR: No chest pain, orthopnea, PND, no palpitations, no syncope. PULMONARY: No shortness of breath, no cough, no hemoptysis. GASTROINTESTINAL: No diarrhea, no nausea, no vomiting, no abdominal pain. NEUROLOGICAL: No headaches, no weakness, no numbness. HEMATOLOGICAL: Denies any bleeding or petechiae. GENITOURINARY: Denies any burning micturition, frequency, or urgency. MUSCULOSKELETAL/RHEUMATOLOGICAL: Denies any joint pain, swelling, or any muscle pain. ENDOCRINE: Denies any polyuria or polydipsia. The rest of the 14-point review of systems is negative. PHYSICAL EXAMINATION: GENERAL: The patient is alert and oriented x1-2, not in any acute distress. Well developed, well nourished. HEENT: Pupils are round and equally reacting to light. EOMI. No scleral icterus. No conjunctival pallor. Normocephalic, atraumatic. No pharyngeal erythema. No thyromegaly. CARDIOVASCULAR: S1 and S2 present. No murmurs, rubs, or gallops. PULMONARY: Chest is clear to auscultation, no wheezing or crackles. ABDOMEN: Soft, nontender, nondistended, normoactive bowel sounds. No palpable organomegaly. MUSCULOSKELETAL: No joint swelling or deformity. EXTREMITIES: No cyanosis, clubbing, or pedal edema. NEUROLOGICAL: Gross neurological examination did not reveal any focal deficits. Diffusely weak. SKIN: No rashes. Assessment and plan Altered mental status secondary to acute toxic and metabolic encephalopathy secondary to infection and renal dysfunction Acute kidney injury secondary to acute tubular necrosis from infection rule out urinary retention and will check a bladder scan Acute urinary tract infection with sepsis present on admission blood culture and urine culture have been taken and patient will be started on IV ceftriaxone while waiting for cultures to finalize Leukocytosis secondary to above Hyponatremia hypovolemic patient will be given normal saline running at 75 MLS per hour sodium is expected to improve History of heart failure with systolic dysfunction does not appear to be any acute exacerbation has a known ejection fraction of 40 to 45% patient is being hydrated will stop fluids at 9pm History of hypertension currently normotensive recommend to hold off on antihypertensives at this time Hx of atrial fibrillation with underlying pacemaker patient is anticoagulant with Eliquis which has been resumed patient is on a renal dose adjustment at 2.5 mg twice a day Status post TAVR procedure Hyperglycemia will start patient on sliding scale Accu-Cheks and will check a hemoglobin A1c Sleep apnea with CPAP use Generalized weakness and chronic medical debility will need to see PT/OT and may need rehab GI prophylaxis: Omeprazole DVT prophylaxis: Eliquis NO CODE The impression and plan of care has been dictated by Krystle Baptiste, Nurse Practitioner as directed. Dr. Alejandro MD I have performed a history and physical examination and medical decision making of this patient, discussed the same with the dictator, and agree with the dictators assessment and plan as written, documented as a scribe. Based on total visit time, I have performed more than 50% of this visit. Past Medical History Past Medical History: Atrial Fibrillation, Coronary Artery Disease (CAD), Heart Failure, GERD/Reflux, Hyperlipidemia, Hypertension, Myocardial Infarction ([place]), Prostate Disorder, Renal Disease, Sleep Apnea/CPAP/BIPAP, Thyroid Disorder Additional Past Medical History / Comment(s): SEE CARDIAC HISTORY/DR. SHELBY. RECENT BOUT OF BRONCHITIS, TAKING PREDNISONE. USES CPAP. Last Myocardial Infarction Date:: UNKNOWN DATE History of Any Multi-Drug Resistant Organisms: None Reported Past Surgical History: Ablation, Cardiac Valve Replacement, Heart Catheteri zation, Hernia Repair, Pacemaker Additional Past Surgical History / Comment(s): BIVENTRICULAR PACER (BIOTRONIC, EVIA-HF-T, SSS) 01/25/14. Aortic valve replacement 2011 using a #27 trifecta bovine tissue valve. Past Anesthesia/Blood Transfusion Reactions: No Reported Reaction Type of Cardiac Device: Biventricular Pacemaker Device Placement Date:: 01/25/2014 Past Psychological History: No Psychological Hx Reported Smoking Status: Never smoker Past Alcohol Use History: Rare Past Drug Use History: None Reported - Past Family History Mother Family Medical History: Cancer Father Family Medical History: Cancer Brother(s) Family Medical History: Cancer Medications and Allergies Home Medications Medication Instructions Recorded Confirmed Type Fluticasone Nasal [place] [Flonase 1 spray EA NOSTRIL DAILY PRN 06/17/18 10/02/23 History Nasal [place]] Montelukast [Singulair] 10 mg PO HS 06/17/18 10/02/23 History Omeprazole [PriLOSEC] 20 mg PO BID 06/17/18 10/02/23 History Tamsulosin HCl [Flomax] 0.4 mg PO HS 06/17/18 10/02/23 History metOLazone [Zaroxolyn] 5 mg PO TUTH 06/17/18 10/02/23 History Acetaminophen Tab [Tylenol] 500 mg PO Q4H PRN 02/22/20 10/02/23 History Apixaban [Eliquis] 5 mg PO BID 02/22/20 10/02/23 History Spironolactone 25 mg PO DAILY 02/22/20 10/02/23 History allopurinoL [Zyloprim] 100 mg PO BID 02/22/20 10/02/23 History buPROPion HCL [Wellbutrin SR] 100 mg PO BID 02/22/20 10/02/23 History Ascorbic Acid [Vitamin C] 1,000 mg PO DAILY 04/21/22 10/02/23 History Folic Acid 0.4 mg PO DAILY 04/21/22 10/02/23 History Levothyroxine Sodium 100 mcg PO DAILY 04/21/22 10/02/23 History Vitamin B Complex [B-Complex] 1 tab PO DAILY 04/21/22 10/02/23 History polyethylene glycoL 3350 [Miralax] 17 gm PO DAILY PRN 04/21/22 10/02/23 History Bumetanide [BUMEX] 2 mg PO DAILY 10/02/23 10/02/23 History Cholecalciferol (Vitamin D3) 50 mcg PO DAILY 10/02/23 10/02/23 History [Vitamin D3 (50 Mcg = 2000 Iu)] Ferrous Sulfate [Feosol] 325 mg PO DAILY 10/02/23 10/02/23 History Ketoconazole 2% Cream [Nizoral 2%] 1 applic TOPICAL DAILY 10/02/23 10/02/23 History Allergies Allergy/AdvReac Type Severity Reaction Status Date / Time diphenhydramine Allergy Itching Verified 10/01/23 21:00 [From Xiomara] Physical Exam Vitals: Vital Signs Temp Pulse Pulse Pulse Resp BP BP 10/02/23 07:30 99.3 F 80 20 95/61 10/02/23 03:14 22 10/02/23 02:48 99.6 F 80 22 110/70 10/02/23 01:57 99.0 F 10/02/23 01:30 80 23 99/61 10/02/23 00:30 80 24 123/67 10/01/23 23:30 80 23 111/71 10/01/23 22:52 99.1 F 96 24 114/84 10/01/23 22:30 93 24 107/70 10/01/23 21:38 79 24 95/72 10/01/23 20:47 100.3 F H 80 24 114/99 Pulse Ox 10/02/23 07:30 94 L 10/02/23 03:14 10/02/23 02:48 94 L 10/02/23 01:57 10/02/23 01:30 97 10/02/23 00:30 95 10/01/23 23:30 95 10/01/23 22:52 95 10/01/23 22:30 95 10/01/23 21:38 94 L 10/01/23 20:47 95 Intake and Output 10/01/23 10/02/23 10/02/23 22:59 06:59 14:59 Intake Total 590 Output Total 550 Balance 40 Intake: Oral 590 Output: Urine 550 Straight 550 Other: Voiding Method External Catheter Weight 90.718 kg 90.718 kg Results CBC & Chem 7: 10/01/23 21:27 10/01/23 21:27 Labs: Abnormal Lab Results - Last 24 Hours (Table) 10/01/23 10/01/23 10/01/23 Range/Units 21:27 21:27 21:37 WBC 19.7 H (3.8-10.6) k/uL RBC 4.29 L (4.30-5.90) m/uL Neutrophils # 17.2 H (1.3-7.7) k/uL Sodium 131 L (137-145) mmol/L Chloride 97 L (98-107) mmol/L BUN 37 H (9-20) mg/dL Creatinine 1.72 H (0.66-1.25) mg/dL Glucose 177 H (74-99) mg/dL POC Glucose (mg/dL) 184 H (70-110) mg/dL Urine Protein (Negative) Urine Blood (Negative) Ur Leukocyte Esterase (Negative) Urine RBC (0-5) /hpf Urine WBC (0-5) /hpf Urine Bacteria (None) /hpf Hyaline Casts (0-2) /lpf Urine Mucus (None) /hpf 10/02/23 Range/Units 06:00 WBC (3.8-10.6) k/uL RBC (4.30-5.90) m/uL Neutrophils # (1.3-7.7) k/uL Sodium (137-145) mmol/L Chloride (98-107) mmol/L BUN (9-20) mg/dL Creatinine (0.66-1.25) mg/dL Glucose (74-99) mg/dL POC Glucose (mg/dL) (70-110) mg/dL Urine Protein Trace H (Negative) Urine Blood Small H (Negative) Ur Leukocyte Esterase Large H (Negative) Urine RBC 8 H (0-5) /hpf Urine WBC 81 H (0-5) /hpf Urine Bacteria Rare H (None) /hpf Hyaline Casts 7 H (0-2) /lpf Urine Mucus Rare H (None) /hpf Thrombosis Risk Factor Assmnt - Choose All That Apply Each Factor Represents 1 point: Obesity (BMI >25) Each Risk Factor Represents 3 Points: Age 75 years or older Thrombosis Risk Factor Assessment Total Risk Factor Score: 4 Thrombosis Risk Factor Assessment Level: Moderate Risk Assessment and Plan Time with Patient: Less than 30
[2023-10-02 12:24] LABS: Glucose,Whole Blood 202 mg/dL (70-110)
[2023-10-02] MEDS: SODIUM CHLORIDE 0.9% 1,000 ML IV SCH (12:32)
[2023-10-02] MEDS: INSULIN ASPART (NovoLOG) 100 UNIT/ML VIAL SQ SCH (12:34)
--- NOTE | 2023-10-02 12:59 | XR ---
EXAMINATION TYPE: XR chest 1V portable DATE OF EXAM: 10/02/2023 12:40 PM CLINICAL INDICATION:Male, 83 years old with history of SOB; COMPARISON: Chest radiographs from 02/25/2020 TECHNIQUE: XR chest 1V portable Frontal view of the chest. FINDINGS: Lungs/Pleura: There is no evidence of pleural effusion, focal consolidation, or pneumothorax. Pulmonary vascularity: Pulmonary vascular congestion. Heart/mediastinum: Cardiomediastinal silhouette is enlarged and stable. Three lead cardiac conduction device overlying the left hemithorax with lead tips projecting over the right ventricle, right atriu m and coronary sinus. Musculoskeletal: No acute osseous pathology. IMPRESSION: Cardiomegaly and mild pulmonary vascular congestion. Correlate with BNP for congestive heart failure.
[2023-10-02 17:15] LABS: Glucose,Whole Blood 143 mg/dL (70-110)
[2023-10-02 20:42] LABS: Glucose,Whole Blood 121 mg/dL (70-110)
[2023-10-02] MEDS: TAMSULOSIN 0.4 MG CAP.ER.24H PO SCH (21:35)
[2023-10-02] MEDS: MONTELUKAST 10 MG TAB PO SCH (21:35)
[2023-10-03 07:34] LABS: Glucose,Whole Blood 121 mg/dL (70-110)
[2023-10-03 12:15] LABS: Glucose,Whole Blood 197 mg/dL (70-110)
--- NOTE | 2023-10-03 17:16 | P.PN ---
Subjective Progress Note Date: 10/03/23 This is a pleasant 83-year-old male with medical history significant for atrial fibrillation anticoagulated with Eliquis, heart failure, hypertension, permanent pacemaker, post TAVR procedure. Appears to have an EF of 45% at baseline. Patient comes down from [facility] with concern for altered mentation and fever. Patient appears to be septic and is currently alert x 1-2 at this time. He is difficult to gather a medical history from this patient. At [facility] had a lactic acid of 2.2, creatinine level of 2.1. Patient was given cefepime and vancomycin and transferred down to [facility] for further evaluation. Blood work reveals a white blood cell count of 19.7, sodium level of 131, BUN of 37, creatinine of 1.72, glucose level of 177. His urinalysis is abnormal with trace protein, small blood, large leukocyte esterase, we will empirically treat for a urinary tract infection and complete a septic workup. Patient will need to be seen by physical therapy and Occ upational Therapy as per nursing he was requiring 2-3 people to get him from the bed to the chair. 10/03/2023 Patient is evaluated today in follow up on the medical floor and currently more awake alert and oriented. He has no acute complaints today he is not complaining of dysuria at this time. Patients chest xray reveals cardiomegaly and pulmonary vascular congestion. Viral panel negative for covid, rsv and influenza. Procalcitonin level 0.68. Hemoglobin A1C 8.9. Patient found to be retaining urine and now requiring indwelling catheter. REVIEW OF SYSTEMS: CONSTITUTIONAL: No fever, no malaise, no fatigue. HEENT: No recent visual problems or hearing problems. Denied any sore throat. CARDIOVASCULAR: No chest pain, orthopnea, PND, no palpitations, no syncope. PULMONARY: No shortness of breath, no cough, no hemoptysis. GASTROINTESTINAL: No diarrhea, no nausea, no vomiting, no abdominal pain. NEUROLOGICAL: No headaches, no weakness, no numbness. The rest of the 14-point review of systems is negative. PHYSICAL EXAMINATION: GENERAL: The patient is alert and oriented x1-2, not in any acute distress. Well developed, well nourished. HEENT: Pupils are round and equally reacting to light. EOMI. No scleral icterus. No conjunctival pallor. Normocephalic, atraumatic. No pharyngeal erythema. No thyromegaly. CARDIOVASCULAR: S1 and S2 present. No murmurs, rubs, or gallops. PULMONARY: Chest is clear to auscultation, no wheezing or crackles. ABDOMEN: Soft, nontender, nondistended, normoactive bowel sounds. No palpable organomegaly. MUSCULOSKELETAL: No joint swelling or deformity. EXTREMITIES: No cyanosis, clubbing, or pedal edema. NEUROLOGICAL: Gross neurological examination did not reveal any focal deficits. Diffusely weak. SKIN: No rashes. Assessment and plan Altered mental status secondary to acute toxic and metabolic encephalopathy secondary to infection and renal dysfunction Acute kidney injury secondary to acute tubular necrosis from infection component of urinary retention Urinary retention requiring indwelling villa catheter and is continued on flomax . Acute urinary tract infection with sepsis present on admission Leukocytosis secondary to above Hyponatremia hypovolemic History of heart failure with systolic dysfunction does not appear to be any acute exacerbation has a known ejection fraction of 40 to 45% History of hypertension currently normotensive recommend to hold off on antihypertensives at this time Hx of atrial fibrillation with underlying pacemaker patient is anticoagulant with Eliquis which has been resumed patient is on a renal dose adjustment at 2.5 mg twice a day Status post TAVR procedure Hyperglycemia will start patient on sliding scale Accu-Cheks and will check a hemoglobin A1c Sleep apnea with CPAP use Generalized weakness and chronic medical debility GI prophylaxis: Omeprazole DVT prophylaxis: Eliquis NO CODE Plan Repeat blood work in the AM Pending urine culture Continue with indwelling catheter and patient remains on flomax Patient will need to be evaluated by physical therapy and occupational therapy and will require subacute rehab. patient will be continued on IV ceftriaxone while waiting for cultures to finalize The impression and plan of care has been dictated by Krystle Baptiste Nurse Practitioner as directed. Dr. Alejandro MD I have performed a history and physical examination and medical decision making of this patient, discussed the same with the dictator, and agree with the dictators assessment and plan as written, documented as a scribe. Based on total visit time, I have performed more than 50% of this visit. Objective - Vital Signs Vital signs: Vital Signs Temp 98.4 F 10/03/23 14:03 Pulse 79 10/03/23 14:03 Resp 18 10/03/23 14:03 BP 103/67 10/03/23 14:03 Pulse Ox 97 10/03/23 14:03 FiO2 Intake & Output 10/02/23 10/03/23 10/03/23 18:59 06:59 18:59 Intake Total 375 Output Total 1344 1000 Balance -1344 -625 Weight 90.718 kg Intake: Intake, IV Titration 375 Amount Sodium Chloride 0.9% 1, 375 000 ml @ 75 mls/hr IV . [id number] WILLARD Rx#:[id number] Output: Urine 925 1000 Post Void Residual 419 Other: Voiding Method External Catheter Indwelling Catheter Indwelling Catheter - Labs CBC & Chem 7: 10/01/23 21:27 10/01/23 21:27 Labs: Abnormal Lab Results - Last 24 Hours (Table) 10/01/23 10/02/23 10/02/23 Range/Units 21:27 17:14 20:40 POC Glucose (mg/dL) 143 H 121 H (70-110) mg/dL Hemoglobin A1c 8.9 H (<=6.0) % 10/03/23 10/03/23 Range/Units 07:33 12:14 POC Glucose (mg/dL) 121 H 197 H (70-110) mg/dL Hemoglobin A1c (<=6.0) % Assessment and Plan Time with Patient: Less than 30
[2023-10-03 17:23] LABS: Glucose,Whole Blood 145 mg/dL (70-110)
[2023-10-03 20:33] LABS: Glucose,Whole Blood 153 mg/dL (70-110)
[2023-10-04 07:28] LABS: Glucose,Whole Blood 129 mg/dL (70-110)
[2023-10-04 09:08] LABS: BUN/Creat Ratio 17.31 Ratio (12.00-20.00); Blood Urea Nitrogen 22.5 mg/dL (9.0-27.0); Calcium 8.5 mg/dL (8.7-10.3); Carbon Dioxide 25.4 mmol/L (21.6-31.8); Chloride 98 mmol/L (96-109); Glucose 105 mg/dL (70-110); Magnesium 1.8 mg/dL (1.5-2.4); Potassium 3.5 mmol/L (3.5-5.5); Sodium 136 mmol/L (135-145)
[2023-10-04 09:12] LABS: HGB 12.5 g/dL (13.0-17.0); MCH 30.9 pg (27.0-32.0); MCHC 32.9 g/dL (32.0-37.0); MCV 93.8 FL (80.0-97.0); Mean Platelet Volume 10.6 FL (9.5-12.2); NRBC Per 100 WBC 0 X 10*3/uL (0.00-0.01); Platelet Count 230 X 10*3/uL (140-440); RBC 4.05 X 10*6/uL (4.40-5.60); RDW 15.3 % (11.5-14.5); WBC 11.57 X 10*3/uL (4.50-10.00)
[2023-10-04 09:48] LABS: Basophils # (A) 0.07 X 10*3/uL (0.00-0.10); Basophils % (A) 0.6 %; Eosinophils # (A) 0.42 X 10*3/uL (0.04-0.35); Eosinophils % (A) 3.6 %; Lymphocytes # (A) 1.73 X 10*3/uL (0.90-5.00); Monocytes # (A) 1.91 X 10*3/uL (0.20-1.00); Monocytes % (A) 16.5 %; Neutrophils # (A) 7.29 X 10*3/uL (1.80-7.70); RBC Morphology Normal (Normal)
[2023-10-04 12:30] LABS: Glucose,Whole Blood 148 mg/dL (70-110)
--- NOTE | 2023-10-04 13:27 | P.DS ---
Providers Date of admission: 10/01/23 21:58 Attending physician: Nu Fam MD Primary care physician: [facility] Course: Final Diagnosis Altered mental status secondary to acute toxic and metabolic encephalopathy secondary to infection and renal dysfunction. Mentation has improved. Acute kidney injury secondary to acute tubular necrosis from infection component of urinary retention Urinary retention requiring indwelling villa catheter and is continued on flomax. Acute urinary tract infection with sepsis present on admission although urine culture is negative. Leukocytosis secondary to above Hyponatremia hypovolemic History of heart failure with systolic dysfunction does not appear to be any acute exacerbation has a known ejection fraction of 40 to 45% History of hypertension currently normotensive recommend to hold off on antihyp ertensives at this time Hx of atrial fibrillation with underlying pacemaker patient is anticoagulant with Eliquis which has been resumed Status post TAVR procedure x2 per . Hyperglycemia will start patient on sliding scale Accu-Cheks and will check a hemoglobin A1c Sleep apnea with CPAP use Generalized weakness and chronic medical debility Discharge Disposition Patient stable medically for discharge to subacute rehab. Patient will continue on Flomax and continue with indwelling Villa catheter for 2-3 more days would recommend a voiding trial at that point or may follow-up with urology in the office for further recommendations. Patient should repeat blood work in 2 to 3 days. Patient's is recommending rehab at this time so patient can return home. Hospital Course This is a pleasant 83-year-old male with medical history significant for atrial fibrillation anticoagulated with Eliquis, heart failure, hypertension, permanent pacemaker, post TAVR procedure. Appears to have an EF of 45% at baseline. Patient comes down from [facility] with concern for altered mentation and fever. Patient appears to be septic and is currently alert x 1-2 at this time. He is difficult to gather a medical history from this patient. At [facility] had a lactic acid of 2.2, creatinine level of 2.1. Patient was given cefepime and vancomycin and transferred down to [facility] for further evaluation. Blood work reveals a white blood cell count of 19.7, sodium level of 131, BUN of 37, creatinine of 1.72, glucose level of 177. His urinalysis is abnormal with trace protein, small blood, large leukocyte esterase, we will empirically treat for a urinary tract infection and complete a septic workup. Patient will need to be seen by physical therapy and Occupat ional Therapy as per nursing he was requiring 2-3 people to get him from the bed to the chair. He was evaluated follow-up found to have urinary retention that required an indwelling Villa catheter. He has been continued on Flomax and continues on discharge and recommend to continue with the indwelling catheter for now and follow-up with a urologist on an outpatient basis. Patient's renal function has normalized currently with a BUN of 22.5 and a creatinine of 1.3, sodium level 136. Patient's white blood cell count has improved down to 11.57 and he is no longer having any fever. Patient's urine culture was found to be negative and he has completed a course of IV ceftriaxone while in the hospital will not require any further antibiotics on discharge. After speaking with patient's regarding discharge planning she states that the patient is unable to return home as she is unable to care for him at this time due to his weakness and would like this patient to go to subacute rehab. We discussed options and patient's would like [facility] bed and this is being arranged per social work. He is not currently having shortness of breath no chest pain no nausea vomiting or diarrhea. He is alert and oriented x 3 his focal logical deficits are negative he has diffuse weakness due to significant medical debility and deconditioning and wound and would benefit greatly from subacute rehab on discharge. Please see medication reconciliation for a list of current medications. Thank you for allowing us to participate in the care of this patient. The impression and plan of care has been dictated by Krystle Baptiste, Nurse Practitioner as directed. Dr. Alejandro MD I have performed a history and physical examination and medical decision making of this patient, discussed the same with the dictator, and agree with the dictators assessment and plan as written, documented as a scribe. Based on total visit time, I have performed more than 50% of this visit. Patient Condition at Discharge: Fair Plan - Discharge Summary New Discharge Prescriptions: New Famotidine [Pepcid] 20 mg PO DAILY #30 tab Continue Tamsulosin HCl [Flomax] 0.4 mg PO HS Montelukast [Singulair] 10 mg PO HS Omeprazole [PriLOSEC] 20 mg PO BID metOLazone [Zaroxolyn] 5 mg PO TUTH Fluticasone Nasal [place] [Flonase Nasal [place]] 1 spray EA NOSTRIL DAILY PRN PRN Reason: Allergy Symptoms buPROPion HCL [Wellbutrin SR] 100 mg PO BID Apixaban [Eliquis] 5 mg PO BID allopurinoL [Zyloprim] 100 mg PO BID Acetaminophen Tab [Tylenol] 500 mg PO Q4H PRN PRN Reason: Pain Spironolactone 25 mg PO DAILY Ascorbic Acid [Vitamin C] 1,000 mg PO DAILY Folic Acid 0.4 mg PO DAILY Levothyroxine Sodium 100 mcg PO DAILY polyethylene glycoL 3350 [Miralax] 17 gm PO DAILY PRN PRN Reason: Constipation Vitamin B Complex [B-Complex] 1 tab PO DAILY Bumetanide [BUMEX] 2 mg PO DAILY Cholecalciferol (Vitamin D3) [Vitamin D3 (50 Mcg = 2000 Iu)] 50 mcg PO DAILY Ferrous Sulfate [Iron (65 MG Elemental)] 325 mg PO DAILY Ketoconazole 2% Cream [Nizoral 2%] 1 applic TOPICAL DAILY Discharge Medication List Fluticasone Nasal [place] [Flonase Nasal [place]] 1 spray EA NOSTRIL DAILY PRN 06/17/18 [History] Montelukast [Singulair] 10 mg PO HS 06/17/18 [History] Omeprazole [PriLOSEC] 20 mg PO BID 06/17/18 [History] Tamsulosin HCl [Flomax] 0.4 mg PO HS 06/17/18 [History] metOLazone [Zaroxolyn] 5 mg PO TUTH 06/17/18 [History] Acetaminophen Tab [Tylenol] 500 mg PO Q4H PRN 02/22/20 [History] Apixaban [Eliquis] 5 mg PO BID 02/22/20 [History] Spironolactone 25 mg PO DAILY 02/22/20 [History] allopurinoL [Zyloprim] 100 mg PO BID 02/22/20 [History] buPROPion HCL [Wellbutrin SR] 100 mg PO BID 02/22/20 [History] Ascorbic Acid [Vitamin C] 1,000 mg PO DAILY 04/21/22 [History] Folic Acid 0.4 mg PO DAILY 04/21/22 [History] Levothyroxine Sodium 100 mcg PO DAILY 04/21/22 [History] Vitamin B Complex [B-Complex] 1 tab PO DAILY 04/21/22 [History] polyethylene glycoL 3350 [Miralax] 17 gm PO DAILY PRN 04/21/22 [History] Bumetanide [BUMEX] 2 mg PO DAILY 10/02/23 [History] Cholecalciferol (Vitamin D3) [Vitamin D3 (50 Mcg = 2000 Iu)] 50 mcg PO DAILY 10/02/23 [History] Ferrous Sulfate [Iron (65 MG Elemental)] 325 mg PO DAILY 10/02/23 [History] Ketoconazole 2% Cream [Nizoral 2%] 1 applic TOPICAL DAILY 10/02/23 [History] Famotidine [Pepcid] 20 mg PO DAILY #30 tab 10/04/23 [Rx] Follow up Appointment(s)/Referral(s): Rob Page NPC [Primary Care Provider] - 1-2 days Ambulatory/Diagnostic Orders: Basic Metabolic Panel [LAB.AMB] Time Frame: 3 Days, Location: None Selected Complete Blood Count w/diff [LAB.AMB] Location: None Selected
[2023-10-04 17:10] LABS: Glucose,Whole Blood 153 mg/dL (70-110)
[2023-10-04 20:08] LABS: Glucose,Whole Blood 165 mg/dL (70-110)
[2023-10-05 07:10] LABS: Glucose,Whole Blood 116 mg/dL (70-110)
[2023-10-05 07:53] VITALS: BP 118/76; PULSE 76; RESP 20; TEMP 97.6
[2023-10-05] MEDS ORDERED: metOLazone 5 MG TAB PO PRN (09:00)
--- NOTE | 2023-10-05 15:27 | P.DS ---
Providers Date of admission: 10/01/23 21:58 Attending physician: Nu Fam MD Primary care physician: [facility] Course: Final Diagnosis Altered mental status secondary to acute toxic and metabolic encephalopathy secondary to infection and renal dysfunction. Mentation has improved. Acute kidney injury secondary to acute tubular necrosis from infection component of urinary retention Urinary retention requiring indwelling villa catheter and is continued on flomax. Acute urinary tract infection with sepsis present on admission although urine culture is negative. Leukocytosis secondary to above Hyponatremia hypovolemic History of heart failure with systolic dysfunction does not appear to be any acute exacerbation has a known ejection fraction of 40 to 45% History of hypertension currently normotensive recommend to hold off on antihyp ertensives at this time Hx of atrial fibrillation with underlying pacemaker patient is anticoagulant with Eliquis which has been resumed Status post TAVR procedure x2 per . Hyperglycemia will start patient on sliding scale Accu-Cheks and will check a hemoglobin A1c Sleep apnea with CPAP use Generalized weakness and chronic medical debility Discharge Disposition Patient stable medically for discharge to subacute rehab. Patient will continue on Flomax and continue with indwelling Villa catheter for 2-3 more days would recommend a voiding trial at that point or may follow-up with urology in the office for further recommendations. Patient should repeat blood work in 2 to 3 days. Patient's is recommending rehab at this time so patient can return home. follow up with urology on discharge. Hospital Course This is a pleasant 83-year-old male with medical history significant for atrial fibrillation anticoagulated with Eliquis, heart failure, hypertension, permanent pacemaker, post TAVR procedure. Appears to have an EF of 45% at baseline. Patient comes down from [facility] with concern for altered mentation and fever. Patient appears to be septic and is currently alert x 1-2 at this time. He is difficult to gather a medical history from this patient. At [facility] had a lactic acid of 2.2, creatinine level of 2.1. Patient was given cefepime and vancomycin and transferred down to [facility] for further evaluation. Blood work reveals a white blood cell count of 19.7, sodium level of 131, BUN of 37, creatinine of 1.72, glucose level of 177. His urinalysis is abnormal with trace protein, small blood, large leukocyte esterase, we will empirically treat for a urinary tract infection and complete a septic workup. Patient will need to be seen by physical therapy and Occupational Therapy as per nursing he was requiring 2-3 people to get him from the bed to the chair. He was evaluated follow-up found to have urinary retention that required an indwelling Villa catheter. He has been continued on Flomax and continues on discharge and recommend to continue with the indwelling catheter for now and follow-up with a urologist on an outpatient basis. Patient's renal function has normalized currently with a BUN of 22.5 and a creatinine of 1.3, sodium level 136. Patient's white blood cell count has improved down to 11.57 and he is no longer having any fever. Patient's urine culture was found to be negative and he has completed a course of IV ceftriaxone while in the hospital will not require any further antibiotics on discharge. After speaking with patient's regarding discharge planning she states that the patient is unable to return home as she is unable to care for him at this time due to his weakness and would like this patient to go to subacute rehab. We discussed options and patient's would like [facility] bed and this is being arranged per social work. He is not currently having shortness of breath no chest pain no nausea vomiting or diarrhea. He is alert and oriented x 3 his focal logical deficits are negative he has diffuse weakness due to significant medical debility and deconditioning and wound and would benefit greatly from subacute rehab on discharge. Please see medication reconciliation for a list of current medications. Thank you for allowing us to participate in the care of this patient. The impression and plan of care has been dictated by Krystle Baptiste, Nurse Practitioner as directed. Dr. Alejandro MD I have performed a history and physical examination and medical decision making of this patient, discussed the same with the dictator, and agree with the dictators assessment and plan as written, documented as a scribe. Based on total visit time, I have performed more than 50% of this visit. Patient Condition at Discharge: Fair Plan - Discharge Summary New Discharge Prescriptions: New Famotidine [Pepcid] 20 mg PO DAILY #30 tab Continue Tamsulosin HCl [Flomax] 0.4 mg PO HS Montelukast [Singulair] 10 mg PO HS Omeprazole [PriLOSEC] 20 mg PO BID metOLazone [Zaroxolyn] 5 mg PO TUTH Fluticasone Nasal [place]us [Flonase Nasal Sabattus] 1 spray EA NOSTRIL DAILY PRN PRN Reason: Allergy Symptoms buPROPion HCL [Wellbutrin SR] 100 mg PO BID Apixaban [Eliquis] 5 mg PO BID allopurinoL [Zyloprim] 100 mg PO BID Acetaminophen Tab [Tylenol] 500 mg PO Q4H PRN PRN Reason: Pain Spironolactone 25 mg PO DAILY Ascorbic Acid [Vitamin C] 1,000 mg PO DAILY Folic Acid 0.4 mg PO DAILY Levothyroxine Sodium 100 mcg PO DAILY polyethylene glycoL 3350 [Miralax] 17 gm PO DAILY PRN PRN Reason: Constipation Vitamin B Complex [B-Complex] 1 tab PO DAILY Bumetanide [BUMEX] 2 mg PO DAILY Cholecalciferol (Vitamin D3) [Vitamin D3 (50 Mcg = 2000 Iu)] 50 mcg PO DAILY Ferrous Sulfate [Iron (65 MG Elemental)] 325 mg PO DAILY Ketoconazole 2% Cream [Nizoral 2%] 1 applic TOPICAL DAILY Discharge Medication List Fluticasone Nasal [place]attus [Flonase Nasal Sabattus] 1 spray EA NOSTRIL DAILY PRN 06/17/18 [History] Montelukast [Singulair] 10 mg PO HS 06/17/18 [History] Omeprazole [PriLOSEC] 20 mg PO BID 06/17/18 [History] Tamsulosin HCl [Flomax] 0.4 mg PO HS 06/17/18 [History] metOLazone [Zaroxolyn] 5 mg PO TUTH 06/17/18 [History] Acetaminophen Tab [Tylenol] 500 mg PO Q4H PRN 02/22/20 [History] Apixaban [Eliquis] 5 mg PO BID 02/22/20 [History] Spironolactone 25 mg PO DAILY 02/22/20 [History] allopurinoL [Zyloprim] 100 mg PO BID 02/22/20 [History] buPROPion HCL [Wellbutrin SR] 100 mg PO BID 02/22/20 [History] Ascorbic Acid [Vitamin C] 1,000 mg PO DAILY 04/21/22 [History] Folic Acid 0.4 mg PO DAILY 04/21/22 [History] Levothyroxine Sodium 100 mcg PO DAILY 04/21/22 [History] Vitamin B Complex [B-Complex] 1 tab PO DAILY 04/21/22 [History] polyethylene glycoL 3350 [Miralax] 17 gm PO DAILY PRN 04/21/22 [History] Bumetanide [BUMEX] 2 mg PO DAILY 10/02/23 [History] Cholecalciferol (Vitamin D3) [Vitamin D3 (50 Mcg = 2000 Iu)] 50 mcg PO DAILY 10/02/23 [History] Ferrous Sulfate [Iron (65 MG Elemental)] 325 mg PO DAILY 10/02/23 [History] Ketoconazole 2% Cream [Nizoral 2%] 1 applic TOPICAL DAILY 10/02/23 [History] Famotidine [Pepcid] 20 mg PO DAILY #30 tab 10/04/23 [Rx] Follow up Appointment(s)/Referral(s): Bijan Rosas MD [STAFF PHYSICIAN] - 1 Week Lauri Reynolds DO [STAFF PHYSICIAN] - 1 Week Rob Page NPC [Primary Care Provider] - 1-2 days Ambulatory/Diagnostic Orders: Basic Metabolic Panel [LAB.AMB] Time Frame: 3 Days, Location: None Selected Complete Blood Count w/diff [LAB.AMB] Location: None Selected Discharge Disposition: TRANSFER TO SNF/ECF
== END 2023-10-05 10:27 | DRG 871 ==
LOC: EC 20:35 → 5NMEDONC 21:58
PROVIDERS: ADMIT Internal Medicine; ATTEND Internal Medicine
DX: A41.9 Sepsis, unspecified organism (principal); G92.8 Other toxic encephalopathy; N17.0 Acute kidney failure with tubular necrosis; I50.22 Chronic systolic (congestive) heart failure; N39.0 Urinary tract infection, site not specified; E87.1 Hypo-osmolality and hyponatremia; I25.2 Old myocardial infarction; I25.10 Atherosclerotic heart disease of native coronary artery without angina pectoris; I48.91 Unspecified atrial fibrillation; I11.0 Hypertensive heart disease with heart failure; Z79.01 Long term (current) use of anticoagulants; Z79.890 Hormone replacement therapy; Z79.899 Other long term (current) drug therapy; Z95.0 Presence of cardiac pacemaker; Z95.2 Presence of prosthetic heart valve; E86.1 Hypovolemia; E78.5 Hyperlipidemia, unspecified; G47.30 Sleep apnea, unspecified; R33.8 Other retention of urine; Z66 Do not resuscitate
CPT/HCPCS: 36415; 71045; 80048; 80053; 81001; 83036; 83605; 83735; 84145; 84484; 85025; 85610; 85730; 87040; 87086; 87636; 93005; 96374; 99285